=== PATIENT | female | born 1945 | race Caucasian/White ===

== ENCOUNTER 2019-08-30 12:40 | Outpatient (CLI) | payer MEDICARE, MEDICAID, SELFPAY ==
--- NOTE | 2019-08-30 13:02 | MR_ITS ---
WS: [id number] MRI LUMBAR SPINE WITH CONTRAST TECHNIQUE: Sagittal T1, T2 and STIR imaging. Axial T1 and T2 imaging. Post gadolinium imaging was obt ained. CLINICAL INFORMATION: Low back pain COMPARISON: MRI 5 FINDINGS: Remote appearing postoperative changes laminectomy L2-3. Posterior laminectomy defects L4-5 unchanged in appearance. Lumbar scoliosis. No acute compression. Advanced multilevel degenerative disease with mild disc bulging. Disc space narrowing worse at L2-L3 L3-L4 L4-L5 and L5-S1. Subchondral cystic sohail nge L2-L3 and L4-5. L1-L2: Mild annular bulging. Mild central canal stenosis. Narrowing of the subarticular recess bilate rally. Moderate facet arthropathy. Mild right greater than left foraminal narrowing. L2-L3: Mild disc bulging with mild central canal stenosis and narrowing of the subarticular recess bi laterally. Impingement on the traversing L3 nerve roots bilaterally. Moderate facet arthropathy. Mode rate left and no significant right foraminal narrowing. L3-L4: Mild disc bulging and osteophytic ridging. Mild central canal stenosis. Impingement traversing L4 nerve roots bilaterally. Moderate to advanced facet arthropathy. Mild left greater than right for aminal narrowing. L4-L5: Prior decompressive laminectomies. Spinal canal is patent. Mild right and no significant left foraminal narrowing. Mild facet arthropathy. L5-S1: Mild disc bulge with endplate ridging. Mild bilateral foraminal narrowing with osteophytic rid ging. Impingement traversing left S1 nerve root. Mild facet arthropathy. No abnormal gadolinium enhancement. Normal postoperative enhancement. Small right renal cyst. Prior p ostoperative changes anterior cervical fusion MR/MR lumbar spine wo/w con [id number] IMPRESSION: 1. Mild lumbar curve. No acute compression. No high-grade central canal stenos is. 2. Mild central canal stenosis L1-L2, L2-L3, L3-L4. Impingement on the subarti cular recess at these levels. 3. Remote laminectomy L2-3 and decompressed laminectomies L4-5. 4. Disc osteophyte complex L5-S1 impinges the traversing left S1 nerve root an d subarticular recess. 5. Multilevel mild to moderate foraminal narrowing worse at left L2-3, right L 3-4, right L4-5 and left L5-S1. 6. Moderate facet arthropathy worse at right L3-4. 7. Degenerative disease at L2-3 has slightly progressed since 2018. Slight inc rease in the central canal stenosis L3-4. No other remarkable interval changes.
--- NOTE | 2019-08-30 13:45 | XR_ITS ---
WS: [id number] LUMBAR SPINE FLEXION AND EXTENSION TECHNIQUE: 3 views of the lumbar spine: Lateral neutral, flexion, and extension views. CLINICAL INFORMATION: Low back pain COMPARISON: July 04, 2017 FINDINGS: Slight anterolisthesis L3 on L4 unchanged from previous measuring 3mm. This increases slightly on fle xion to 4 mm. This decreases on extension. Disc space narrowing worse at L2-L3 L3-L4 L4-L5 and L5-S1. Endplate degenerative changes at L2-3. Aortic calcification.. XR/XR lumbar spine f/e only [id number] IMPRESSION: 1. Mild flexion instability L3-4. 2. Disc space narrowing worse at L2-L3 L3-L4 and L4-L5 with endplate degenerat arturo changes at L2-3. 3. No acute appearing compression fractures.
[2019-08-30 13:50] LABS: Blood Urea Nitrogen 16 mg/dL (8-23)
== END 2019-08-30 12:41 | disposition home or self-care (01) ==
PROVIDERS: Family Provider Nurse Practitioner Family; PCP Nurse Practitioner Family; Visit Provider Licensed Practical Nurse
DX: M43.16 Spondylolisthesis, lumbar region (principal); M96.1 Postlaminectomy syndrome, not elsewhere classified
CPT/HCPCS: 72120; 72158; 82565; 84520; A9579

== ENCOUNTER → 2019-10-03 09:33 | Outpatient (BNVA) | payer MEDICARE, MEDICAID, SELFPAY | PROVIDERS: Family Provider Nurse Practitioner Family; PCP Nurse Practitioner Family; Referring Provider Licensed Practical Nurse; Visit Provider Anesthesiology Pain Medicine | DX: M51.17 Intervertebral disc disorders with radiculopathy, lumbosacral region (principal); M54.9 Dorsalgia, unspecified; Z79.891 Long term (current) use of opiate analgesic | CPT/HCPCS: 99205 ==

== ENCOUNTER → 2019-10-16 13:23 | Outpatient (BNVA) | payer MEDICARE, MEDICAID, SELFPAY | PROVIDERS: Family Provider Nurse Practitioner Family; PCP Nurse Practitioner Family; Visit Provider Anesthesiology Pain Medicine | DX: G89.29 Other chronic pain (principal); M54.16 Radiculopathy, lumbar region; M96.1 Postlaminectomy syndrome, not elsewhere classified; M54.9 Dorsalgia, unspecified | CPT/HCPCS: 64483; 64484; J1040; J3490 ==

== ENCOUNTER 2019-12-15 12:24 | Emergency (ER) | payer MEDICARE, MEDICAID, SELFPAY ==
[2019-12-15 12:26] VITALS: BP 130/81; PULSE 82; RESP 18; TEMP 36.9; O2SAT 98; BMI 27.4
--- NOTE | 2019-12-15 12:28 | CTR_ITS ---
PROCEDURE INFORMATION: Exam: CT Head Without Contrast Exam date and time: 12/15/2019 12:30 PM Age: 73 years old Clinical indication: Patient HX: C/O dizziness x 3 days; Additional info: Near syncope, dizziness TECHNIQUE: Imaging protocol: Computed tomography of the head without contrast. Radiation optimization: All CT scans at this facility use at least one of these dose optimization techniques: automated exposure control; mA and/or kV adjustment per patient size (includes targeted exams where dose is matched to clinical indication); or iterative reconstruction. COMPARISON: No relevant prior studies available. RADIATION DOSE METRICS: Total DLP (mGy-cm): 759.01 FINDINGS: Brain: Normal. No hemorrhage. Unremarkable white matter. No mass effect. Cerebral ventricles: No ventriculomegaly. Bones/joints: Unremarkable. No acute fracture. Paranasal sinuses: Visualized sinuses are unremarkable. No fluid levels. Mastoid air cells: Visualized mastoid air cells are well aerated. Soft tissues: Unremarkable. CT/CT head wo con* [id number] IMPRESSION: No acute intracranial abnormality. Radiation Dose CTDIVOL = (mGy): DLP = 759.01 (mGy-cm)
--- NOTE | 2019-12-15 12:28 | XRR_ITS ---
PROCEDURE INFORMATION: Exam: XR Chest, 1 View Exam date and time: 12/15/2019 12:30 PM Age: 73 years old Clinical indication: Patient HX: C/O dizziness x 3 days; Additional info: Near syncope TECHNIQUE: Imaging protocol: XR of the chest Views: 1 view. COMPARISON: MD Chest 1 [place] [id number] 08/26/2018 8:42 AM FINDINGS: Lungs: Unremarkable. No consolidation. Pleural space: Unremarkable. No pleural effusion. No pneumothorax. Heart/Mediastinum: Unremarkable. No cardiomegaly. Bones/joints: Unremarkable. XR/XR chest 1V portable [id number] IMPRESSION: No acute findings.
--- NOTE | 2019-12-15 12:29 | ECG_ITS ---
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 Measurements Intervals [place] Rate: 78 P: 58 NC: 163 QRS: -14 QRSD: 81 T: 9 QT: 417 QTc: 476 Interpretive Statements SINUS RHYTHM LOW QRS VOLTAGE IN PRECORDIAL LEADS [QRS DEFLECTION < 1.0 mV IN CHEST LEADS] POSSIBLE ANTERIOR MYOCARDIAL INFARCTION [30 ms Q WAVE IN V3/V4, OR R < 0.2 mV IN V4], PROBABLY OLD Compared to ECG 08/26/2018 08:40:47 Junctional rhythm no longer present Myocardial infarct finding still present Electronically Signed On 12-15-2019 18:11:57 CDT by Salima Vizcarra M.D. [email or web address] community [email or web address] [email or web address] health system.[employer]/store/NU/[id number] f
--- NOTE | 2019-12-15 12:34 | ED_ITS ---
HPI - Syncope General: Chief Complaint: Syncope Stated Complaint: NEAR SYNCOPE; VERTIGO Time Seen by Provider: 12/15/19 12:28 History of Present Illness: HPI narrative: Patient arrived via ambulance complained about dizziness her head feeling funny the last couple days also started sinus patient 2 days ago she denies chest pain shortness of breath except for chronic shortness of breath from smoking denies any joint problems fever chills nausea or vomiting MD complaint: felt faint Onset (ago): day(s) Duration of episode: 2 Associated symptoms: Deny abdominal pain, chest pain, fever(s), headache(s) or nausea Review of Systems Const: Denies: fever(s), chills or body aches Eyes: Denies: change in vision or blurry vision ENMT: Reports: other (Sinus pressure felt dizzy); Denies: throat pain or nasal congestion Card: Denies: chest pain or dyspnea on exertion Resp: Denies: dyspnea, productive cough or non-productive cough GI: Denies: abdominal pain, nausea or vomiting Musc: Denies: extremity pain Skin/Breast: Denies: rash Neuro: Denies: headache(s) Psych: Denies: anxiety or depression Fercho/Lymph: Denies: easy bruising PFSH ED PFSH: Medical History Postlaminectomy syndrome, cervical region Spondylolisthesis, lumbar region Surgical History History of fusion of cervical spine 08/03/2005 C5-C6, C6-C7 ACDFF History of knee replacement Postlaminectomy syndrome, lumbar region 08/10/2015 Dr. Julia Luis. Bilateral L2-L3 laminotomy/foraminotomy, with limited medial facetectomy 05/11/2009 left L5-S1 hemilaminotomy/discectomy/foraminotomy, reexploration. Family History Mother Heart disease Father Heart disease Social History Smoking and tobacco status: former smoker Alcohol intake: former Household members: spouse Marital status: Current occupational status: retired and disabled History of recent travel: No Physical Exam Const: COMMON NORMALS: no acute distress, average body habitus and patient oriented x3 HENMT: COMMON NORMALS: normocephalic HEAD & SCALP: normal to inspection and normocephalic FACE & SINUS: normal facial exam Eye: COMMON NORMALS: conjunctivae normal GENERAL EYE: appearance normal, both eyes and all related structures CONJUNCTIVA: Yes conjunctivae normal Neck/C-Spine: COMMON NORMALS: no JVD Chest: COMMONS NORMALS: normal inspection of the chest Resp: COMMON NORMALS: normal respiratory effort and clear to auscultation bilaterally AUSCULTATION: clear to auscultation bilaterally Cardio: COMMON NORMALS: no JVD, regular rate and regular rhythm RATE: regular rate RHYTHM: regular rhythm PERIPHERAL PULSES: other (Edema nonpitting bilateral lower extremities) GI: COMMON NORMALS: Normal to inspection, nondistended, normoactive bowel sounds present Extremity: COMMON NORMALS: normal to inspection and full ROM Neuro: COMMON NORMALS: patient oriented x3, CN's II-XII intact bilaterally, moves all extremities and no focal motor deficits Course Vital Signs: Vital signs: Vital Signs Temperature 98.5 F 12/15/19 12:26 Pulse Rate 82 12/15/19 12:26 Respiratory Rate 18 12/15/19 12:26 Blood Pressure 130/81 12/15/19 12:26 Pulse Oximetry 98 12/15/19 12:26 MDM - Syncope EKG Data^: EKG 1: EKG interpretation date: 12/15/19 EKG interpretation time: 12:40 Interpretation: Normal sinus Q wave V3 V4 probable old Discharge Plan Discharge Prescriptions: No Action ascorbic acid (vitamin C) 500 mg tablet 250 mg PO DAILY RF: 0 esomeprazole magnesium 20 mg capsule,delayed release(DR/EC) 20 mg PO DAILY RF: 0 diphenhydramine HCl [NightTime Sleep Aid (diphen)] 25 mg capsule 25 mg PO TID PRNRF: 0 tramadol 50 mg tablet 50 mg PO BID PRN (Reason: pain) Qty: 45 RF: 0 gabapentin 100 mg capsule 100 mg PO BID Qty: 60 RF: 0 tizanidine 2 mg tablet 2 mg PO BID PRN (Reason: muscle spasticity) Qty: 60 RF: 0 lorazepam [Ativan] 0.5 mg tablet 0.5 mg PO QID PRNRF: 0 fluticasone propion-salmeterol [Advair Diskus] 500-50 mcg/dose blister with device 1 inh INHALATION BID RF: 0 albuterol sulfate [ProAir HFA] 90 mcg/actuation HFA aerosol inhaler 2 puff INHALATION Q2H PRNRF: 0 furosemide [Lasix] 20 mg tablet 20 mg PO DAILY RF: 0 Incruse Ellipta 62.5 mcg/actuation blister with device 1 inh INHALATION DAILY RF: 0 Coding Level of Care Code ED Director Of Medical Staff Services for Chg Fwd Exam Comprehensive
[2019-12-15 13:04] VITALS: BP 129/78; PULSE 79; RESP 18; O2SAT 96
[2019-12-15 13:11] LABS: Basophils # 0.1 10^3/uL (0.0-0.1); Basophils % 0.7 %; Eosinophils # 0.1 10^3/uL (0.0-0.8); Eosinophils % 1.3 %; Hematocrit 35.9 % (37.0-47.0); Hemoglobin 10.6 g/dL (11.5-15.3); Lymphocytes # 3.1 10^3/uL (0.8-4.8); Mean Corpuscular HGB Conc 29.5 g/dL (30.0-36.0); Mean Corpuscular Volume 84.7 fL (81-99); Mean Platelet Volume 11.8 fL (7.4-10.4); Monocytes # 0.8 10^3/uL (0.2-0.9); Monocytes % 9.7 %; Neutrophils # 4.11 10^3/uL (1.8-7.7); Neutrophils % 50.1 %; Nucleated Red Blood Cells % 0 %; Platelet Count 309 10^3/cmm (130-400); Red Blood Count 4.24 10^6/uL (4.1-5.3); Red Cell Distribution Width 17.8 % (12.1-15.1); White Blood Count 8.2 10^3/uL (4.0-10.0)
[2019-12-15 13:17] LABS: INR 1.02 (0.8-1.2)
[2019-12-15 13:27] LABS: Troponin(5th) Baseline 11 ng/L (0-10)
[2019-12-15 13:34] LABS: Alanine Aminotransferase 15 U/L (0-33); Albumin Level 4.2 g/dL (3.5-5.2); Alkaline Phosphatase 100 IU/L (35-105); Anion Gap 13.9 (5-19); Aspartate Amino Transferase 17 U/L (0-32); Blood Urea Nitrogen 11 mg/dL (8-23); Calcium 9.2 mg/dL (8.5-10.5); Carbon Dioxide 24 mmol/L (22-29); Chloride 107 mmol/L (98-107); Globulin 2.3 g/dL (1.3-4.6); Glucose 102 mg/dL (65-115); NT Pro B Type Natriuretic Pept 137 pg/mL (0-450); Osmolality Calculated 292 mOsm/kg (285-295); Potassium 3.9 mmol/L (3.5-5.1); Sodium 141 mmol/L (136-145); Total Bilirubin 0.4 mg/dL (0.15-1.2); Total Protein 6.5 g/dL (6.6-8.7)
[2019-12-15 13:39] LABS: Bilirubin Urine 1+ (Negative); Blood Urine Neg (Negative); Glucose Urine UA Norm (Normal); Ketones Urine 1+ (Negative); Nitrate Urine Positive (Negative); Protein Urine Neg (Negative); Urine Appearance Hazy (CLEAR); Urine Color Yellow (Yellow); pH Urine 5 (5-7)
[2019-12-15 13:40] LABS: Add Urine Microscopic? YES; Leukocyte Esterase Urine 2+ (Negative); Urobilinogen Urine 1 mg/dL (Negative)
[2019-12-15 13:41] LABS: Bacteria Urine 4+ /hpf; WBC Urine 25-40 /hpf (0-5)
[2019-12-15 13:42] LABS: Add Urine Culture? No; Mucus Urine 1+ /hpf
[2019-12-15 13:43] VITALS: BP 139/88; PULSE 75; RESP 20; O2SAT 99
[2019-12-15] MEDS: cefTRIAXone 1,000 MG in sodium chloride 0.9% (plus) 50 ML 100 MG IV (14:01)
[2019-12-15 14:33] VITALS: BP 133/85; PULSE 82; RESP 20; O2SAT 96
[2019-12-15 14:57] VITALS: BP 132/83; PULSE 86; RESP 20; O2SAT 96
== END 2019-12-15 14:59 | disposition home or self-care (01) ==
PROVIDERS: Emergency Provider Nurse Practitioner Family; Family Provider Nurse Practitioner Family; PCP Nurse Practitioner Family
DX: R55 Syncope and collapse (principal); Z87.891 Personal history of nicotine dependence
CPT/HCPCS: 12345; 36415; 70450; 71045; 80053; 81001; 83880; 84484; 85025; 85610; 93005; 96365; 99283; J0696

== ENCOUNTER 2020-07-23 11:49 | Emergency (ER) | payer MEDICARE, MEDICAID, SELFPAY ==
[2020-07-23 12:12] VITALS: BP 129/78; PULSE 69; RESP 16; TEMP 36.6; O2SAT 98; BMI 29.8
[2020-07-23 12:16] VITALS: BP 129/78; PULSE 69; RESP 18; O2SAT 97
--- NOTE | 2020-07-23 12:26 | XRR_ITS ---
PROCEDURE INFORMATION: Exam: XR Left Tibia and Fibula Exam date and time: 07/23/2020 12:46 PM Age: 74 years old Clinical indication: Injury or trauma; Blunt trauma; Left; Injury details: History--fall today & 3 days ago & 2 weeks ago. RT hip and RT lower leg pain; Prior surgery; Surgery type: Lt knee TECHNIQUE: Imaging protocol: XR Left tibia and fibula. Views: 2 views. COMPARISON: CR Tibia and Fibula LEFT [id number] 08/18/2017 1:59 PM FINDINGS: Bones/joints: There is no evidence for acute fracture or malalignment. Soft tissues: Normal. XR/XR tibia fibula LT 2V [id number] IMPRESSION: No acute findings.
--- NOTE | 2020-07-23 12:26 | XR_ITS ---
WS: [id number] Standing AP pelvis, 2 standing views of the hips, 07/23/2020 Clinical Data: fall Comparison: Pelvis and right hip, 12/20/2018. Findings: No hip fractures are seen. There is a small calcification over the right greater trochanter unchanged . The SI joints and pubic symphysis are normal. There is degenerative change of the lower lumbar vert ebral bodies. The pelvic soft tissues are normal. XR/XR hip BI m 5V wo/w pel* [id number] Impression: 1. Negative AP pelvis. 2. Negative bilateral hips.
--- NOTE | 2020-07-23 12:26 | XRR_ITS ---
PROCEDURE INFORMATION: Exam: XR Left Wrist Exam date and time: 07/23/2020 12:46 PM Age: 74 years old Clinical indication: Injury or trauma; Blunt trauma (contusions or hematomas); Wrist; Left; Injury details: History--fall today & 3 days ago & 2 weeks ago. RT hip and RT lower leg pain TECHNIQUE: Imaging protocol: XR Left wrist. Views: 1 or 2 views. COMPARISON: No relevant prior studies available. FINDINGS: Bones/joints: There is no evidence for acute fracture or malalignment. Soft tissues: Normal. XR/XR wrist LT 2V [id number] IMPRESSION: No acute findings.
--- NOTE | 2020-07-23 12:26 | XRR_ITS ---
PROCEDURE INFORMATION: Exam: XR Right Tibia and Fibula Exam date and time: 07/23/2020 12:46 PM Age: 74 years old Clinical indication: Injury or trauma; Blunt trauma; Right; Injury details: History--fall today & 3 days ago & 2 weeks ago. RT hip and RT lower leg pain TECHNIQUE: Imaging protocol: XR Right tibia and fibula. Views: 2 views. COMPARISON: CR Tibia and Fibula RIGHT [id number] 08/18/2017 1:54 PM FINDINGS: Bones/joints: There is no evidence for acute fracture or malalignment. Soft tissues: Normal. XR/XR tibia fibula RT 2V [id number] IMPRESSION: No acute findings.
--- NOTE | 2020-07-23 12:26 | XRR_ITS ---
PROCEDURE INFORMATION: Exam: XR Right Knee Exam date and time: 07/23/2020 12:46 PM Age: 74 years old Clinical indication: Injury or trauma; Blunt trauma; Knee; Right; Patient HX: Fallen multiple times in the past 2 weeks. RT hip and lower leg pain; Additional info: Fall TECHNIQUE: Imaging protocol: XR Right knee. Views: 3 views. COMPARISON: CR Knee 3 views, RIGHT* [id number] 08/18/2017 1:56 PM FINDINGS: Bones/joints: There is no evidence for acute fracture or malalignment. Soft tissues: Normal. XR/XR knee RT 3V* [id number] IMPRESSION: No acute findings.
--- NOTE | 2020-07-23 12:26 | XRR_ITS ---
PROCEDURE INFORMATION: Exam: XR Right Ankle Exam date and time: 07/23/2020 12:46 PM Age: 74 years old Clinical indication: Injury or trauma; Blunt trauma; Ankle; Right; Injury details: History--fall today & 3 days ago & 2 weeks ago. RT hip and RT lower leg pain TECHNIQUE: Imaging protocol: XR Right ankle. Views: 1 or 2 views. COMPARISON: No relevant prior studies available. FINDINGS: Bones/joints: There is no evidence for acute fracture or malalignment. Soft tissues: Normal. XR/XR ankle RT 2V [id number] IMPRESSION: No acute findings.
--- NOTE | 2020-07-23 12:26 | XRR_ITS ---
PROCEDURE INFORMATION: Exam: XR Left Knee Exam date and time: 07/23/2020 12:46 PM Age: 74 years old Clinical indication: Injury or trauma; Blunt trauma; Left; Prior surgery; Surgery type: Lt knee; Patient HX: History--fall today & 3 days ago & 2 weeks ago. RT hip and RT lower leg pain TECHNIQUE: Imaging protocol: XR Left knee. Views: 3 views. COMPARISON: CR Knee 3 views, LEFT* [id number] 08/18/2017 2:01 PM FINDINGS: Bones/joints: There has been a left knee replacement. No evidence for hardware failure. Soft tissues: Normal. XR/XR knee LT 3V* [id number] IMPRESSION: There are no acute concerning abnormalities.
--- NOTE | 2020-07-23 12:26 | XRR_ITS ---
PROCEDURE INFORMATION: Exam: XR Left Ankle Exam date and time: 07/23/2020 12:46 PM Age: 74 years old Clinical indication: Injury or trauma; Blunt trauma; Ankle; Left; Injury details: History--fall today & 3 days ago & 2 weeks ago. RT hip and RT lower leg pain TECHNIQUE: Imaging protocol: XR Left ankle. Views: 1 or 2 views. COMPARISON: No relevant prior studies available. FINDINGS: Bones/joints: There is no evidence for acute fracture or malalignment. Soft tissues: Normal. XR/XR ankle LT 2V [id number] IMPRESSION: No acute findings.
--- NOTE | 2020-07-23 12:28 | ECG_ITS ---
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 Measurements Intervals [place] Rate: 60 P: 16 IA: 118 QRS: 9 QRSD: 80 T: 3 QT: 413 QTc: 414 Interpretive Statements SINUS RHYTHM WITH SHORT IA INTERVAL LOW QRS VOLTAGE IN PRECORDIAL LEADS [QRS DEFLECTION < 1.0 mV IN CHEST LEADS] NONSPECIFIC T-WAVE ABNORMALITY Compared to ECG 12/15/2019 12:30:44 Short IA interval now present T-wave abnormality now present Myocardial infarct finding no longer present Electronically Signed On 07-23-2020 23:48:45 CDT by Roseann Alexander M.D. [email or web address] [email or web address][facility], [place] [facility].[employer]/store/OM/[id number]
--- NOTE | 2020-07-23 12:49 | ED_ITS ---
HPI - Fall General: Chief Complaint: Fall Stated Complaint: FALL Time Seen by Provider: 07/23/20 12:20 History of Present Illness: HPI Narrative: The patient is a 74-year-old female who comes to the ER after a fall. She said she lost her balance and fell down her couple of steps coming out of a shed. She complains of bilateral ankle, carpio, knee, and hip pain worse on the right. Also left wrist pain. Denies any chest pain, shortness of breath, rib pain, abdominal pain, back pain, neck pain. She denies loss of consciousness and was not on the ground for long. EMS gave 4 mg of morphine prior to arrival. She has had multiple trip and falls recently as well at home. She is not on a blood thinner. MD complaint: fall Fall from: standing and down stairs (#) Place fall occurred: home Loss of consciousness: None Prolonged down time: no Symptoms prior to fall: none Context: tripped/slipped Severity: moderate Quality: sharp Associated symptoms-after fall: Reports no associated symptoms; Denies abdominal pain, chest pain, confusion, difficulty walking, headache(s) or neck pain Review of Systems General: Reports: 10 or more systems reviewed and unremarkable except in HPI and below Const: Denies: fatigue Eyes: Denies: change in vision, blurry vision or eye redness ENMT: Denies: throat pain, swelling of lips/tongue, ear or mastoid pain or nasal congestion Card: Denies: chest pain, palpitations, irregular heart rhythm, edema, dyspnea on exertion or orthopnea Resp: Denies: dyspnea, productive cough or non-productive cough GI: Denies: abdominal pain, diarrhea or GI cramping : Denies: flank pain, difficulty voiding, urinary frequency or urinary urgency Musc: Reports: extremity pain and joint pain; Denies: neck pain, back pain, joint redness, limited range of motion or muscle weakness Skin/Breast: Denies: rash, pruritus, erythema, skin pain or skin tenderness Neuro: Denies: headache(s), numbness in extremities, weakness in extremities, sensory changes, difficulty walking, dizziness, confusion or Slurred speech present Psych: Denies: anxiety or depression Endo: Denies: polyuria All/Imm: Denies: urticaria, throat swelling or tongue swelling PFS ED PFSH: Medical History (Updated 07/23/20 @ 15:21 by Henri Hathaway MD) Postlaminectomy syndrome, cervical region Spondylolisthesis, lumbar region Surgical History History of fusion of cervical spine 08/03/2005 C5-C6, C6-C7 ACDFF History of knee replacement Postlaminectomy syndrome, lumbar region 08/10/2015 Dr. Julia Luis. Bilateral L2-L3 laminotomy/foraminotomy, with limited medial facetectomy 05/11/2009 left L5-S1 hemilaminotomy/discectomy/foraminotomy, reexploration. Family History Mother Heart disease Father Heart disease Social History Smoking and tobacco status: former smoker Alcohol intake: former Household members: spouse Marital status: Current occupational status: retired and disabled History of recent travel: No Physical Exam Const: COMMON NORMALS: no acute distress, average body habitus, patient oriented x3, no limitations, healthy appearing, alert and well nourished GENERAL APPEARANCE: cooperative, comfortable, well kempt and well developed ORIENTATION/CONSCIOUSNESS: Yes awake, Yes oriented to person, Yes oriented to place and Yes oriented to time HENMT: COMMON NORMALS: normocephalic, external ears normal and Normal external nose present HEAD & SCALP: normal to inspection and normocephalic NOSE: Normal external nose present EXTERNAL EAR: Yes external ears normal MOUTH: Normal oral and palatal mucosa present THROAT: posterior oropharynx normal Eye: COMMON NORMALS: Equal, round and reactive pupils present and EOMs intact bilaterally GENERAL EYE: appearance normal, both eyes and all related structures PUPIL: Yes Equal, round and reactive pupils present Neck/C-Spine: COMMON NORMALS: full ROM, no lymphadenopathy, no meningeal signs and no JVD GENERAL: Yes normal visual inspection Lymph: LYMPHATIC: no lymphadenopathy noted Chest: COMMONS NORMALS: normal inspection of the chest and normal palpation of entire chest wall Resp: COMMON NORMALS: normal respiratory effort, No retractions, No use of accessory muscles, clear to auscultation bilaterally and percussion normal EFFORT & INSPECTION: Yes able to speak in complete sentences AUSCULTATION: clear to auscultation bilaterally PERCUSSION: percussion normal Cardio: COMMON NORMALS: no JVD, regular rate, regular rhythm, S1 normal heart sound present, S2 normal heart sound present and Peripheral pulses 2+ throughout RATE: regular rate RHYTHM: regular rhythm HEART SOUNDS: S1 normal heart sound present and S2 normal heart sound present PERIPHERAL PULSES: Peripheral pulses 2+ throughout GI: COMMON NORMALS: Normal to inspection, nondistended, normoactive bowel sounds present, Soft to palpation, non-tender and no masses INSPECTION: Yes normal to inspection PALPATION: Yes Soft to palpation : COMMON NORMALS: Yes no CVA tenderness BLADDER/KIDNEY EXAM: Yes no CVA tenderness Back/Pelvis: COMMON NORMALS: no CVA tenderness, thoracic and lumbar spine normal to inspection, no thoracic nor lumbar tenderness and thoraco-lumbar ROM normal Extremity: COMMON NORMALS: normal to inspection, full ROM, capillary refill normal, no joint enlargement and no pedal edema NARRATIVE EXTREMITY EXAM: She has tenderness to palpation and movement of bilateral ankles, shins, knees, hips. Posterior right pelvic area is the worst she says. Major ligaments intact in all joints. She has abrasions to bilateral shins from her fall. She also has a left wrist abrasion from breaking her fall. She complains of pain there mildly as well. Neurovascularly intact to fingertips and toes GENERAL: Yes normal exam except as noted Neuro: COMMON NORMALS: patient oriented x3, CN's II-XII intact bilaterally, moves all extremities, no focal motor deficits, no sensory deficits noted and gait normal SENSORIUM/ORIENTATION: Yes alert, Yes oriented to person, Yes oriented to place and Yes oriented to time MENINGEAL SIGNS: Yes no meningeal signs Psych: COMMON NORMALS: mental status grossly normal, Normal thought process present, cooperative, normal affect and speech normal APPEARANCE: Yes well kempt ATTITUDE: Yes calm SPEECH: Yes normal speech THOUGHT PROCESS: Normal thought process present Skin: COMMON NORMALS: no rashes or lesions noted NARRATIVE SKIN EXAM: Normal except abrasions to bilateral shins and left wrist. No active bleeding. No significant bruising noted anywhere. GENERAL SKIN EXAM: no rashes or lesions noted Course Vital Signs: Vital signs: Vital Signs Temperature 97.9 F 07/23/20 12:12 Pulse Rate 63 07/23/20 13:40 Respiratory Rate 18 07/23/20 12:16 Blood Pressure 140/88 07/23/20 13:40 Pulse Oximetry 94 07/23/20 13:40 MDM - Fall MDM Narrative: Medical decision making narrative: The patient came in after a fall. She says she normally walks with a cane but has been without it for a little while. She is trying to get it back but it is lost somewhere. I recommended she purchase 1 or possibly a walker to help her get around. She has an appointment with her primary care provider next Monday which is an appropriate follow-up. Return to the ER at any times with worsening symptoms. Keep floor free of clutter to prevent falls and walk with a cane or walker. X- rays were negative for fractures and major ligaments are intact. Likely a contusion from a fall. Discharge Plan Discharge Patient Disposition: Home Clinical Impression: Fall, Contusion Condition: Stable Prescriptions: No Action ascorbic acid (vitamin C) 500 mg tablet 500 mg PO DAILY RF: 0 albuterol sulfate [ProAir HFA] 90 mcg/actuation HFA aerosol inhaler 2 puff INHALATION Q4H PRN (Reason: Shortness Of Breath) RF: 0 Lasix 40 mg Tablet 40 mg PO QAM RF: 0 amlodipine 5 mg tablet 5 mg PO QAM RF: 0 Tylenol Arthritis 650 mg Tablet Extended Release 1,300 mg PO BID RF: 0 alprazolam 0.25 mg tablet 0.25 mg PO BID PRN (Reason: Anxiety) RF: 0 potassium chloride 20 mEq tablet,ER particles/crystals 20 meq PO BID RF: 0 pantoprazole 40 mg tablet,delayed release (DR/EC) 40 mg PO QAM RF: 0 fluoxetine 20 mg capsule 20 mg PO DAILY RF: 0 Emergen-C 1,000 mg Powder Effervescent In Packet 1 ea PO DAILY RF: 0 Back and Body Pain Reliever 500-32.5 mg Tablet 1 tab PO DAILY RF: 0 Discharge Orders: Discharge ED (Routine); Ordered 07/23/20 Ordered By: Henri Hathaway Referrals: eLlia Hackett FNP [Primary Care Provider] - Discharge Diet: Advance as tolerated Discharge Activity: Limit activity as instructed Patient Instructions: Contusion, Fall Prevention (ED), Opioid Safety Activity Restrictions/Additional Instructions: You have fallen and likely have deep bruises called contusions. Please get your cane or purchase a walker to help you get around as you are having increased falls as of late. Follow-up with your primary care provider next Monday as you already have scheduled and try to get your cane KIM. If you cannot get one, consider purchasing a new one or a walker to help you get around. Keep the floor clear of clutter to prevent falls. Return to the ER with worsening symptoms at any time. 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
[2020-07-23 13:40] VITALS: BP 140/88; PULSE 63; O2SAT 94
== END 2020-07-23 15:26 | disposition home or self-care (01) ==
PROVIDERS: Emergency Provider Family Medicine; PCP Nurse Practitioner Family
DX: S80.812A Abrasion, left lower leg, initial encounter (principal); S80.811A Abrasion, right lower leg, initial encounter; S60.812A Abrasion of left wrist, initial encounter; Z87.891 Personal history of nicotine dependence; W19.XXXA Unspecified fall, initial encounter
CPT/HCPCS: 73100; 73523; 73562; 73590; 73600; 93005; 99283

== ENCOUNTER 2021-01-04 08:45 | Outpatient (CLI) | payer MEDICARE, MEDICAID, SELFPAY ==
[2021-01-04 10:53] LABS: Basophils # 0.1 10^3/uL (0.0-0.1); Eosinophils # 0.1 10^3/uL (0.0-0.8); Eosinophils % 1.2 %; Hematocrit 36.8 % (37.0-47.0); Hemoglobin 10.7 g/dL (11.5-15.3); Mean Corpuscular HGB Conc 29.1 g/dL (30.0-36.0); Mean Corpuscular Hemoglobin 24.1 pg (28.0-34.0); Mean Corpuscular Volume 82.9 fl (81-99); Mean Platelet Volume 11.3 fL (7.4-10.4); Monocytes # 0.6 10^3/uL (0.2-0.9); Neutrophils # 4.53 10^3/uL (1.8-7.7); Neutrophils % 54.7 %; Nucleated Red Blood Cells % 0 %; Platelet Count 372 10^3/cmm (130-400); Red Blood Count 4.44 10^6/uL (4.1-5.3); Red Cell Distribution Width 19.1 % (12.1-15.1); White Blood Count 8.3 10^3/uL (4.0-10.0)
[2021-01-04 11:19] LABS: Alanine Aminotransferase 13 U/L (0-33); Albumin Level 4.4 g/dL (3.5-5.2); Alkaline Phosphatase 89 IU/L (35-105); Anion Gap 17.1 (5-19); Aspartate Amino Transferase 21 U/L (0-32); Blood Urea Nitrogen 7 mg/dL (8-23); Calcium 9.7 mg/dL (8.5-10.5); Carbon Dioxide 24 mmol/L (22-29); Chloride 101 mmol/L (98-107); Ferritin 11 ng/mL (15-150); Globulin 3.3 g/dL (1.3-4.6); Glucose 105 mg/dL (65-115); Iron 18 ug/dL (37-145); Osmolality Calculated 284 mOsm/kg (285-295); Percent Saturation 4.5 % (20-50); Potassium 4.1 mmol/L (3.5-5.1); Sodium 138 mmol/L (136-145); Total Bilirubin 0.4 mg/dL (0.15-1.2); Total Iron Binding Capacity 399 mcg/dl; Total Protein 7.7 g/dL (6.6-8.7); Unsaturated Iron Binding 381 ug/dL (112-347)
--- NOTE | 2021-01-04 19:50 | ONC CON_ITS ---
Dr. Levin New Patient Note Patient: Guadalupe Mcneill Unit #: [id number]: [id number] Dicatated By: Clive Levin M.D.Date of Visit: Jan 04, 2021 Onc MED New Patient/Consult Referring Physician: ISIDRO ALCALA, F.N.P. Chief Complaint: Anemia. History of Present Illness: This is a 75-year-old woman with anemia, presumed to be due to iron deficiency. She has a known history of iron deficiency anemia. In the past it has been unresponsive to oral iron supplements, and she has received parenteral iron on 2 previous occasions. On her follow-up visit with Cyndie Hackett in November 2020 she was found to be mildly anemic with hemoglobin 10.0 g and hematocrit 32.2%. Red cell indices were mildly hypochromic/microcytic. The white blood cell count was normal at 7300 and the platelet count was normal at 324,000. Comprehensive metabolic profile at that time was unremarkable. The available records did not include any serum iron studies. She complains that she has been feeling tired for months. She has still been pretty active, and she is able to do light work. ECOG score is 1. Her appetite has been good and her weight is stable. She occasionally has had low-grade fever. She sweats pretty heavily with activity, but she does not have night sweating. She says her breathing is mostly pretty good. She does have frequent cough. Is productive of greenish sputum, occasionally with a spot of blood in it. She occasionally has chest pain. She has nausea and she does have occasional vomiting with spicy or greasy foods. She has acid reflux. She apparently was found to have evidence of Chamberlain's esophagus by EGD, but I do not have the actual path report available. Her stools lately have been runny, but she has not been aware of any blood in the stool or black stools. She has some urinary frequency and nocturia. She has joint pain, mainly in the knees. She also reports having persistent pain in her left heel. She has chronic back pain, for which she has been going to pain clinic. She does not complain of headache. She does have some numbness in her hands. She says she bleeds a lot with minor cuts. Past Medical History: Her medical history includes anxiety, asthma, Chamberlain's esophagus, degenerative arthritis, degenerative disease of the spine, gastroesophageal reflux disease, and hypertension. She has a history of bleeding ulcer in 1998, and she has a history of iron deficiency anemia. Past Surgical History: Her surgical/procedural history includes appendectomy, cervical spine surgery x 2 in 1995, lower back surgery in 1990 and 1994, right elbow surgery, left total knee replacement in 2016, and cholecystectomy in 1987. Medications: amLODIPine Besylate (5 mg) Tablet Oral daily, Furosemide (40 mg) Tablet Oral daily, Klor-Con M20 (20 meq) Tablet, controlled release Oral b.i.d., Omeprazole 1 Tablet (of 20 mg) Capsule Delayed Release Oral daily, Vitamin C Tablet Oral daily Allergies: No Known Allergies. Social History: Ms. Mcneill is . She has a history of smoking for 40 years, up to 2 packs of cigarettes daily. She quit smoking in 2000. She drinks a glass of red wine at bedtime. Family History: Father had heart disease and diabetes. He at age 83. Mother of heart disease at age 89. Three brothers all with heart disease and diabetes. Review Of Symptoms: Constitutional - She has been feeling tired for months. Appetite is good and weight is stable. She has had occasional fever. She sweats a lot with activity. She does not having night sweating. ECOG score is 1, Eyes - No change in vision, ENMT - No hearing loss. She has tinnitus. She has some sinus congestion/drainage. She has occasional epistaxis. No mouth sores. She has occasional sore throat. No difficulty swallowing, Hematologic/Lymphatic - She bleeds a lot with minor cuts, Respiratory - No shortness of breath. She frequent cough productive of greenish sputum, occasionally with a spot of blood. No pleuritic pain, Cardiovascular - She occasionally has chest pain. No palpitations, Gastrointestinal - She has nausea and she has occasional vomiting with spicy or greasy foods. She has acid reflux. Lately her stools have been runny, but she has not been aware of any blood in the stool or black stools, Genitourinary (F) - No dysuria or hematuria. She has urinary frequency and nocturia. No urgency or incontinence, Musculoskeletal - She has joint pain, mainly in her knees. She also has pain in her left foot/heel. She has been going to pain clinic for her back pain, Integumentary - No skin rash or other skin changes, Neurologic - No headache. She rarely has dizziness. She has some numbness in her hands. No other focal neurologic symptoms, Psychiatric - She says she gets nervous, and she still has some depression. She does not sleep well at night. Vital Signs: Performed on Jan 04, 2021 09:40: 6, 4, 29.52, 1.83 sq.m, 64 in, 96 %, 82 /min, 18 /min, 150/82 mm(hg) (HIGH), 97.2 F (LOW), and 172 lbs (HIGH). Physical Examination: Constitutional - She looks pretty good generally, Eyes - Sclerae nonicteric. Conjunctivae clear, ENMT - No lesions noted in the oral cavity, Neck - No mass or thyromegaly, Hematologic/Lymphatic - No cervical, clavicular, or axillary adenopathy, Respiratory - Lungs sound clear with some decrease in air movement bilaterally, Cardiovascular - Heart rhythm is regular. There is a II/ systolic murmur. There is no gallop or rub noted, Abdomen - Soft. Liver and spleen are not enlarged. There is no abdominal mass or ascites noted and there is no inguinal adenopathy, Back/Spine - There is tenderness in the lumbar spine area, Extremities - No edema. I am not able to palpate pedal pulses, but both feet are warm to touch, Integumentary - No rashes. No suspicious skin lesions noted, Neurologic - No focal neurologic deficits noted. Problem List: 1. Iron deficiency anemia. In the past it has been refractory to oral iron supplementation. 2. Hypertension. 3. GERD, reportedly with associated Chamberlain's esophagus. 4. She has a history of bleeding ulcer. 5. Degenerative arthritis/degenerative disease of the spine. 6. Asthma/COPD. 7. Depression. Problems Addressed with this Encounter and Plan: 1. Patient with iron deficiency anemia. It is uncertain to what extent it may be due to GI blood loss versus inadequate oral iron absorption, but in the past it has been refractory to oral iron supplementation. As such, she will have additional laboratory studies today to include CBC, CMP, serum iron studies, and ferritin. If these are consistent with iron deficiency, she will be given parenteral iron replacement with 2 infusions of Injectafer. She will be scheduled for 1-month interval follow-up. 2. She reportedly was found to have evidence of Chamberlain's esophagus by EGD. I will verify the pathology, as it may require follow-up. 3. She has been having persistent left heel pain, apparently following an injury. I will arrange for referral to a pharmacogeneticist. Signed By: Clive Levin M.D. <<Signature on File>>
== END 2021-01-04 08:46 | disposition home or self-care (01) ==
LOC: ONCMED 08:50
PROVIDERS: PCP Nurse Practitioner Family; Visit Provider Internal Medicine Medical Oncology
DX: D50.9 Iron deficiency anemia, unspecified (principal); F41.9 Anxiety disorder, unspecified; J45.909 Unspecified asthma, uncomplicated; M47.819 Spondylosis without myelopathy or radiculopathy, site unspecified; K21.9 Gastro-esophageal reflux disease without esophagitis; K22.70 Barrett's esophagus without dysplasia; I10 Essential (primary) hypertension; M25.572 Pain in left ankle and joints of left foot; Z79.899 Other long term (current) drug therapy; Z87.891 Personal history of nicotine dependence; Z87.11 Personal history of peptic ulcer disease
CPT/HCPCS: 36415; 80053; 82728; 83540; 83550; 85025; 99205

== ENCOUNTER 2021-01-26 08:07 | Outpatient (CLI) | payer MEDICARE, MEDICAID, SELFPAY ==
[2021-01-26] MEDS: acetaminophen 325 mg Tablet 650 MG PO (09:05)
[2021-01-26] MEDS: sodium chloride 0.9% 250 ML 999 ML IV ×2 (09:15→11:45)
[2021-01-26] MEDS: diphenhydrAMINE 50 mg/mL SDV 1mL 25 MG IV (09:18)
[2021-01-26] MEDS: iron dextran 25 MG in SYRINGE 1 EACH 30 MG IVP (10:10)
== END 2021-01-26 08:08 | disposition home or self-care (01) ==
LOC: ONCMED 08:11
PROVIDERS: PCP Nurse Practitioner Family; Visit Provider Internal Medicine Hematology & Oncology
DX: D50.9 Iron deficiency anemia, unspecified (principal)
CPT/HCPCS: 96365; 96366; 96367; 96375; J1100; J1200; J1750; J7030; J7050

== ENCOUNTER → 2021-02-17 13:40 | Outpatient (BNVA) | payer MEDICARE, MEDICAID, SELFPAY | PROVIDERS: PCP Nurse Practitioner Family; Referring Provider Internal Medicine Medical Oncology; Visit Provider Podiatrist Foot & Ankle Surgery | DX: M79.672 Pain in left foot (principal) | CPT/HCPCS: 73630 ==

== ENCOUNTER 2021-03-04 08:02 | Outpatient (CLI) | payer MEDICARE, MEDICAID, SELFPAY ==
[2021-03-04 08:31] LABS: Basophils # 0.1 10^3/uL (0.0-0.1); Basophils % 0.6 %; Eosinophils # 0.1 10^3/uL (0.0-0.8); Eosinophils % 1.1 %; Hematocrit 39.4 % (37.0-47.0); Hemoglobin 12.3 g/dL (11.5-15.3); Lymphocytes # 2.8 10^3/uL (0.8-4.8); Mean Corpuscular HGB Conc 31.2 g/dL (30.0-36.0); Mean Corpuscular Hemoglobin 27.8 pg (28.0-34.0); Mean Corpuscular Volume 88.9 fl (81-99); Mean Platelet Volume 12.6 fL (7.4-10.4); Monocytes # 0.7 10^3/uL (0.2-0.9); Monocytes % 8.7 %; Neutrophils # 4.79 10^3/uL (1.8-7.7); Neutrophils % 56.4 %; Nucleated Red Blood Cells % 0 %; Platelet Count 245 10^3/cmm (130-400); Red Blood Count 4.43 10^6/uL (4.1-5.3); Red Cell Distribution Width 25.4 % (12.1-15.1); White Blood Count 8.5 10^3/uL (4.0-10.0)
[2021-03-04 08:44] LABS: Ferritin 234 ng/mL (15-150); Iron 38 ug/dL (37-145); Percent Saturation 13.8 % (20-50); Total Iron Binding Capacity 275 mcg/dl; Unsaturated Iron Binding 237 ug/dL (112-347)
--- NOTE | 2021-03-06 11:04 | ONC FU_ITS ---
Dr. Levin Patient Follow-Up Note Patient: Guadalupe Mcneill Unit #: [id number]: 1945 Dicatated By: Clive Leivn M.D.Date of Visit:Mar 04, 2021 Onc Med Follow-up/Prog Note Chief Complaint: Anemia. History of Present Illness: This is a 75-year-old woman with iron deficiency anemia. On a follow-up visit with Lelia Hackett in November 2020 she was found to be mildly anemic with hemoglobin 10.0 g and hematocrit 32.2%. Red cell indices were mildly hypochromic/microcytic. The white blood cell count was normal at 7300 and the platelet count was normal at 324,000. She had a known history of iron deficiency anemia which previously had been unresponsive to oral iron supplements. She had been given parenteral iron replacement on 2 prior occasions. I had seen her initially on 01/04/2021. Her CBC showed hemoglobin 10.7 g with hematocrit 36.8%. The red cell indices were borderline low with MCV 82 and MCH 24. Her serum iron studies showed low transferrin saturation 4.5% and the ferritin was low at 11 ng/mL, consistent with iron deficiency. She was given parenteral iron replacement with a single infusion of low molecular weight iron dextran on 01/26/2021. She tolerated it with no adverse effects. She is seen for a follow-up visit. She is feeling better generally, though she says she still tires easily. She is able to do light work. ECOG score is 1. Following her parenteral iron, she did try going back on an oral iron supplement, but she was not able to tolerate it due to GI side effects. She has had good appetite. She has not had fever. She occasionally has a little sweating. She reports having epistaxis at times, though not prolonged. She intermittently has sore throat. She has chronic cough. She does not complain of shortness of breath. She has had chest pain, mainly when she is upset. She sometimes has nausea and she does have acid reflux, though medication does help with that. She has a little diarrhea at times. She has no complaints. She has pain in her left wrist and in her left foot. She does not complain of headache or dizziness. She has numbness in her hands, but it is intermittent. Medications: amLODIPine Besylate (5 mg) Tablet Oral daily, Furosemide (40 mg) Tablet Oral daily, Klor-Con M20 (20 meq) Tablet, controlled release Oral b.i.d., Omeprazole 1 Tablet (of 20 mg) Capsule Delayed Release Oral daily, Vitamin C Tablet Oral daily Allergies: No Known Allergies. Vital Signs: Performed on Mar 04, 2021 09:41 Height - 64.00 in Weight - 169.6 lbs (LOW) BSA - 1.82 sq.m BMI - 29.11 Temperature - 97.6 F (LOW) Pulse - 85 /min Respiration - 18 /min BP - 113/80 mm(hg) O2 Sat - 98 % Pain - 5 Fatigue - 2 Physical Examination: Constitutional - She looks pretty good generally, Eyes - Sclerae nonicteric. Conjunctivae clear, ENMT - No lesions noted in the oral cavity, Hematologic/Lymphatic - No cervical, clavicular, or axillary adenopathy, Respiratory - Lungs sound clear with some decrease in air movement bilaterally, Cardiovascular - Heart rhythm is regular. There is a II/ systolic murmur. There is no gallop or rub noted, Abdomen - Soft. Liver and spleen are not enlarged. There is no abdominal mass or ascites noted and there is no inguinal adenopathy, Extremities - No edema, Neurologic - No focal neurologic deficits noted. Lab/Imaging: Test performed on Mar 04, 2021 08:15 Ferritin 234 ng/mL Iron 38 mcg/dL Iron Binding Capacity (TIBC) 275 mcg/dl % Iron Saturation 13.8 % UIBC 237 mcg/dL WBC 8.5 10 3/uL RBC 4.43 10 6/uL HGB 12.3 g/dL HCT 39.4 % MCV 88.9 fl MCH 27.8 pg MCHC 31.2 g/dL RDW 25.4 % Platelet Count 245 10 3/cmm MPV 12.6 fL Neutrophils 4.79 10 3/uL Lymphocytes 2.8 10 3/uL Monocytes 0.7 10 3/uL Eosinophils 0.1 10 3/uL Basophils 0.1 10 3/uL Neutrophil % 56.4 % Lymphocyte % 33.0 % Monocyte % 8.7 % Eosinophil % 1.1 % Basophils % 0.6 % NRBC % 0 % Problem List: 1. Iron deficiency anemia. In the past it has been refractory to oral iron supplementation. 2. Hypertension. 3. GERD, reportedly with associated Chamberlain's esophagus. 4. She has a history of bleeding ulcer. 5. Degenerative arthritis/degenerative disease of the spine. 6. Asthma/COPD. 7. Depression. Problems Addressed with this Encounter and Plan: 1. Patient with iron deficiency anemia. It is uncertain to what extent it may be due to GI blood loss versus inadequate oral iron absorption. She has been intolerant of oral iron supplements. She has had a good response to parenteral iron replacement with low molecular weight iron dextran. She will now continue regular follow-up with Lelia Hackett, which should include a blood count at least every 3 months. I will see her again as needed for recurrence of the anemia. 2. She reportedly was found to have evidence of Chamberlain's esophagus by EGD. It is being followed by Dr. Salmon. Signed By: Clive Levin M.D. <<Signature on File>>
== END 2021-03-04 08:03 | disposition home or self-care (01) ==
LOC: ONCMED 08:05
PROVIDERS: PCP Nurse Practitioner Family; Visit Provider Internal Medicine Medical Oncology
DX: D50.9 Iron deficiency anemia, unspecified (principal); I10 Essential (primary) hypertension; K21.9 Gastro-esophageal reflux disease without esophagitis; K27.4 Chronic or unspecified peptic ulcer, site unspecified, with hemorrhage; M47.899 Other spondylosis, site unspecified; J44.9 Chronic obstructive pulmonary disease, unspecified; F32.A Depression, unspecified; K22.70 Barrett's esophagus without dysplasia
CPT/HCPCS: 36415; 82728; 83540; 83550; 85025; 99214

== ENCOUNTER → 2021-03-22 13:47 | Outpatient (BNVA) | payer MEDICARE, MEDICAID, SELFPAY | PROVIDERS: PCP Nurse Practitioner Family; Visit Provider Specialist | DX: M25.562 Pain in left knee (principal) | CPT/HCPCS: 73560; 73565 ==

== ENCOUNTER 2021-03-26 06:00 | Outpatient (RCR) | payer MEDICARE, MEDICAID, SELFPAY | END 2021-04-05 23:59 | disposition home or self-care (01) | LOC: SPT 06:00 | PROVIDERS: PCP Nurse Practitioner Family; Referring Provider Specialist; Visit Provider Specialist | DX: M54.50 Low back pain, unspecified (principal) | CPT/HCPCS: 97161 ==

== ENCOUNTER 2021-04-06 06:00 | Outpatient (RCR) | payer MEDICARE, MEDICAID, SELFPAY | END 2021-05-03 23:59 | disposition home or self-care (01) | LOC: SPT 06:00 | PROVIDERS: PCP Nurse Practitioner Family; Referring Provider Specialist; Visit Provider Specialist | DX: M54.50 Low back pain, unspecified (principal) | CPT/HCPCS: 97110 ==

== ENCOUNTER → 2021-04-15 11:12 | Outpatient (BNVA) | payer MEDICARE, MEDICAID, SELFPAY | PROVIDERS: PCP Nurse Practitioner Family; Visit Provider Orthopaedic Surgery | DX: M54.50 Low back pain, unspecified (principal) | CPT/HCPCS: 72110 ==

== ENCOUNTER 2021-05-18 12:24 | Emergency (ER) | payer MEDICARE, MEDICAID, SELFPAY ==
[2021-05-18] VITALS (7 sets, daily range): BP systolic 104–125; BP diastolic 67–81; PULSE 77–97; RESP 16–22; TEMP 37.1; O2SAT 91–94; BMI 28.1
--- NOTE | 2021-05-18 12:28 | ED_ITS ---
HPI - Fall General: Chief Complaint: Fall Stated Complaint: GENERALIZED WEAKNESS, BACK PAIN FALL Time Seen by Provider: 05/18/21 12:28 Source: patient Mode of arrival: EMS Limitations: no limitations History of Present Illness: 75-year-old female presents emergency room with EMS after a fall. Is complaining of pain in her neck and her low back. She said she has been extremely weak for the last week she initially had some diarrhea and has had productive cough since then. No difficulty with speech or swallowing she denies any chest pain she is a former smoker quit about 20 years ago. MD complaint: fall Onset (ago): minute(s) Fall from: standing Fall witnessed: no Place fall occurred: home Loss of consciousness: Unsure Prolonged down time: no Symptoms prior to fall: lightheadedness and dizziness Context: tripped/slipped Location of injury: head and neck Associated symptoms-after fall: Reports difficulty walking, neck pain, short of breath and weakness; Denies abdominal pain, chest pain, confusion, headache(s), hematuria, lightheadedness, numbness or vertigo Review of Systems Const: Reports: body aches, change in appetite, fatigue and malaise; Denies: fever(s) or chills ENMT: Denies: throat pain, ear or mastoid pain, nasal discharge or nasal congestion Card: Denies: chest pain or lightheadedness Resp: Reports: dyspnea and productive cough; Denies: non-productive cough GI: Reports: nausea and diarrhea; Denies: abdominal pain : Denies: hematuria Musc: Reports: neck pain Skin/Breast: Denies: rash or pruritus Neuro: Reports: difficulty walking; Denies: headache(s), vertigo or confusion PFS ED PFSH: Medical History Postlaminectomy syndrome, cervical region Spondylolisthesis, lumbar region Surgical History History of fusion of cervical spine 08/03/2005 C5-C6, C6-C7 ACDFF History of knee replacement Date of Procedure: 11/29/2016 Procedure: Left total knee arthroplasty utilizing the following components: The SciApsathlon Total Knee System with a Size 4 Triathlon Posterior Stabilized Left Cemented Femur and a Size 4 Triathlon Donald Tibial Baseplate Cemented with a Size 4 x 13 Mm Posterior Stabilized X3 Insert and Asymmetric 32 x 10 mm Patella Postlaminectomy syndrome, lumbar region 08/10/2015 Dr. Julia Luis. Bilateral L2-L3 laminotomy/foraminotomy, with limited medial facetectomy 05/11/2009 left L5-S1 hemilaminotomy/discectomy/foraminotomy, reexploration. Family History Mother Heart disease Father Heart disease Social History Smoking and tobacco status: former smoker Alcohol intake: former Household members: spouse Marital status: Current occupational status: retired and disabled History of recent travel: No Physical Exam Const: COMMON NORMALS: no acute distress GENERAL APPEARANCE: cooperative and comfortable ORIENTATION/CONSCIOUSNESS: Yes awake, Yes oriented to person, Yes oriented to place and Yes oriented to time HENMT: COMMON NORMALS: normocephalic, atraumatic and hearing grossly normal bilaterally HEAD & SCALP: normocephalic and atraumatic Eye: COMMON NORMALS: Equal, round and reactive pupils present, EOMs intact bilaterally, conjunctivae normal and no scleral icterus CONJUNCTIVA: Yes conjunctivae normal PUPIL: Yes Equal, round and reactive pupils present Neck/C-Spine: COMMON NORMALS: full ROM, no lymphadenopathy, supple and no JVD Resp: COMMON NORMALS: normal respiratory effort, No retractions, No use of accessory muscles and clear to auscultation bilaterally AUSCULTATION: clear to auscultation bilaterally Cardio: COMMON NORMALS: no JVD, regular rate, regular rhythm and No murmurs present (Cardio) RATE: regular rate RHYTHM: regular rhythm GI: COMMON NORMALS: Soft to palpation and No hepatosplenomegaly present AUSCULTATION: Yes normoactive bowel sounds PALPATION: Yes Soft to palpation, No Tenderness to palpation present (GI), No Guarding due to palpation present (GI) and Yes No hepatosplenomegaly present Extremity: COMMON NORMALS: normal to inspection, capillary refill normal, no clubbing, cyanosis or edema, no calf tenderness and no pedal edema Neuro: SENSORIUM/ORIENTATION: Yes oriented to person, Yes oriented to place and Yes oriented to time Skin: COMMON NORMALS: no rashes or lesions noted GENERAL SKIN EXAM: no rashes or lesions noted Course Vital Signs: Vital signs: Vital Signs Temperature 98.7 F 05/18/21 12:26 Pulse Rate 83 05/18/21 14:55 Respiratory Rate 16 05/18/21 14:55 Blood Pressure 113/76 05/18/21 14:55 Pulse Oximetry 93 05/18/21 14:55 MDM - Fall Medical Decision Making Labs and imaging reviewed. Patient does appear to have mild bladder infection she is feeling somewhat better give her a little bit of fluid shot of Rocephin and discharge her home have her complete a course of Levaquin that she does have a productive cough no clear infiltrate on her x-ray. Return if she has further problems Medical Records I reviewed the patient's medical records. Lab Data I reviewed the patient's lab results. : 05/18/21 10:56 05/18/21 10:56 Radiology Impressions Chest X-Ray 05/18/21 12:43 Impression: Atherosclerosis. Cervical Spine X-Ray 05/18/21 12:51 Impression: 1. Negative for compression fracture. 2. Intact anterior cervical disc fusion C3-C5. 3. No change in osteoarthritis and disc narrowing at C6-7. Head CT 05/18/21 12:51 IMPRESSION: No acute abnormality. Lumbar Spine X-Ray 05/18/21 12:58 Impression: 1. Negative for compression fracture. 2. No change in dextroscoliosis and multilevel degenerative disc narrowing. 3. Osteoarthritis L2-L5. Laboratory Results WBC 12.3 10^3/uL (4.0-10.0) H 05/18/21 10:56 RBC 3.59 10^6/uL (4.1-5.3) L 05/18/21 10:56 Hgb 10.8 g/dL (11.5-15.3) L 05/18/21 10:56 Hct 32.9 % (37.0-47.0) L 05/18/21 10:56 MCV 91.6 fl (81-99) 05/18/21 10:56 MCH 30.1 pg (28.0-34.0) 05/18/21 10:56 MCHC 32.8 g/dL (30.0-36.0) 05/18/21 10:56 RDW 14.4 % (12.1-15.1) 05/18/21 10:56 Plt Count 338 10^3/cmm (130-400) 05/18/21 10:56 MPV 11.7 fL (7.4-10.4) H 05/18/21 10:56 Neut % (Auto) 90.1 % 05/18/21 10:56 Lymph % (Auto) 3.8 % 05/18/21 10:56 [place] % (Auto) 5.1 % 05/18/21 10:56 Eos % (Auto) 0.1 % 05/18/21 10:56 Baso % (Auto) 0.2 % 05/18/21 10:56 Neut # (Auto) 11.03 10^3/uL (1.8-7.7) H 05/18/21 10:56 Lymph # (Auto) 0.5 10^3/uL (0.8-4.8) L 05/18/21 10:56 [place] # (Auto) 0.6 10^3/uL (0.2-0.9) 05/18/21 10:56 Eos # (Auto) 0.0 10^3/uL (0.0-0.8) 05/18/21 10:56 Baso # (Auto) 0.0 10^3/uL (0.0-0.1) 05/18/21 10:56 Nucleated RBC % (auto) 0 % 05/18/21 10:56 Nucleated RBCs # 0.0 /100WBC 05/18/21 10:56 Sodium 134 mmol/L (136-145) L 05/18/21 10:56 Potassium 3.6 mmol/L (3.5-5.1) 05/18/21 10:56 Chloride 98 mmol/L (98-107) 05/18/21 10:56 Carbon Dioxide 19 mmol/L (22-29) L 05/18/21 10:56 Anion Gap 20.6 (5-19) H 05/18/21 10:56 BUN 15 mg/dL (8-23) 05/18/21 10:56 Creatinine 0.7 mg/dL (0.5-0.9) 05/18/21 10:56 GFR Calculation Not Reportable 05/18/21 10:56 Glucose 116 mg/dL (65-115) H 05/18/21 10:56 Calculated Osmolality 280 mOsm/kg (285-295) L 05/18/21 10:56 Calcium 9.5 mg/dL (8.5-10.5) 05/18/21 10:56 Total Bilirubin 0.7 mg/dL (0.15-1.2) 05/18/21 10:56 AST 42 U/L (0-32) H 05/18/21 10:56 ALT 28 U/L (0-33) 05/18/21 10:56 Alkaline Phosphatase 95 IU/L (35-105) 05/18/21 10:56 Creatine Kinase 48 U/L (26-192) 05/18/21 10:56 Total Protein 7.3 g/dL (6.6-8.7) 05/18/21 10:56 Albumin 3.1 g/dL (3.5-5.2) L 05/18/21 10:56 Globulin 4.2 g/dL (1.3-4.6) 05/18/21 10:56 Urine Color Dark yellow (Yellow) 05/18/21 13:04 Urine Appearance Clear (CLEAR) 05/18/21 13:04 Urine pH 6 (5-7) 05/18/21 13:04 Ur Specific [place] 1.015 (1.005-1.030) 05/18/21 13:04 Urine Protein Neg (Negative) 05/18/21 13:04 Urine Glucose (UA) Norm (Normal) 05/18/21 13:04 Urine Ketones 2+ (Negative) H 05/18/21 13:04 Urine Blood Neg (Negative) 05/18/21 13:04 Urine Nitrate Positive (Negative) H 05/18/21 13:04 Urine Bilirubin Neg (Negative) 05/18/21 13:04 Urine Urobilinogen 4 mg/dL (Negative) H 05/18/21 13:04 Ur Leukocyte Esterase Negative (Negative) 05/18/21 13:04 Urine RBC Rare /hpf (0-2) 05/18/21 13:04 Urine WBC 0-4 /hpf (0-5) H 05/18/21 13:04 Ur Squamous Epith Cells Rare /hpf (0-5) 05/18/21 13:04 Amorphous Sediment Not Reportable 05/18/21 13:04 Urine Bacteria 3+ /hpf (NONE) H 05/18/21 13:04 Coronavirus 229E (PCR) Not detected (NOT DETECT) 05/18/21 13:20 SARS-CoV-2 (PCR) Not detected (NOT DETECT) 05/18/21 13:20 Discharge Plan Discharge Patient Disposition: Home Clinical Impression: Cystitis Condition: Stable Prescriptions: New levofloxacin 750 mg tablet 750 mg PO DAILY 7 Days 0RF No Action ascorbic acid (vitamin C) 500 mg tablet 500 mg PO DAILY 0RF albuterol sulfate [ProAir HFA] 90 mcg/actuation HFA aerosol inhaler 2 puff INHALATION Q4H PRN (Reason: Shortness Of Breath) 0RF furosemide [Lasix] 40 mg Tablet 40 mg PO QAM 0RF amlodipine 5 mg tablet 5 mg PO QAM 0RF potassium chloride 20 mEq tablet,ER particles/crystals 20 meq PO BID 0RF pantoprazole 40 mg tablet,delayed release (DR/EC) 40 mg PO QAM 0RF Discharge Orders: Discharge ED (Routine); Ordered 05/18/21 Ordered By: Kenneth Melgoza Referrals: Lelia Hackett FNP [Primary Care Provider] - Discharge Diet: Usual diet Discharge Activity: Resume usual activity Patient Instructions: Opioid Safety Activity Restrictions/Additional Instructions: Follow-up with your doctor within the next week. Coding Level of Care Code ED Senior Mechanical Technician for Navjot Ruiz
--- NOTE | 2021-05-18 12:43 | XR_ITS ---
WS: [email or web address] Portable AP upright chest, 05/18/2021 Clinical Data: dyspnea/cough Comparison: PA and lateral chest, 04/16/2021 Findings: No nodules, masses or effusions are seen. The heart is normal. The pulmonary vascularity is not remarkable. No pneumothorax or pneumonia is seen. The aortic arch and descending thoracic aorta show calcification. Monitor leads are on the chest wall. XR/XR chest 1V portable [id number] Impression: Atherosclerosis.
--- NOTE | 2021-05-18 12:43 | ECG_ITS ---
[facility] Test Date: 2021-05-18 Pat Name: Guadalupe Mcneill Department: Room: Gender: Female Pit Inspector: : 1945 Requested By: Kenneth Cantu Order Number: [id number] Jhonathan MD: Vini Johnston M.D. Measurements Intervals [place] Rate: 94 P: -83 MD: 99 QRS: 4 QRSD: 80 T: 18 QT: 363 QTc: 454 Interpretive Statements SINUS RHYTHM LOW QRS VOLTAGE IN PRECORDIAL LEADS [QRS DEFLECTION < 1.0 mV IN CHEST LEADS] Compared to ECG 07/23/2020 13:37:25 Short MD interval no longer present T-wave abnormality no longer present Electronically Signed On 05-18-2021 22:24:42 CDT by Vini Johnston M.D. [id number]
--- NOTE | 2021-05-18 12:51 | CT_ITS ---
WS: [email or web address] CT head wo con* [id number] REASON FOR EXAM: closed head injury IV CONTRAST ADMINISTERED: Noncontrast TOTAL EXAM DLP: 864.[address] scans at [facility] use at least one of these dose optimization techniques: automat ed exposure control; mA and/or kV adjustment per patient size (includes targeted exams where dose is matched to clinical indication); or iterative reconstruction. FINDINGS: Examination is unchanged compared to 12/15/2019. No midline shift or other significant mass effect. No findings of intra or extra-axial hemorrhage. CSF spaces of normal volume and configuration. No focal brain parenchymal abnormality. The bony calvarium and the base of the skull are intact. CT/CT head wo con* [id number] IMPRESSION: No acute abnormality.
--- NOTE | 2021-05-18 12:51 | XR_ITS ---
WS: [email or web address] Cervical spine, 3 views, 05/18/2021 Clinical Data: fall/trauma/neck pain Comparison: Lateral cervical spine, 09/26/2013. Findings: No compression fractures are seen. The anterior cervical disc fusion from C3 through C5 wit h artificial disks at C3-4 and C4-5 remains intact. There is anterior osteophyte Feit bridging at C6- C7 with disc narrowing at C6-C7. There is no prevertebral soft tissue swelling. The odontoid is unrem arkable. The soft tissues of the neck and the lung apices are normal. XR/XR cervical spine 3V* [id number] Impression: 1. Negative for compression fracture. 2. Intact anterior cervical disc fusion C3-C5. 3. No change in osteoarthritis and disc narrowing at C6-7.
--- NOTE | 2021-05-18 12:58 | XR_ITS ---
WS: [email or web address] Lumbar spine, 3 views, 05/18/2021 Clinical Data: fall/pain Comparison: Lumbar spine, 04/15/2021 Findings: No compression fractures or subluxation is seen. There is a dextroscoliosis with degenerative disc na rrowing from L2-L3 through L5-S1. There is osteoarthritis of all the lumbar vertebral bodies L2-L5. T he transverse processes and SI joints are normal. There is calcification of the wall of the abdominal aorta but no aneurysm. XR/XR lumbar spine 2-3V* [id number] Impression: 1. Negative for compression fracture. 2. No change in dextroscoliosis and multilevel degenerative disc narrowing. 3. Osteoarthritis L2-L5.
[2021-05-18 13:11] LABS: Basophils % 0.2 %; Eosinophils % 0.1 %; Hematocrit 32.9 % (37.0-47.0); Hemoglobin 10.8 g/dL (11.5-15.3); Lymphocytes # 0.5 10^3/uL (0.8-4.8); Lymphocytes % 3.8 %; Mean Corpuscular HGB Conc 32.8 g/dL (30.0-36.0); Mean Corpuscular Hemoglobin 30.1 pg (28.0-34.0); Mean Corpuscular Volume 91.6 fl (81-99); Mean Platelet Volume 11.7 fL (7.4-10.4); Monocytes # 0.6 10^3/uL (0.2-0.9); Monocytes % 5.1 %; Neutrophils # 11.03 10^3/uL (1.8-7.7); Neutrophils % 90.1 %; Nucleated Red Blood Cells % 0 %; Platelet Count 338 10^3/cmm (130-400); Red Blood Count 3.59 10^6/uL (4.1-5.3); Red Cell Distribution Width 14.4 % (12.1-15.1); White Blood Count 12.3 10^3/uL (4.0-10.0)
[2021-05-18 13:30] LABS: Alanine Aminotransferase 28 U/L (0-33); Albumin Level 3.1 g/dL (3.5-5.2); Alkaline Phosphatase 95 IU/L (35-105); Anion Gap 20.6 (5-19); Aspartate Amino Transferase 42 U/L (0-32); Blood Urea Nitrogen 15 mg/dL (8-23); Calcium 9.5 mg/dL (8.5-10.5); Carbon Dioxide 19 mmol/L (22-29); Chloride 98 mmol/L (98-107); Creatine Phosphokinase 48 U/L (26-192); Globulin 4.2 g/dL (1.3-4.6); Glucose 116 mg/dL (65-115); Osmolality Calculated 280 mOsm/kg (285-295); Potassium 3.6 mmol/L (3.5-5.1); Sodium 134 mmol/L (136-145); Total Bilirubin 0.7 mg/dL (0.15-1.2); Total Protein 7.3 g/dL (6.6-8.7)
[2021-05-18 13:48] LABS: Glucose Urine UA Norm (Normal); Protein Urine Neg (Negative); Specific Gravity, Urine 1.015 (1.005-1.030); Urine Appearance Clear (CLEAR); Urine Color Dark Yellow (Yellow); pH Urine 6 (5-7)
[2021-05-18 13:49] LABS: Add Urine Culture? Yes; Add Urine Microscopic? YES; Bacteria Urine 3+ /hpf; Bilirubin Urine Neg (Negative); Blood Urine Neg (Negative); Ketones Urine 2+ (Negative); Leukocyte Esterase Urine Negative (Negative); Nitrate Urine Positive (Negative); RBC Urine RARE /hpf (0-2); Squamous Epithelial Cell Urine RARE /hpf (0-5); Urobilinogen Urine 4 mg/dL (Negative); WBC Urine 0-4 /hpf (0-5)
[2021-05-18 15:26] LABS: Adenovirus Not Detected (NOT DETECT); Chlamydia Pneumoniae Not Detected (NOT DETECT); Coronavirus 229E,HKU1,NL63,OC4 Not Detected (NOT DETECT); Human Metapneumovirus Not Detected (NOT DETECT); Human Rhinovirus/Enterovirus Not Detected (NOT DETECT); Influenza A Not Detected (NOT DETECT); Influenza A H1 Not Detected (NOT DETECT); Influenza A H1-2009 Not Detected (NOT DETECT); Influenza A H3 Not Detected (NOT DETECT); Influenza B Not Detected (NOT DETECT); Mycoplasma Pneumoniae Not Detected (NOT DETECT); Parainfluenza Virus Type 1 Not Detected (NOT DETECT); Parainfluenza Virus Type 2 Not Detected (NOT DETECT); Parainfluenza Virus Type 3 Not Detected (NOT DETECT); Parainfluenza Virus Type 4 Not Detected (NOT DETECT); Respiratory Syncytial Virus A Not Detected (NOT DETECT); Respiratory Syncytial Virus B Not Detected (NOT DETECT); SARS-COV-2 Not Detected (NOT DETECT)
[2021-05-18] MEDS: cefTRIAXone 1,000 MG in lidocaine 1% 2.1 ML 2 MG IM (15:52)
[2021-05-18] MEDS: sodium chloride 0.9% 1,000 ML 999 ML IV (15:57)
== END 2021-05-18 18:56 | disposition home or self-care (01) ==
PROVIDERS: Emergency Provider Family Medicine; PCP Nurse Practitioner Family
DX: N30.90 Cystitis, unspecified without hematuria (principal); Z87.891 Personal history of nicotine dependence
CPT/HCPCS: 70450; 71045; 72040; 72100; 80053; 81001; 82550; 85025; 87077; 87086; 87186; 87635; 93005; 96360; 96372; 99284; J0696; J7030

== ENCOUNTER 2021-06-02 11:40 | Outpatient (CLI) | payer MEDICARE, MEDICAID, SELFPAY ==
--- NOTE | 2021-06-02 11:45 | MR_ITS ---
WS: [email or web address] MRI LUMBAR SPINE NONCONTRAST TECHNIQUE: Sagittal T1, T2 and STIR imaging. Axial T1 and T2 imaging. CLINICAL INFORMATION: M54.50 - Low back pain, unspecified COMPARISON: Numerous prior MRI lumbar spine most recent August 30, 2019 and FINDINGS: Chronic postoperative changes laminectomy L2-3. Posterior laminectomy defects L4-5 unchanged in [facility]. Mild S-shaped lumbar scoliosis. No acute compression fractures. Advanced multilevel degenerative disease with mild disc bulging. Disc space narrowing worse at L2-L3, L3-L4, L4-L5, and L5-S1 similar to previous. L1-L2: Mild disc bulging with mild central canal stenosis. Narrowing of the LEFT subarticular recess. Mild facet arthropathy. Mild LEFT greater than RIGHT foraminal narrowing. L2-L3: Prior laminectomy defects. Mild disc bulging with osteophytic ridging. Impingement traversing L3 nerve roots bilaterally. Mild central canal stenosis is unchanged. Moderate facet arthropathy. Mod erate LEFT and mild RIGHT foraminal narrowing. L3-L4: Mild disc bulging with impingement on the RIGHT subarticular recess and traversing RIGHT L4 ne rve root. Mild central canal stenosis. Prior laminectomy defects. Moderate facet arthropathy. Mild bi lateral foraminal narrowing. L4-L5: Prior laminectomy defects. Mild disc bulging with narrowing of the subarticular recess bilater ally. Mild RIGHT foraminal narrowing. LEFT foramen is patent. L5-S1: Mild disc bulging and osteophytic ridging. Impingement on the traversing LEFT S1 nerve root. M ild bilateral foraminal narrowing. Mild facet arthropathy. Partially visualized RIGHT renal cyst. Visualized pelvic bony structures: Normal. Paravertebral soft tissues: Normal. MR/MR lumbar spine wo con* [id number] IMPRESSION: 1. Mild lumbar curve. No acute compression. Multilevel degenerative disc disea se similar to previous. 2. Mild central canal stenosis L1-L2, L2-L3, and L3-L4 unchanged. 3. Impingement on the traversing RIGHT L4 nerve root at the L3-L4 level. 4. Moderate LEFT L2-L3 foraminal narrowing impinges the exiting LEFT L2 nerve root. 5. Mild bilateral L3-L4 foraminal narrowing. 6. Disc osteophyte complex L5-S1 impinges the traversing LEFT S1 nerve root. 7. Prior laminectomies L2-L3 and L4-L5. 8. Overall no significant changes compared to previous.
== END 2021-06-02 11:41 | disposition home or self-care (01) ==
LOC: RAD 11:42
PROVIDERS: PCP Nurse Practitioner Family; Visit Provider Orthopaedic Surgery
DX: M51.36 Other intervertebral disc degeneration, lumbar region (principal); M48.061 Spinal stenosis, lumbar region without neurogenic claudication; M25.78 Osteophyte, vertebrae; M96.1 Postlaminectomy syndrome, not elsewhere classified
CPT/HCPCS: 72148

== ENCOUNTER → 2021-07-13 11:01 | Outpatient (BNVA) | payer MEDICARE, MEDICAID, SELFPAY | PROVIDERS: PCP Nurse Practitioner Family; Visit Provider Physician Assistant | DX: M41.9 Scoliosis, unspecified (principal); M48.062 Spinal stenosis, lumbar region with neurogenic claudication | CPT/HCPCS: 99214; 99999 ==

== ENCOUNTER 2021-09-08 12:47 | Inpatient (IN) | payer MEDICARE, MEDICAID, SELFPAY ==
[2021-09-03 11:19] VITALS: BMI 28.1
[2021-09-08] VITALS (25 sets, daily range): BP systolic 72–138; BP diastolic 46–85; PULSE 57–98; RESP 14–56; TEMP 36.4–36.9; O2SAT 93–100
--- NOTE | 2021-09-08 | XR_ITS ---
WS: [email or web address] Lumbar spine, C-arm fluoroscopy, 09/08/2021 Clinical Data: fusion T-10 to pelvis Comparison: None. Findings: There is a posterior thoracolumbar sacral fusion from T10 to S1 with bilateral pedicle screws and con necting rods. There are old oblique orthopedic screws fusing both SI joints. XR/XR lumbar spine 1V [id number] Impression: Posterior thoracolumbar sacral fusion
--- NOTE | 2021-09-08 | SCC_ITS ---
Procedure done: 1. T10- S1 instrumentation 2. Lumbopelvic instrumentation 3. T10 - pelvis fusion 4. L2/3 Lamincetomy with partial facetectomy 5. L3/4 laminectomy with partial facetectomy 6. L4/5 Laminectomy with partial facetectomy 7. L5/S1 laminectomy with partial facetectomy 8. use of computer navigation/ stereotactic for spine 9. bone marrow aspirated from iliac crest on the right 10. use of allograft 11. Use of autograft 9 seconds of fluoroscopic guidance, for a cumulative dose of 34.2 mGy, was provided to Dr. Das by the radiology department. C-arm images of the lumbar spine were saved for the patient's permanent record. [facility]
--- NOTE | 2021-09-08 06:23 | ECG_ITS ---
[facility] Test Date: 2021-09-08 Pat Name: Guadalupe Mcneill Department: Room: Gender: Female Customer Care Voice Consultant: : 1945 Requested By: Fahad Gamble Order Number: [id number] Jhonathan MD: Vini Johnston M.D. Measurements Intervals [place] Rate: 66 P: -38 MT: 112 QRS: -31 QRSD: 82 T: -36 QT: 406 QTc: 426 Interpretive Statements SINUS RHYTHM WITH SHORT MT INTERVAL LEFT AXIS DEVIATION [QRS AXIS < -30] LOW QRS VOLTAGE [QRS DEFLECTION < 0.5/1.0 mV IN LIMB/CHEST LEADS] Compared to ECG 05/18/2021 12:51:17 Short MT interval now present Left-axis deviation now present Electronically Signed On 09-08-2021 18:01:06 CDT by Vini Johnston M.D. [id number]
--- NOTE | 2021-09-08 06:37 | W.PM.OPSUD ---
Surgery/Procedure H&P Update DATE OF PROCEDURE: September 08, 2021 DATE H&P PERFORMED: 09/08/21 PREOP DIAGNOSIS: Lumbar stenosis w/Neurogenic Claudication and DDD w/scoliosis PLANNED PROCEDURE: Operation Date: 09/08/21 07:00 Proposed Procedures p Posterior Lumbar Interbody Fusion FUSION T10 TO PELVIS PLIF L5-S1 W/ DECOMPRESSION L1 DOWN TO S1 [id number]/(Not Applicable) - Fahad Das DO s Lumbar Spine Decompression(Not Applicable) - Fahad Das DO
--- NOTE | 2021-09-08 06:39 | P.HP_ITS ---
Providers/Chief Complaint Primary Care Provider: ISIDRO Chatman Chief Complaint: FUSION C98-[id number] PLIF L5-S1 W/ DECOMPRESSION L1-S History of Present Illness Guadalupe Mcneill is a 75 year old female he continues to have pain and num bness from the lower back radiating down the leg and into the toes. Patient would like to discuss treatment options.? She has had previous surgical decompressions by Dr. Luis number of years ago.? She has been through injections the pain clinic but of only been short-lived with pain relief.? She has been through facet ablation procedures with only short-term relief.? She is wanting something more definitive done.? She can only walk short distance for she has to sit down. Review of Systems Const: Denies: fever(s) or chills Card: Denies: chest pain or dyspnea on exertion Resp: Denies: dyspnea or productive cough GI: Denies: abdominal pain, nausea or vomiting : Denies: difficulty voiding Musc: Reports: limited range of motion (due to lower back pain with walking, standing, bending, twisting); Denies: joint pain or joint swelling Skin/Breast: Denies: changes in skin color or dry skin Neuro: Denies: numbness in extremities or weakness in extremities Psych: Denies: anxiety [place]/Lymph: Denies: easy bruising or easy bleeding Medications/Allergies Home Medications Medication Instructions Recorded Confirmed Last Taken Type albuterol sulfate 90 mcg/actuation 2 puff INHALATION Q4H PRN gm 07/19/19 09/03/21 Unknown History aerosol inhaler (ProAir HFA) ascorbic acid (vitamin C) 500 mg 500 mg PO DAILY 10/03/19 09/08/21 09/07/21 07:00 History tablet amlodipine 5 mg tablet 5 mg PO QAM 07/23/20 09/08/21 09/07/21 07:00 History furosemide 40 mg tablet (Lasix) 40 mg PO QAM 07/23/20 09/08/21 09/07/21 07:00 History pantoprazole 40 mg tablet,delayed 40 mg PO QAM 07/23/20 09/08/21 09/07/21 07:00 History release potassium chloride 20 mEq 20 meq PO BID 07/23/20 09/08/21 09/07/21 19:00 History tablet,extended release(part/cryst) Bone Growth Stimulator E0748 #1 ea 08/23/21 Unknown Rx vitamin B complex 1 dose PO DAILY 09/03/21 09/08/21 09/07/21 07:00 History Allergies Allergy/AdvReac Type Severity Reaction Status Date / Time No Known Allergies Allergy Verified 09/08/21 06:15 PFSH Acute PFSH: Medical History Postlaminectomy syndrome, cervical region Spondylolisthesis, lumbar region Surgical History History of fusion of cervical spine 08/03/2005 C5-C6, C6-C7 ACDFF History of knee replacement Date of Procedure: 11/29/2016 Procedure: Left total knee arthroplasty utilizing the following components: The [employer] triathlon Total Knee System with a Size 4 Triathlon Posterior Stabilized Left Cemented Femur and a Size 4 Triathlon [place] Tibial Baseplate Cemented with a Size 4 x 13 Mm Posterior Stabilized X3 Insert and Asymmetric 32 x 10 mm Patella Postlaminectomy syndrome, lumbar region 08/10/2015 Dr. Julia Luis. Bilateral L2-L3 laminotomy/foraminotomy, with limited medial facetectomy 05/11/2009 left L5-S1 hemilaminotomy/discectomy/foraminotomy, reexploration. Family History Mother Heart disease Father Heart disease Social History Smoking and tobacco status: former smoker Alcohol intake: former Household members: spouse Marital status: Current occupational status: retired and disabled History of recent travel: No Vitals/I&O/Wt Last Vital Signs Temp 97.9 F 09/08/21 06:13 Pulse 69 09/08/21 06:13 Resp 17 09/08/21 06:13 BP 130/85 09/08/21 06:13 Pulse Ox 96 09/08/21 06:13 Physical Exam Narrative: CONSTITUTIONAL: The patient is a normal appearing [] in no apparent distress. GENERAL: Patient in no acute distress. CARDIAC: Regular rate and rhythm. CHEST: Normal inspiratory effort, normal respiratory rate. ABDOMEN: Soft and nontender. SKIN: Clear, warm and intact. NEURO?PSYCH: The patient is alert and oriented to person, place and time. Sensorv /SILT Motor StrengthShoulder abduction C5 5/5Wrist extension C6 5/5Elbow extension C7 5/5Hand Instructional Technologist C8 5/5Finger abduction T15/5 Radial/ Ulnar/ Median n intact LowerSensory (SILT)Motor StrengthHin flexion L2/3Ant/inner thigh 5/5Hip adduction L2/3 5/5Knee extension L4 Lat thigh, 5/5Toe dorsiflexion L5 5/5Ankle dorsiflexion L5/ H25Flkyqpd flexion S1 5/5 DTRBleeps 2+Triceps 2+Brachioradialis 2+Patellar 2+Achilles 2+ MUSCULOSKELETAL: [] UPPEREXTREMITIES: The patient had full active ROM in fingers, wrist, elbow, and shoulder. The patient demonstrated ability to fully flex/extend/abduct/adduct fingers, make ok sign, cross 2nd/3rd digits, extend 1st digit fully.. Radial pulse 2+, CR<2 seconds. LOWER EXTREMITIES: Pt has full, active ROM of toes, ankle, knee, and hip. Dorsalis pedis/posterior tibialis pulses 2+, CR<2 seconds. SPINE: Skin warm, dry, intact. Data : 09/08/21 06:31 A&P Assessment and plan (1) Spinal stenosis, lumbar region, with neurogenic claudication: T10 to pelvis with decompression Status: Acute Attestations Medical Necessity Statement*: failed conservative tx Coding Level of Care Code Acute Supervisor Contingents for [facility] Fwd Diagnoses Spinal stenosis, lumbar region, with neurogenic claudication M48.062
[2021-09-08] MEDS: sodium chloride 0.9% 1,000 ML 30 ML IV (06:44)
[2021-09-08 06:56] LABS: Blood Urea Nitrogen 18 mg/dL (8-23); Calcium 9.3 mg/dL (8.5-10.5); Carbon Dioxide 24 mmol/L (22-29); Chloride 102 mmol/L (98-107); Glucose 96 mg/dL (65-115); Osmolality Calculated 286 mOsm/kg (285-295); Sodium 137 mmol/L (136-145)
[2021-09-08] MEDS: ceFAZolin 2,000 MG in sodium chloride 0.9% (plus) 50 ML 100 MG IV ×2 (07:00→10:56)
[2021-09-08 07:45] LABS: Anion Gap 15.3 (5-19); Potassium 4.3 mmol/L (3.5-5.1)
--- NOTE | 2021-09-08 07:50 | P.ANESASSM_ITS ---
Pre-Anesthetic Assessment Height/Weight: Height 1.63 m Weight 74.389 kg Temp Pulse Resp BP Pulse Ox 97.9 F 69 17 130/85 96 09/08/21 06:13 09/08/21 06:13 09/08/21 06:13 09/08/21 06:13 09/08/21 06:13 Preop Diagnosis: Lumbar stenosis w/Neurogenic Claudication and DDD w/scoliosis Operation Date: 09/08/21 07:00 Proposed Procedures p Posterior Lumbar Interbody Fusion FUSION T10 TO PELVIS PLIF L5-S1 W/ DECOMPRESSION L1 DOWN TO S1 [id number]/ [id number]/(Not Applicable) - DO carlos Longoria Lumbar Spine Decompression(Not Applicable) - Fahad Das DO Familial anesthetic complications: None Was Beta Wai taken within 24 hours: N/A Was Clonidine taken within 24 hours: N/A Last intake: Intake Last Liquid Date 09/07/21 Last Liquid Time 21:00 Last Solid Date 09/07/21 Last Solid Time 19:00 Social No alcohol and No tobacco Exam alert, oriented x 3, clear to auscultation bilaterally and regular rate & rhythm Airway Submandibular: within normal limits Cervical ROM: within normal limits Mallampati: Class II Dentition: false Pulmonary Chronic Obstructive Pulmonary Disease CV/HEM Hypertension GI Gastroesophageal Reflux Disease Musc/skel Lower Back Pain and Osteoarthritis/DJD Anesthetic Plan ASA status: 3 Anesthesia: General Other: A.line, tx OK Medications/Allergies Home Medications Medication Instructions Recorded Confirmed Last Taken Type albuterol sulfate 90 mcg/actuation 2 puff INHALATION Q4H PRN 07/19/19 09/03/21 Unknown History aerosol inhaler (ProAir HFA) ascorbic acid (vitamin C) 500 mg 500 mg PO DAILY 10/03/19 09/08/21 09/07/21 07:00 History tablet amlodipine 5 mg tablet 5 mg PO QAM 07/23/20 09/08/21 09/07/21 07:00 History furosemide 40 mg tablet (Lasix) 40 mg PO QAM 07/23/20 09/08/21 09/07/21 07:00 History pantoprazole 40 mg tablet,delayed 40 mg PO QAM 07/23/20 09/08/21 09/07/21 07:00 History release potassium chloride 20 mEq 20 meq PO BID 07/23/20 09/08/21 09/07/21 19:00 History tablet,extended release(part/cryst) Bone Growth Stimulator E0748 #1 ea 08/23/21 Unknown Rx vitamin B complex 1 dose PO DAILY 09/03/21 09/08/21 09/07/21 07:00 History Allergies Allergy/AdvReac Type Severity Reaction Status Date / Time No Known Allergies Allergy Verified 09/08/21 06:15 Current Medications Generic Name Dose Route Start Last Admin Trade Name Freq PRN Reason Stop Dose Admin Sodium Chloride 1,000 mls @ 30 mls/hr 09/08/21 06:15 09/08/21 06:44 Sodium Chloride 0.9% IV 09/09/21 06:14 30 mls/hr .Q24H FROYLAN Administration PFSH Anesthesia Medical History Postlaminectomy syndrome, cervical region Spondylolisthesis, lumbar region Surgical History History of fusion of cervical spine 08/03/2005 C5-C6, C6-C7 ACDFF History of knee replacement Date of Procedure: 11/29/2016 Procedure: Left total knee arthroplasty utilizing the following components: The [employer] triathlon Total Knee System with a Size 4 Triathlon Posterior Stabilized Left Cemented Femur and a Size 4 Triathlon Flushing Tibial Baseplate Cemented with a Size 4 x 13 Mm Posterior Stabilized X3 Insert and Asymmetric 32 x 10 mm Patella Postlaminectomy syndrome, lumbar region 08/10/2015 Dr. Julia Luis. Bilateral L2-L3 laminotomy/foraminotomy, with limited medial facetectomy 05/11/2009 left L5-S1 hemilaminotomy/discectomy/foraminotomy, reexploration. Family History Mother Heart disease Father Heart disease Social History Smoking and tobacco status: former smoker Alcohol intake: former Household members: spouse Marital status: Current occupational status: retired and disabled History of recent travel: No Data Anesthesia : 09/08/21 06:31 BMP 09/08/21 06:31 Sodium 137 Potassium 4.3 Chloride 102 Carbon Dioxide 24 BUN 18 Creatinine 0.8 Glucose 96 Calcium 9.3 Cardiac Studies: 2 No Data to Display
[2021-09-08] MEDS: heparin, porcine 1,000 unit/mL INJ 10 mL 10000 UNIT IRRIGATION (08:05)
[2021-09-08 08:06] LABS: Hematocrit 35.4 % (37.0-47.0); Hemoglobin 11.4 g/dL (11.5-15.3); Mean Corpuscular HGB Conc 32.2 g/dL (30.0-36.0); Mean Corpuscular Hemoglobin 29.1 pg (28.0-34.0); Mean Corpuscular Volume 90.3 fl (81-99); Mean Platelet Volume 12.3 fL (7.4-10.4); Platelet Count 194 10^3/cmm (130-400); Red Blood Count 3.92 10^6/uL (4.1-5.3); Red Cell Distribution Width 13.6 % (12.1-15.1); White Blood Count 5.6 10^3/uL (4.0-10.0)
[2021-09-08] MEDS: acetaminophen 1,000 MG/100 ML PIGGYBACK 400 MG IV (08:20)
[2021-09-08 08:37] LABS: Absolute Eosinophils 0.1 10^3/cmm (0.0-0.7); Absolute Neutrophil 3.3 10^3/cmm (1.4-6.5); Absolute Segmented Neutrophil 3.2 10/cmm (1.6-7.1); Band Neutrophils Absolute 0.1 10^3/cmm (0.0-1.2); Eosinophils 2 %; Lymphocytes 36 %; Monocytes Absolute 0.2 10^3/cmm (0.1-0.6); Platelet Estimate Decreased (Normal); Segmented Neutrophils 57 %; Total Cells Counted 100 (0-100)
[2021-09-08] MEDS: vancomycin 1,000 MG SDV 1000 MG XX (11:30)
--- NOTE | 2021-09-08 12:17 | P.OP_ITS ---
Operative Report Date of procedure: September 08, 2021 Pre-op diagnosis: Preop Diagnosis Lumbar stenosis w/Neurogenic Claudication and DDD w/scoliosis Post-op diagnosis: same Procedure done: 1. T10- S1 instrumentation 2. Lumbopelvic instrumentation 3. T10 - pelvis fusion 4. L2/3 Lamincetomy with partial facetectomy 5. L3/4 laminectomy with partial facetectomy 6. L4/5 Laminectomy with partial facetectomy 7. L5/S1 laminectomy with partial facetectomy 8. use of computer navigation/ stereotactic for spine 9. bone marrow aspirated from iliac crest on the right 10. use of allograft 11. Use of autograft Surgeon: Fahad Das Chemical Laboratory Chief: Andrew Arreguin Chemical Laboratory Chief: The statistical assistant, Andrew Arreguin, PAC was needed for his expertise under the microscope. He was important and necessary throughout the procedure to complete in a safe and timely manner. He assisted with patient positioning prepping and draping tissue retraction suctioning of the operative field protection of the dural sac and tissue closure Estimated blood loss (mL): 2,000 Procedure: 1. T10- S1 instrumentation 2. Lumbopelvic instrumentation 3. T10 - pelvis fusion 4. L2/3 Lamincetomy with partial facetectomy 5. L3/4 laminectomy with partial facetectomy 6. L4/5 Laminectomy with partial facetectomy 7. L5/S1 laminectomy with partial facetectomy 8. use of computer navigation/ stereotactic for spine 9. bone marrow aspirated from iliac crest on the right 10. use of allograft 11. Use of autograf Patient is brought to the operative suite. After undergoing anesthesia, the patient had neuro monitoring attached. Patient was then placed in the prone position on the Lennox table. All areas of impingement were well-padded. Patient was then prepped and draped in the normal sterile fashion. Skin incision was then made over the T10 down to the sacrum. Subperiosteal disse ction was made out to the transverse processes of T10 and L5 as well as the sacral ala. And dissection was made past the S1 foramen. The Azubu bone marrow aspirate kit was used to aspirate bone marrow aspirate. This was done by using the sharp probe to open up the bone. Aspiration was performed and then the blunt probe was then used to dissect down to through the bone tunnel. An aspirating well drawn back a millimeter approximately 20 cc of bone marrow aspirate was used. Admixed with the allograft and autograft bone that will be used. Was brought to placing the fiducial for the computer navigation. 2 pins were placed into the right iliac wing. These pins will later be removed at the end of the case. The fiducial was turndown C-arm was brought in and information from serum was then loaded the computer in order to facilitate placing screws under computer navigation. The technique for placing the pedicle screws was to use a drill followed by the gearshift probe linked to computer navigation Followed by the ball probe to feel the superior inferior medial lateral moreno of the pedicles. Then placement of the screws under computer navigation. Was done at each pedicle. Screws were placed at [id number], T11 bilaterally, T12 bilaterally, L1 bilaterally, L2 bilaterally, L3 bilaterally, L4 bilaterally, L5 bilaterally, and into S1 bilaterally. Extension was placed on placing the iliac screws. This was done using the sacral ala iliac technique. This was done also under computer navigation. The gearshift was passed through the sacrum through the ala and into the iliac wing across the iliosacral joint. This was done bilaterally. Gearshift was linked to the computer navigation. Pedicle feeler was then used to make sure that the gearshift was in the columns of the iliac wings. Next a tap was used again under computer navigation and then the 90 mm 8.5 screws were placed bilaterally. And these were placed into the iliac wings. Attention was brought to performing the laminectomy ofL2. This was done using the high-speed bur Kerrisons and curettes. Once the lamina was removed and then attention was brought to performing a partial facetectomy on the contralateral side. This was done again using the high-speed bur curettes and Kerrisons. The ligamentum flavum was taken down bilaterally where it could be however there was significant mount of scar tissue From L2 to L3. Attention was then brought to the facet on the ipsilateral side. The facet was taken down. The L3 nerve was decompressed as it passed around the L3 pedicle. Attention was brought to performing the laminectomy ofL3. This was done using the high-speed bur Kerrisons and curettes. Once the lamina was removed and then attention was brought to performing a partial facetectomy on the contralateral side. This was done again using the high-speed bur curettes and Kerrisons. The ligamentum flavum was taken down bilaterally where it could be however there was significant mount of scar tissue From L3 to L4. Attention was then brought to the facet on the ipsilateral side. The facet was taken down. The L4 nerve was decompressed as it passed around the L4 pedicle. Attention was brought to performing the laminectomy ofL4. This was done using the high-speed bur Kerrisons and curettes. Once the lamina was removed and then attention was brought to performing a partial facetectomy on the contralateral side. This was done again using the high-speed bur curettes and Kerrisons. The ligamentum flavum was taken down bilaterally where it could be however there was significant mount of scar tissue From L4 to L5. Attention was then brought to the facet on the ipsilateral side. The facet was taken down. The L5 nerve was decompressed as it passed around the L5 pedicle. Attention was brought to performing the laminectomy ofL5. This was done using the high-speed bur Kerrisons and curettes. Once the lamina was removed and then attention was brought to performing a partial facetectomy on the contralateral side. This was done again using the high-speed bur curettes and Kerrisons. The ligamentum flavum was taken down bilaterally where it could be however there was significant mount of scar tissue From L5 to S1. Attention was then brought to the facet on the ipsilateral side. The facet was taken down. The S1 nerve was decompressed as it passed around the S1 pedicle. Attention was then brought to attaching the rods to the screws placed in the T10 down to S1 as well as to the iliac screws. Caps were torqued into position. Locking the construct in place. Wound was copiously irrigated and then attention was brought to decorticating the facets and transverse processes laterally. Bone that was taken down from the lamina was used along with osteoamp fibers and sponges were packed into the lateral gutters along the facet joints. This was done bilaterally. Wound was then closed in a layered fashion starting with the thoracolumbar fasci a. 0-vicryl was used the sub cutaneous tissue was closed with 2-0 vicryl and skin with 4-0 monocryl. Glue was then used to seal the skin and a steril dressing was applied. Patient was then placed in the supine position. The endotracheal tube was removed and patient was transferred to the PACU in stable condition.
[2021-09-08 13:36] LABS: Basophils % 0.3 %; Hematocrit 33.9 % (37.0-47.0); Hemoglobin 11.2 g/dL (11.5-15.3); Lymphocytes # 0.9 10^3/uL (0.8-4.8); Lymphocytes % 6.5 %; Mean Corpuscular Volume 90.9 fl (81-99); Monocytes # 0.2 10^3/uL (0.2-0.9); Monocytes % 1.8 %; Neutrophils # 12.06 10^3/uL (1.8-7.7); Neutrophils % 90.5 %; Nucleated Red Blood Cells % 0 %; Platelet Count 169 10^3/cmm (130-400); Red Blood Count 3.73 10^6/uL (4.1-5.3); Red Cell Distribution Width 13.7 % (12.1-15.1); White Blood Count 13.3 10^3/uL (4.0-10.0)
[2021-09-08] MEDS: lactated ringers 1,000 ML 90 ML IV (15:08)
--- NOTE | 2021-09-08 16:30 | ANE.PACU2 ---
Inpatient post-anesthesia follow up: Airway intact: Yes Vital signs: Temperature 97.5 F Pulse Rate 76 Respiratory Rate 18 Blood Pressure 92/54 Pulse Oximetry 100 Oxygen Delivery Me thod Nasal Cannula Oxygen Flow Rate 3 Fraction of Inspir ed Oxygen Hydration adequate: Yes Pain level: 4 Mental status: Baseline
[2021-09-08 17:27] LABS: Glucose Point of Care 182 mg/dL (70-110)
[2021-09-08] MEDS: docusate sodium 100 mg Capsule PO (17:59)
[2021-09-08] MEDS: potassium chloride ER 20 mEq Tablet PO (17:59)
[2021-09-08] MEDS: HYDROcodone-acetaminophen 5-325 mg Tablet PO (17:59)
[2021-09-08] MEDS: ondansetron 2 mg/ML SDV 2 mL 4 MG IVP (19:34)
[2021-09-08] MEDS: ketorolac 30 mg/mL INJ IVP (22:41)
[2021-09-09] VITALS (7 sets, daily range): BP systolic 99–112; BP diastolic 62–73; PULSE 68–99; RESP 15–17; TEMP 36.3–36.6; O2SAT 92–98
[2021-09-09] MEDS: lactated ringers 1,000 ML 90 ML IV ×3 (02:04→23:22)
[2021-09-09] MEDS: HYDROcodone-acetaminophen 5-325 mg Tablet PO ×4 (02:13→16:55)
[2021-09-09 04:27] LABS: Hematocrit 29.4 % (37.0-47.0); Hemoglobin 9.7 g/dL (11.5-15.3)
[2021-09-09] MEDS: pantoprazole DR 40 mg Tablet PO (06:08)
[2021-09-09] MEDS: FUROsemide 40 mg Tablet PO (06:08)
[2021-09-09] MEDS: amlodipine 5 mg Tablet PO (06:08)
[2021-09-09] MEDS: potassium chloride ER 20 mEq Tablet PO ×2 (08:01→16:53)
[2021-09-09] MEDS: ascorbic acid 500 mg Tablet PO (08:01)
[2021-09-09] MEDS: docusate sodium 100 mg Capsule PO ×2 (08:01→16:53)
--- NOTE | 2021-09-09 08:10 | P.PN_ITS ---
Subjective Subjective: POD 1 Patient mobilizing in the halls. States her leg pain has improved. She denies any headaches, shortness of breath or chest pain. She lives by herself in a cabin and has dogs and other animals to care for. Vitals/I&O/Wt Last Vital Signs Temp 97.8 F 09/09/21 04:42 Pulse 71 09/09/21 07:08 Resp 15 09/09/21 07:08 BP 112/73 09/09/21 04:42 Pulse Ox 94 09/09/21 07:08 09/08/21 09/09/21 09/09/21 22:59 06:59 14:59 Intake Total 50 / 4450 1034 / 5484 Output Total 675 / 2920 1075 / 3995 Balance -625 / 1530 -41 / 1489 Physical Exam Narrative: Patient presents alert and oriented x3 with a good general appearance normal mood and affect. Normal coordination normal stability. Mild tenderness around the incisional site with the incision appear to be clean and dry. Hemovac drain intact. No signs of erythema or drainage. No signs of infection. Patient denies any fevers or chills. 4/5 motor strength both lower extremities with negative straight leg raise bilaterally. Calves are supple no medial thigh tenderness. Pulses are 2+ at the dorsalis pedis and posterior tibial region. Good capillary refill throughout normal sensation light touch lisa th lower extremities. Urinary Catheter Management: Valera: Cath Placed During This Visit: yes Reason for Continuing Indwelling Catheter: Other Urinary Catheter Date of Insertion: 09/08/21 Urinary Catheter Time of Insertion: 07:35 Data : 09/09/21 03:44 09/08/21 06:31 A&P Assessment and plan (1) S/P spinal fusion: Physical therapy to continue to mobilize during her hospitalization. We will consult high school social studies tutor for placement. Discontinue Valera catheter but will maintain Hemovac drain until tomorrow. Encourage incentive spirometry for pulmonary toilet. Advance diet as tolerated. Patient will need a walker for discharge. Status: Acute (2) Acute blood loss anemia: Status: Acute Attestations Medical Necessity Statement*: Plan to discharge tomorrow or when placement is established. Coding Level of Care Code Acute Ordnance Engineer for [facility] F[facility] Diagnoses S/P spinal fusion Z98.1 Acute blood loss anemia D62
--- NOTE | 2021-09-09 10:51 | PC.CHAP ---
Pastoral Care Encounter/Spiritual Assessment Type of Contact [] Declined yacht hand visit [] Patient/Family/Request visit [] Outpatient visit [] Follow-up visit [] Physician referral [] Code/Alert [x] Routine visit [] Staff referral [] Actively dying [] Patient sleeping [] Family support [] [] Out of room [] Palliative care [] [x] Receiving care in room [] Pre-surgical visit [] Trauma [] Long length of stay [] ICU visit [] Other: Relational/Emotional Strength [x] Patient feels connected with others/family/visitors/staff [] Distress [] Loneliness/isolation [] Abandonment Spirituality of Patient [x] Person of Preethi [] Attends Advent of their Preethi [x] Believes in Prayer [] Reads Bible or Worship materials [] There are Spiritual issues to be addressed Claims Auditor Interventions [x] Prayer [x] Active listening [x] Non-anxious presence [x] Spiritual/emotional support [] Crisis/trauma care [x] Spiritual counseling [] Bereavement support [] Provided bereavement packet [] Provided Bible/devotional materials [] Provided toy/stuffed animal, coloring book to patient or family member [] Provided Communion [] Anointing/Lasara [] Salvation [x] Completed spiritual assessment [] Other: Impact on Illness or Injury [] Angry [] Fearful [] Anxious [] Often cries [] Exhaustion [] Unable to work [] Unable to attend anabaptist [] Unable to walk/stand [] Unable to read [] Unable to drive [] Unable to eat/drink [] Unable to sleep [] Unable to be with family [] Patient intubated [] Other: Summary feeling better check up ans is going home Time spent with patient 10 mins
[2021-09-09] MEDS: lanolin oint 7 gm 1 APPLIC TOPICAL (14:00)
[2021-09-09] MEDS: ketorolac 30 mg/mL INJ IVP (19:33)
[2021-09-10] VITALS (8 sets, daily range): BP systolic 90–120; BP diastolic 59–79; PULSE 64–93; RESP 14–19; TEMP 36.4–38; O2SAT 90–98
[2021-09-10 03:16] LABS: Hematocrit 24.5 % (37.0-47.0); Hemoglobin 7.8 g/dL (11.5-15.3)
[2021-09-10] MEDS: FUROsemide 40 mg Tablet PO (06:29)
[2021-09-10] MEDS: pantoprazole DR 40 mg Tablet PO (06:29)
[2021-09-10] MEDS: HYDROcodone-acetaminophen 5-325 mg Tablet PO ×3 (06:30→23:36)
--- NOTE | 2021-09-10 06:47 | PM.PN ---
Subjective Subjective: POD 2 Patient mobilizing with a walker. Reports mild back pain legs much better. Based on the patient's living conditions very difficult for her to be discharged home. She denies any chest pain, shortness of breath or dizziness. Denies any lightheadedness. Vitals/I&O/Wt Last Vital Signs Temp 97.9 F 09/10/21 04:00 Pulse 64 09/10/21 04:00 Resp 17 09/10/21 04:00 BP 102/63 09/10/21 04:00 Pulse Ox 90 09/10/21 04:00 09/09/21 09/09/21 09/10/21 14:59 22:59 06:59 Intake Total 1560.5 / 1560.5 240 / 1800.5 1000 / 2800.5 Output Total 925 / 925 125 / 1050 200 / 1250 Balance 635.5 / 635.5 115 / 750.5 800 / 1550.5 Physical Exam Narrative: Patient presents alert and oriented x3 with a good general appearance normal mood and affect.? Normal coordination normal stability.? Mild tenderness around the incisional site with the incision appear to be clean and dry.? Hemovac drain intact.? No signs of erythema or drainage.? No signs of infection.? Patient denies any fevers or chills.? 5/5 motor strength both lower extremities with negative straight leg raise bilaterally.? Calves are supple no medial thigh tenderness.? Pulses are 2+ at the dorsalis pedis and posterior tibial region.? Good capillary refill throughout normal sensation light touch both lower extremities. Urinary Catheter Management: Valera: Cath Placed During This Visit: yes, but has since been removed by the nurse Reason for Continuing Indwelling Catheter: Decision to DC Catheter Urinary Catheter Date of Insertion: 09/08/21 Urinary Catheter Time of Insertion: 07:35 Date Urinary Catheter Removed: 09/09/21 Time Urinary Catheter Discontinued: 10:00 Data : 09/10/21 03:00 09/08/21 06:31 A&P Assessment and plan (1) Acute blood loss anemia: Continue with physical therapy. We will have Hemovac drain discontinued. Continue incentive spirometry for pulmonary toilet. Continue to work with manager social for placement and is ready for discharge when that placement is found. Discussed with the nurse to work with laxative of choice to help with bowel movement. 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
[2021-09-10] MEDS: ketorolac 30 mg/mL INJ IVP (08:25)
[2021-09-10] MEDS: ascorbic acid 500 mg Tablet PO (08:25)
[2021-09-10] MEDS: potassium chloride ER 20 mEq Tablet PO ×2 (08:26→17:18)
[2021-09-10] MEDS: docusate sodium 100 mg Capsule PO ×2 (08:26→17:18)
[2021-09-10] MEDS: lactated ringers 1,000 ML 30 ML IV (15:35)
[2021-09-10] MEDS: ondansetron 2 mg/ML SDV 2 mL 4 MG IVP (23:34)
[2021-09-11 03:41] VITALS: BP 124/75; PULSE 91; RESP 16; TEMP 37.2; O2SAT 93
[2021-09-11] MEDS: pantoprazole DR 40 mg Tablet PO (05:07)
[2021-09-11] MEDS: HYDROcodone-acetaminophen 5-325 mg Tablet PO ×3 (05:07→18:04)
[2021-09-11] MEDS: FUROsemide 40 mg Tablet PO (05:07)
[2021-09-11] MEDS: amlodipine 5 mg Tablet PO (05:07)
[2021-09-11 07:38] VITALS: BP 119/76; PULSE 88; RESP 18; TEMP 37.5; O2SAT 92
[2021-09-11 07:55] VITALS: PULSE 89; RESP 16; O2SAT 97
[2021-09-11] MEDS: ascorbic acid 500 mg Tablet PO (09:52)
[2021-09-11] MEDS: potassium chloride ER 20 mEq Tablet PO ×2 (09:52→18:03)
[2021-09-11] MEDS: docusate sodium 100 mg Capsule PO ×2 (09:52→18:02)
--- NOTE | 2021-09-11 10:48 | PC.SOCIAL ---
IMM update IMM updated with patient. Verbalized an understanding. Copy Pg 2 provided. Initialled, dated, timed, and placed in chart.
[2021-09-11 11:50] VITALS: BP 115/74; PULSE 73; RESP 16; TEMP 36.8; O2SAT 97
--- NOTE | 2021-09-11 13:04 | P.PN_ITS ---
Subjective Subjective: Patient is doing well. Pain is well controlled. Vitals/I&O/Wt Last Vital Signs Temp 98.2 F 09/11/21 11:50 Pulse 73 09/11/21 11:50 Resp 16 09/11/21 11:50 BP 115/74 09/11/21 11:50 Pulse Ox 97 09/11/21 11:50 09/10/21 09/11/21 09/11/21 22:59 06:59 14:59 Intake Total 240 / 270 120 / 390 240 / 240 Balance 240 / 270 120 / 390 240 / 240 Physical Exam Narrative: Patient has been ambulating well with physical therapy. Urinary Catheter Management: Valera: Cath Placed During This Visit: yes, but has since been removed by the nurse Reason for Continuing Indwelling Catheter: Decision to DC Catheter Urinary Catheter Date of Insertion: 09/08/21 Urinary Catheter Time of Insertion: 07:35 Date Urinary Catheter Removed: 09/09/21 Time Urinary Catheter Discontinued: 10:00 Data : 09/10/21 03:00 09/08/21 06:31 A&P Assessment and plan (1) S/P spinal fusion: Stopped IV. We will recheck an H&H. Discharge planning. Patient can be discharged home however her trailer is not safe at this point for her to go home. Her daughter does have trailer next-door which is a possibility however daughter is out of town. At this point were also attempting to get her into a jail. Status: Acute Attestations Medical Necessity Statement*: Patient needs a safe environment to be discharged to attempting to go to jail versus home with the daughter. Coding Level of Care Code Acute Licensed Mortgage Loan Officer for [employer] Fwd Diagnoses S/P spinal fusion Z98.1
[2021-09-11 14:19] LABS: Hematocrit 25.7 % (37.0-47.0); Hemoglobin 7.9 g/dL (11.5-15.3)
[2021-09-11 16:00] VITALS: BP 102/68; PULSE 73; RESP 16; TEMP 36.6; O2SAT 96
[2021-09-11 20:00] VITALS: BP 113/72; PULSE 81; RESP 17; TEMP 36.9; O2SAT 91
[2021-09-12] VITALS (8 sets, daily range): BP systolic 100–119; BP diastolic 61–78; PULSE 66–83; RESP 15–17; TEMP 36.6–37.1; O2SAT 91–97
[2021-09-12] MEDS: pantoprazole DR 40 mg Tablet PO (06:18)
[2021-09-12] MEDS: amlodipine 5 mg Tablet PO (06:18)
[2021-09-12] MEDS: FUROsemide 40 mg Tablet PO (06:19)
[2021-09-12] MEDS: HYDROcodone-acetaminophen 5-325 mg Tablet PO (06:20)
[2021-09-12] MEDS: ondansetron 2 mg/ML SDV 2 mL 4 MG IVP ×2 (06:21→18:47)
[2021-09-12] MEDS: ascorbic acid 500 mg Tablet PO (09:08)
[2021-09-12] MEDS: magnesium hydroxide 30 mL UDC PO ×2 (09:08→18:54)
[2021-09-12] MEDS: docusate sodium 100 mg Capsule PO ×2 (09:08→18:47)
[2021-09-12] MEDS: potassium chloride ER 20 mEq Tablet PO ×2 (09:09→18:47)
--- NOTE | 2021-09-12 13:47 | PM.PN ---
Subjective Subjective: Patient is feeling little nauseous this afternoon. She did get up with therapy did well with therapy earlier today. Vitals/I&O/Wt Last Vital Signs Temp 98.4 F 09/12/21 12:00 Pulse 77 09/12/21 12:00 Resp 16 09/12/21 12:00 BP 100/61 09/12/21 12:00 Pulse Ox 95 09/12/21 12:00 09/11/21 09/12/21 09/12/21 22:59 06:59 14:59 Intake Total 360 / 600 120 / 720 100 / 100 Output Total 200 / 200 Balance 360 / 600 -80 / 520 100 / 100 Physical Exam Narrative: Patient was asleep when I walked in the room. She is resting comfortably in bed does feel nauseous. Lunch is by the bedside however because of her nauseousness she has not been eating. Urinary Catheter Management: Valera: Cath Placed During This Visit: yes, but has since been removed by the nurse Reason for Continuing Indwelling Catheter: Decision to DC Catheter Urinary Catheter Date of Insertion: 09/08/21 Urinary Catheter Time of Insertion: 07:35 Date Urinary Catheter Removed: 09/09/21 Time Urinary Catheter Discontinued: 10:00 Data : 09/11/21 13:20 09/08/21 06:31 A&P Assessment and plan (1) S/P spinal fusion: Patient is little nauseous today otherwise doing well plan at this point will be to discharge her tomorrow either to a residential or home. Physical therapy feels like she is stable enough to go home. Spine make sure she has everything she needs at home. Hemoglobin is stabilizing. Status: Acute Attestations Medical Necessity Statement*: Needs a safe place to go for discharge. Coding Level of Care Code Acute Associate Professor Of Radiology for g Fwd Diagnoses S/P spinal fusion Z98.1
[2021-09-12] MEDS: ketorolac 30 mg/mL INJ IVP (18:46)
[2021-09-13] VITALS: BP 107/69; PULSE 72; RESP 16; TEMP 36.6; O2SAT 92
[2021-09-13 04:00] VITALS: BP 125/74; PULSE 77; RESP 17; TEMP 36.3; O2SAT 94
[2021-09-13] MEDS: FUROsemide 40 mg Tablet PO (05:10)
[2021-09-13] MEDS: amlodipine 5 mg Tablet PO (05:10)
[2021-09-13] MEDS: pantoprazole DR 40 mg Tablet PO (05:10)
[2021-09-13] MEDS: magnesium hydroxide 30 mL UDC PO (05:12)
--- NOTE | 2021-09-13 07:06 | PM.PN ---
Subjective Subjective: POD 5 Patient resting comfortably leg pain has significantly improved. Vitals/I&O/Wt Last Vital Signs Temp 97.4 F L 09/13/21 04:00 Pulse 77 09/13/21 04:00 Resp 17 09/13/21 04:00 BP 125/74 09/13/21 04:00 Pulse Ox 94 09/13/21 04:00 09/12/21 09/13/21 09/13/21 22:59 06:59 14:59 Intake Total 480 / 580 Output Total 400 / 400 400 / 800 Balance 80 / 180 -400 / -220 Physical Exam Narrative: Patient presents alert and oriented x3 with a good general appearance normal mood and affect. Normal coordination normal stability. Mild tenderness around the incisional site with the incision appear to be healing nicely. No signs of erythema or drainage. No signs of infection. Patient denies any fevers or chills. 5/5 motor strength both lower extremities with negative straight leg raise bilaterally. Calves are supple no medial thigh tenderness. Pulses are 2+ at the dorsalis pedis and posterior tibial region. Good capillary refill throughout normal sensation light touch both lower extremities. Urinary Catheter Management: Valera: Cath Placed During This Visit: yes, but has since been removed by the nurse Reason for Continuing Indwelling Catheter: Decision to DC Catheter Urinary Catheter Date of Insertion: 09/08/21 Urinary Catheter Time of Insertion: 07:35 Date Urinary Catheter Removed: 09/09/21 Time Urinary Catheter Discontinued: 10:00 Data : 09/11/21 13:20 09/08/21 06:31 A&P Assessment and plan (1) S/P spinal fusion: Physical therapy to get patient is walking very well does not seem to qualify for nursing facility we will set her up for home health care and transition home today. I have her follow-up in the office in 1 week for wound check. Status: Acute Attestations Medical Necessity Statement*: home today Coding Level of Care Code Acute Fraud Analyst for [employer] Diagnoses S/P spinal fusion Z98.1
--- NOTE | 2021-09-13 07:24 | PC.NURSE ---
Bedside report received from SUSANNA Perry.
[2021-09-13 08:00] VITALS: BP 109/67; PULSE 86; RESP 14; TEMP 36.7; O2SAT 100
[2021-09-13] MEDS: potassium chloride ER 20 mEq Tablet PO (08:28)
[2021-09-13] MEDS: docusate sodium 100 mg Capsule PO (08:28)
[2021-09-13] MEDS: HYDROcodone-acetaminophen 5-325 mg Tablet PO (08:28)
[2021-09-13] MEDS: ascorbic acid 500 mg Tablet PO (08:28)
[2021-09-13 09:00] VITALS: PULSE 78; RESP 16; O2SAT 95
--- NOTE | 2021-09-13 10:53 | PC.NURSE ---
Addendum entered by Janna Wang RN 09/13/21 10:54: IMM IMM given to pt with patient verbalizing understanding. All questions answered. Second page initialed, dated, and timed in chart. Original Note: IMM IMM given to pt with patient verbalizing understanding. Spouse at bedside. All questions answered. Second page initialed, dated, and timed in chart.
[2021-09-13 11:48] VITALS: BP 108/72; PULSE 74; RESP 15; TEMP 36.7; O2SAT 94
--- NOTE | 2021-09-14 16:07 | PM.DCS ---
Discharge Providers Date of Admission: 09/08/21 12:47 Date of Discharge: September 13, 2021 Attending Provider at Admission: Fahad Das DO Attending Provider at Discharge: Fahad Das DO Primary Care Provider: ISIDRO Chatman Diagnoses at Discharge Discharge Diagnosis (1) S/P spinal fusion: Status: Acute Reason for Visit Reason for Visit: FUSION [id number] PLIF L5-S1 W/ DECOMPRESSION L1-S Hospital Course Hospital Course uneventful Physical Exam Urinary Catheter Management: Valera: Cath Placed During This Visit: yes, but has since been removed by the nurse Reason for Continuing Indwelling Catheter: Decision to DC Catheter Urinary Catheter Date of Insertion: 09/08/21 Urinary Catheter Time of Insertion: 07:35 Date Urinary Catheter Removed: 09/09/21 Time Urinary Catheter Discontinued: 10:00 Discharge Data Studies Completed and Pending Completed Studies During Hospitalization Category Date Time Status XR lumbar spine 1V [id number] Routine Exams 09/08/21 Completed Radiology Impressions Lumbar Spine X-Ray 09/08/21 00:00 Impression: Posterior thoracolumbar sacral fusion Laboratory Results WBC 13.3 10^3/uL (4.0-10.0) H 09/08/21 13:25 RBC 3.73 10^6/uL (4.1-5.3) L 09/08/21 13:25 Hgb 7.9 g/dL (11.5-15.3) L 09/11/21 13:20 Hct 25.7 % (37.0-47.0) L 09/11/21 13:20 MCV 90.9 fl (81-99) 09/08/21 13:25 MCH 30.0 pg (28.0-34.0) 09/08/21 13:25 MCHC 33.0 g/dL (30.0-36.0) 09/08/21 13:25 RDW 13.7 % (12.1-15.1) 09/08/21 13:25 Plt Count 169 10^3/cmm (130-400) 09/08/21 13:25 MPV 12.0 fL (7.4-10.4) H 09/08/21 13:25 Neut % (Auto) 90.5 % 09/08/21 13:25 Lymph % (Auto) 6.5 % 09/08/21 13:25 [place] % (Auto) 1.8 % 09/08/21 13:25 Eos % (Auto) 0.0 % 09/08/21 13:25 Baso % (Auto) 0.3 % 09/08/21 13:25 Neut # (Auto) 12.06 10^3/uL (1.8-7.7) H 09/08/21 13:25 Lymph # (Auto) 0.9 10^3/uL (0.8-4.8) 09/08/21 13:25 [place] # (Auto) 0.2 10^3/uL (0.2-0.9) 09/08/21 13:25 Eos # (Auto) 0.0 10^3/uL (0.0-0.8) 09/08/21 13:25 Baso # (Auto) 0.0 10^3/uL (0.0-0.1) 09/08/21 13:25 Nucleated RBC % (auto) 0 % 09/08/21 13:25 Total Counted 100 (0-100) 09/08/21 07:40 Atypical Lymphs % Not Reportable 09/08/21 07:40 Absolute Neutrophils 3.3 10^3/cmm (1.4-6.5) 09/08/21 07:40 Segmented Neutrophils 57 % 09/08/21 07:40 Abs Segm Neuts (Man) 3.2 10/cmm (1.6-7.1) 09/08/21 07:40 Band Neutrophils 2.0 % 09/08/21 07:40 Abs Band Neuts (Man) 0.1 10^3/cmm (0.0-1.2) 09/08/21 07:40 Lymphocytes (Manual) 36 % 09/08/21 07:40 Monocytes (Manual) 3.0 % 09/08/21 07:40 Absolute Monocytes 0.2 10^3/cmm (0.1-0.6) 09/08/21 07:40 Eosinophils (Manual) 2 % 09/08/21 07:40 Absolute Eosinophils 0.1 10^3/cmm (0.0-0.7) 09/08/21 07:40 Basophils (Manual) Not Reportable 09/08/21 07:40 Nucleated RBCs # 0.0 /100WBC 09/08/21 13:25 Platelet Estimate Decreased (Normal) L 09/08/21 07:40 Sodium 137 mmol/L (136-145) 09/08/21 06:31 Potassium 4.3 mmol/L (3.5-5.1) 09/08/21 06:31 Chloride 102 mmol/L (98-107) 09/08/21 06:31 Carbon Dioxide 24 mmol/L (22-29) 09/08/21 06:31 Anion Gap 15.3 (5-19) 09/08/21 06:31 BUN 18 mg/dL (8-23) 09/08/21 06:31 Creatinine 0.8 mg/dL (0.5-0.9) 09/08/21 06:31 GFR Calculation Not Reportable 09/08/21 06:31 Glucose 96 mg/dL (65-115) 09/08/21 06:31 POC Glucose 182 mg/dL (70-110) H 09/08/21 17:09 Calculated Osmolality 286 mOsm/kg (285-295) 09/08/21 06:31 Calcium 9.3 mg/dL (8.5-10.5) 09/08/21 06:31 Blood Type O Positive 09/08/21 07:40 Rho(D) Type Positive 09/08/21 07:40 Antibody Screen Negative 09/08/21 07:40 Crossmatch See Detail 09/08/21 07:40 Vitals Last Vital Signs Temp 98.1 F 09/13/21 11:48 Pulse 74 09/13/21 11:48 Resp 15 09/13/21 11:48 BP 108/72 09/13/21 11:48 Pulse Ox 94 09/13/21 11:48 Discharge Plan Discharge Patient Disposition: Home Condition: Stable Prescriptions: New hydrocodone-acetaminophen 5-325 mg Tablet 1 - 2 tab PO Q4H PRN (Reason: Moderate To Severe Pain) Qty: 40 0RF Continued ascorbic acid (vitamin C) 500 mg tablet 500 mg PO DAILY 0RF albuterol sulfate [ProAir HFA] 90 mcg/actuation HFA aerosol inhaler 2 puff INHALATION Q4H PRN (Reason: Shortness Of Breath) 0RF (DME) Bone Growth Stimulator E0748 See Rx Instructions .Route .MEDSUPPLY Qty: 1 0RF Rx Instructions: As directed furosemide [Lasix] 40 mg Tablet 40 mg PO QAM 0RF amlodipine 5 mg tablet 5 mg PO QAM 0RF potassium chloride 20 mEq tablet,ER particles/crystals 20 meq PO BID 0RF pantoprazole 40 mg tablet,delayed release (DR/EC) 40 mg PO QAM 0RF vitamin B complex 1 dose PO DAILY 0RF Discharge Orders: Discharge Order (Routine); Ordered 09/13/21 Ordered By: Andrew Arreguin Other Ambulatory Orders: DME: Walker (Order) Location: None Selected Ordered By: Fahad Das Referrals: [facility] [place] Home Care ([facility]) [Outside] Fahad Das, DO [Physician] - 1 week () Discharge Diet: Advance as tolerated Discharge Activity: Increase activity as tolerated Patient Instructions: Hydrocodone/Acetaminophen (By mouth) (Vicodin, [place], Lortab), Lumbar Spinal Fusion (DC), Opioid Safety Activity Restrictions/Additional Instructions: Thank you for choosing [facility] for your care! The following is a list of instructions, from your provider, to follow upon your discharge to ensure you have the optimal recovery from your recent injury or surgery. Follow-up care is a bonilla part of your treatment and safety. Be sure to make and go to all appointments and call your doctor if you are having problems. If you do not already have a follow-up appointment made, call Dr. Das's] office in the next 1-3 days to make follow up appointment for 1 weeks at [phone]. It is also a good idea to know your test results and keep a list of the medicines you take. Medications will be prescribed for you at your provider's discretion. These medications are to be used as instructed; if they are taken more often that prescribed they will not be refilled early and in most cases will not be refilled at all. > When a refill is needed, you should contact sherrill magaña 2-3 business days before your prescription runs out. Medications will NOT be refilled by provider contracting consultant providers after hours! > Many pain medications contain Tylenol (Acetaminophen). Do not consume more than 4,000 mg of Tylenol per day in total with any combination of medications. > Pain medications can cause constipation. Please use an over the counter stool softener as directed, while taking pain medications. Consult your local pharmacist with questions or recommendations on stool softeners. If constipation persists, contact our office or your primary care provider. > While under our care, you are not to receive pain medications or other controlled substances from any other provider unless our office is notified and approves. Any attempts to do so will result in refusal to prescribe any further pain medications and possible dismissal from our practice. ? Walking is essential for the healing process after surgery. We would like you to slowly advance your walking. This should be done on relatively flat clear ground (inside or out) or can be done on a treadmill. Remember this goal does not have to happen all at once, slowly increase your distance and duration. This can be broken into more more than one walk per day as tolerated. Patients who walk as directed after surgery rarely require Physical Therapy. In the unlikely event this issue arises your provider will direct hospital staff to make the appropriate arrangements. ? No lifting over 5 pounds {a gallon of milk) or bending/twisting until further notice. Each of these activities places an unnecessary amount of stress onto the body and can impede the delicate healing process. > Instead of bending at the waist, keep your back straight and bend at the knees. > Instead of twisting your torso, keep your back straight and turn your entire body with your feet. ? You may sleep in any position which makes you comfortable. Many patients find comfort sleeping in a reclining chair. It is not abnormal to have difficulty sleeping for the first several weeks following your surgery. We recommend trying Benadry! or Tylenol PM as directed to help with your sleeping difficulties. Both medications are over the counter and available without prescription. ? NO SMOKING!!! Smoking dramatically increases the probability of developing postoperative wound infections. ? Common complaints after lumbar and/or thoracic spine surgery include, but are not limited to: numbness and/or tingling in the legs, pain around the incision and surrounding tissues, muscle spasms, or stiffness of the middle to low back. Contact our office if these symptoms persist or if an acute change occurs. ? No driving for the first 3-5days, and not while taking narcotics until seen at your follow-up appointment and cleared. There are no restrictions for riding on short trips, however if you take a longer trip, arrangements should be made to make regular stops to get out of the vehicle and stretch . ? Swelling is an unfortunate event that will take place with any surgery and is the primary source of your postoperative discomfort. While walking and regular approved activities helps control inflammation, there are additional steps you can take to minimize swelling. > Place ice over the surgical site and surrounding tissue for twenty minutes, followed by applying a low/medium heat (heating pad) for an additional twenty minutes every 1-2 hours as needed for painrelief. > You may use of over the counter anti-inflammatory medications (Ibuprofen, Motrin, Aleve, Advil, etc) as directed on the package label. These types of medicines will significantly reduce the amount of discomfort you experience after surgery from swelling. It should be noted that if you have and allergy to any of these medications, or a history of ulcers or kidney disease you should consult you primary care provider prior to starting these medications. Discharge Attestations Time Spent in Discharge Care*: less than 30 min Quality Metrics Clinical Quality Measures [ No reported AMI, CVA or VTE this stay] Coding Level of Care Code Acute Chg FW DC note Diagnoses S/P spinal fusion Z98.1
== END 2021-09-13 14:30 | disposition home health service (06) | DRG 458 ==
LOC: MEDSURG 12:47
PROVIDERS: Anesthesiology; Admitting Provider Orthopaedic Surgery; PCP Nurse Practitioner Family; Visit Provider Orthopaedic Surgery
PROC: 0RG707J Fusion of 2 to 7 Thoracic Vertebral Joints with Autologous Tissue Substitute, Posterior Approach, Anterior Column, Open Approach (ICD-10-PCS; CPT 22612; principal; 2021-09-08 07:00)
PROC: 0RG707J Fusion of 2 to 7 Thoracic Vertebral Joints with Autologous Tissue Substitute, Posterior Approach, Anterior Column, Open Approach (ICD-10-PCS; CPT 63005; 2021-09-08 07:00)
DX: M48.062 Spinal stenosis, lumbar region with neurogenic claudication (principal); M51.36 Other intervertebral disc degeneration, lumbar region; M96.1 Postlaminectomy syndrome, not elsewhere classified; Z98.1 Arthrodesis status; Z87.891 Personal history of nicotine dependence
CPT/HCPCS: 36415; 36416; 36592; 51702; 72020; 76000; 80048; 82962; 85007; 85014; 85018; 85025; 85027; 86850; 86900; 86920; 93005; 97110; 97116; 97162; 97530; C1713; J0330; J0690; J1100; J1644; J1885; J2370; J2405; J2704; J2710; J3010; J3370; J3490; J7030; P9016; P9041

== ENCOUNTER → 2021-09-16 10:30 | Outpatient (BNVA) | payer MEDICARE, MEDICAID, SELFPAY | PROVIDERS: PCP Nurse Practitioner Family; Visit Provider Physician Assistant | DX: Z47.89 Encounter for other orthopedic aftercare (principal); Z98.890 Other specified postprocedural states; Z98.1 Arthrodesis status | CPT/HCPCS: 72100; 99024 ==

== ENCOUNTER → 2021-09-23 10:16 | Outpatient (BNVA) | payer MEDICARE, MEDICAID, SELFPAY | PROVIDERS: PCP Nurse Practitioner Family; Visit Provider Physician Assistant | DX: Z47.89 Encounter for other orthopedic aftercare (principal); Z98.890 Other specified postprocedural states; Z98.1 Arthrodesis status | CPT/HCPCS: 72100; 99024 ==

== ENCOUNTER → 2021-10-14 10:52 | Outpatient (BNVA) | payer MEDICARE, MEDICAID, SELFPAY | PROVIDERS: PCP Nurse Practitioner Family; Visit Provider Physician Assistant | DX: Z47.89 Encounter for other orthopedic aftercare (principal); Z98.1 Arthrodesis status | CPT/HCPCS: 72100; 99024 ==

== ENCOUNTER → 2021-11-25 11:34 | Outpatient (BNVA) | payer MEDICARE, MEDICAID, SELFPAY | PROVIDERS: PCP Nurse Practitioner Family; Visit Provider Physician Assistant | DX: Z47.89 Encounter for other orthopedic aftercare (principal); Z98.1 Arthrodesis status | CPT/HCPCS: 72100; 99024 ==

== ENCOUNTER 2022-02-03 10:30 | Emergency (ER) | payer MEDICARE, MEDICAID, SELFPAY ==
[2022-02-03 11:03] VITALS: BP 135/81; PULSE 90; RESP 15; TEMP 36.7; O2SAT 92; BMI 28.1
--- NOTE | 2022-02-03 12:16 | XRR_ITS ---
PROCEDURE INFORMATION: Exam: XR Cervical Spine Exam date and time: 02/03/2022 12:29 PM Age: 76 years old Clinical indication: Neck pain. Prior cervical fusion. TECHNIQUE: Imaging protocol: Radiologic exam of the cervical spine. Views: 2 or 3 views. COMPARISON: CR XR cervical spine 3V* [id number] 05/18/2021 3:02 PM FINDINGS: Bones/joints: There has been prior ventral cervical fusion extending from C3-C5. The vertebra appear densely fused. The atlantoaxial interval and craniocervical junction are unremarkable. No acute fracture is seen. No hardware complication is seen. Soft tissues: No prevertebral soft tissue swelling. Lungs: There is a nodule in the left lung measuring 5.7 mm. This could represent a granuloma. Remote examinations are not available for comparison at time of dictation. Recommend comparison to remote priors to confirm stability of this nodule. Consider CT if clinically warranted. XR/XR cervical spine 3V* [id number] IMPRESSION: 1. There has been prior ventral cervical fusion extending from C3-C5. The vertebra appear densely fused. No acute hardware complication is seen. No acute fracture. 2. There is a nodule in the left lung measuring 5.7 mm. This could represent a granuloma. Remote examinations are not available for comparison at time of dictation. Recommend comparison to remote priors to confirm stability of this nodule. Consider CT if clinically warranted.
--- NOTE | 2022-02-03 13:06 | ED_ITS ---
HPI - Neck Pain/Injury General: Chief Complaint: Neck Pain/Injury Stated Complaint: NECK PAIN FOR 1 WEEK Time Seen by Provider: 02/03/22 12:07 History of Present Illness: Patient is in today for neck pain. She reports that she fell 2 to 3 weeks ago and thinks she hit the back of her neck on the chicken coop. She reports since that time she has had significant neck pain worse on the left side posterior neck. Patient states that she has not taken anything for this because her dogs had knocked over her Tylenol and Motrin and she just ended up sleeping that up into the trash. She reports that she cannot move her neck without hurting tremendously. She does offer that she has had a previous complete fusion of the cervical spine. Associated symptoms: Denies difficulty walking or headache(s) Review of Systems Const: Denies: fever(s), chills or body aches Card: Denies: chest pain, palpitations or irregular heart rhythm Resp: Reports: productive cough (Patient does have chronic productive cough per her); Denies: dyspnea Neuro: Denies: headache(s), numbness in extremities, weakness in extremities, sensory changes, lack of coordination or difficulty walking PFS ED PFSH: Medical History Postlaminectomy syndrome, cervical region Spondylolisthesis, lumbar region Surgical History History of fusion of cervical spine 08/03/2005 C5-C6, C6-C7 ACDFF History of knee replacement Date of Procedure: 11/29/2016 Procedure: Left total knee arthroplasty utilizing the following components: The [employer] triathlon Total Knee System with a Size 4 Triathlon Posterior Stabilized Left Cemented Femur and a Size 4 Triathlon [place] Tibial Baseplate Cemented with a Size 4 x 13 Mm Posterior Stabilized X3 Insert and Asymmetric 32 x 10 mm Patella Postlaminectomy syndrome, lumbar region 08/10/2015 Dr. Julia Luis. Bilateral L2-L3 laminotomy/foraminotomy, with limited medial facetectomy 05/11/2009 left L5-S1 hemilaminotomy/discectomy/foraminotomy, reexploration. Family History Mother Heart disease Father Heart disease Social History Smoking and tobacco status: former smoker Alcohol intake: former Household members: spouse Marital status: Current occupational status: retired and disabled History of recent travel: No Physical Exam Const: COMMON NORMALS: patient oriented x3 and alert OTHER: Patient grimaces anytime she makes movement with her head or neck. She is pleasant and cooperative. Neck/C-Spine: OTHER: There is tenderness to palpation posterior neck more on the left cervical paraspinal musculature and at the base of the skull. There is tenderness to palpation Cervical spine C2-C4. No step-offs appreciated. Palpation of the paraspinal musculature elicits more pain and reproduces pain complaint. Limited range of motion, but patient has had previous cervical spine fusion Resp: COMMON NORMALS: normal respiratory effort and No use of accessory muscles Neuro: COMMON NORMALS: patient oriented x3 SENSORIUM/ORIENTATION: Yes alert Course Vital Signs: Vital signs: Vital Signs Temperature 98.0 F 02/03/22 11:03 Pulse Rate 90 02/03/22 11:03 Respiratory Rate 15 02/03/22 11:03 Blood Pressure 135/81 02/03/22 11:03 Pulse Oximetry 92 02/03/22 11:03 Oxygen Delivery Me thod 02/03/22 11:03 MDM - Neck Pain/Injury Medical Decision Making Consider fracture, cervical strain, muscle spasm, contusion. X-ray cervical spine shows there has been prior ventral cervical fusion extending from C3-C5 the vertebra appear densely fused no acute hardware complication seen no acute fracture. There is a nodule in the left lung measuring 5.7 mm could represent a granuloma remote examinations are not available for comparison at the time of dictation. Recommend comparison to remote priors consider CT if clinically warranted. I did discuss this with patient and she is not aware of lung nodule. I did advise her that I recommend follow-up with primary care provider for continued evaluation and monitoring of this. Treat patient with 1 dose of Motrin and muscle relaxant today. Discussed conservative care for muscle spasm. Follow-up with primary care provider as needed. Return to ER for new or worsening symptoms. Lab Data Radiology Impressions Cervical Spine X-Ray 02/03/22 12:16 IMPRESSION: 1. There has been prior ventral cervical fusion extending from C3-C5. The vertebra appear densely fused. No acute hardware complication is seen. No acute fracture. 2. There is a nodule in the left lung measuring 5.7 mm. This could represent a granuloma. Remote examinations are not available for comparison at time of dictation. Recommend comparison to remote priors to confirm stability of this nodule. Consider CT if clinically warranted. Discharge Plan Discharge Patient Disposition: Home Clinical Impression: Strain of neck muscle, Incidental lung nodule Condition: Stable Prescriptions: New baclofen 10 mg tablet 10 mg PO Q8H PRN (Reason: muscle spasm) Qty: 9 0RF No Action ascorbic acid (vitamin C) 500 mg tablet 500 mg PO DAILY albuterol sulfate [ProAir HFA] 90 mcg/actuation HFA aerosol inhaler 2 puff INHALATION Q4H PRN (Reason: Shortness Of Breath) (DME) Bone Growth Stimulator E0748 See Rx Instructions .Route .MEDSUPPLY Qty: 1 0RF Rx Instructions: As directed hydrocodone-acetaminophen 5-325 mg tablet 1 - 2 tab PO Q4H PRN (Reason: Moderate To Severe Pain) 5 Days Qty: 40 0RF furosemide [Lasix] 40 mg Tablet 40 mg PO QAM amlodipine 5 mg tablet 5 mg PO QAM potassium chloride 20 mEq tablet,ER particles/crystals 20 meq PO BID pantoprazole 40 mg tablet,delayed release (DR/EC) 40 mg PO QAM vitamin B complex 1 dose PO DAILY Discharge Orders: Discharge ED (Routine); Ordered 02/03/22 Ordered By: Janna Anglin Referrals: Lelia Hackett FNP [Primary Care Provider] - Discharge Diet: Usual diet Discharge Activity: Increase activity as tolerated Patient Instructions: Baclofen (By mouth), Muscle Spasm (ED) Activity Restrictions/Additional Instructions: Use the baclofen as needed as directed for muscle spasming. Be careful because baclofen can make you extremely sleepy and unsteady. Do not drive after taking this medication. Do not take anything else that makes you sleepy with this medication. You may take Tylenol [id number] to help with pain. Warm moist compresses to the area can also help relieve spasm. Follow-up with your primary care provider regarding incidental finding of lung nodule today. Primary care can manage ongoing evaluation/monitoring/treatment as they deem necessary. Return to the ER as needed for any new or worsening symptoms. Coding Level of Care Code ED Battalion Chief for Chg Fwd Exam Expanded Problem Focused
[2022-02-03] MEDS: baclofen 10 mg Tablet PO (13:12)
[2022-02-03] MEDS: ibuprofen 600 mg Tablet PO (13:12)
== END 2022-02-03 14:30 | disposition home or self-care (01) ==
PROVIDERS: Emergency Provider Nurse Practitioner Family; PCP Nurse Practitioner Family
DX: S16.1XXA Strain of muscle, fascia and tendon at neck level, initial encounter (principal); R91.1 Solitary pulmonary nodule; Z87.891 Personal history of nicotine dependence; W19.XXXA Unspecified fall, initial encounter
CPT/HCPCS: 72040; 99283

== ENCOUNTER → 2022-03-24 10:18 | Outpatient (BNVA) | payer MEDICARE, MEDICAID, SELFPAY | PROVIDERS: PCP Nurse Practitioner Family; Visit Provider Physician Assistant | DX: Z98.1 Arthrodesis status (principal) | CPT/HCPCS: 72100; 99213 ==

== ENCOUNTER → 2022-10-27 14:09 | Outpatient (BNVA) | payer MEDICARE, MEDICAID, SELFPAY | PROVIDERS: PCP Nurse Practitioner Family; Visit Provider Physician Assistant | DX: Z98.1 Arthrodesis status (principal); Z98.890 Other specified postprocedural states | CPT/HCPCS: 72100; 99213 ==

== ENCOUNTER → 2022-11-03 13:56 | Outpatient (BNVA) | payer MEDICARE, MEDICAID, SELFPAY | PROVIDERS: PCP Nurse Practitioner Family; Visit Provider Physician Assistant | DX: M50.322 Other cervical disc degeneration at C5-C6 level; M47.812 Spondylosis without myelopathy or radiculopathy, cervical region; Z98.1 Arthrodesis status; M47.22 Other spondylosis with radiculopathy, cervical region | CPT/HCPCS: 72050; 99214 ==

== ENCOUNTER 2023-02-09 15:58 | Emergency (ER) | payer MEDICARE, MEDICAID, SELFPAY ==
--- NOTE | 2023-02-09 16:07 | XRR_ITS ---
PROCEDURE INFORMATION: Exam: XR Right Knee Exam date and time: 02/09/2023 5:20 PM Age: 77 years old Clinical indication: Injury or trauma; Fall; Other: Unknown TECHNIQUE: Imaging protocol: Radiologic exam of the right knee. Views: 3 views. COMPARISON: No relevant prior studies available. FINDINGS: Bones/joints: The alignment of the joints is anatomic. The joint spaces are maintained. There is no evidence of acute fracture. There is no evidence of a joint effusion. Soft tissues: No radiopaque foreign body. XR/XR knee RT 3V* [id number] IMPRESSION: Unremarkable radiographic appearance of the right the knee.
--- NOTE | 2023-02-09 16:07 | XRR_ITS ---
PROCEDURE INFORMATION: Exam: XR Right Hip Exam date and time: 02/09/2023 5:20 PM Age: 77 years old Clinical indication: Injury or trauma; Fall; Other: Unknown TECHNIQUE: Imaging protocol: Radiologic exam of the right hip. Views: 1 view hip with pelvis when performed. COMPARISON: CR XR hip BI m 5V wo/w pel* [id number] 07/23/2020 12:56 PM FINDINGS: Bones/joints: No acute fracture or dislocation. The SI joints appear normal. There are mild degenerative changes of the symphysis pubis. There is a however posterior fusion of all levels visualized in the lumbar spine with screws extending through the sacroiliac joints bilaterally. Additionally, the lateral bony fusion. Soft tissues: No radiopaque foreign bodies. XR/XR hip RT 2-3V wo/w pel* [id number] IMPRESSION: 1. No acute fracture or dislocation. 2. Postoperative changes of the spine as described above.
--- NOTE | 2023-02-09 16:07 | XRR_ITS ---
PROCEDURE INFORMATION: Exam: XR Right Hand Exam date and time: 02/09/2023 5:20 PM Age: 77 years old Clinical indication: Injury or trauma; Fall; Other: Unknown TECHNIQUE: Imaging protocol: Radiologic exam of the right hand. Views: 3 or more views. COMPARISON: No relevant prior studies available. FINDINGS: Bones/joints: The alignment of the joints is anatomic. There is narrowing and sclerosis of the distal and proximal interphalangeal joints. Marginal osteophytes are present. There is sparing of the 1st carpometacarpal joint. There is no evidence of acute fracture. Soft tissues: No radiopaque foreign body is identified. XR/XR hand RT min 3V* [id number] IMPRESSION: 1. No acute fracture or dislocation. 2. Changes of the interphalangeal joints are consistent with osteoarthritis or psoriatic arthritis.
[2023-02-09 16:10] VITALS: BP 127/75; PULSE 79; TEMP 36.8; O2SAT 95; BMI 24.0
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
[2023-02-09 16:40] LABS: Basophils # 0.1 10^3/uL (0.0-0.1); Basophils % 1.3 %; Eosinophils # 0.2 10^3/uL (0.0-0.8); Eosinophils % 1.9 %; Hematocrit 30.5 % (36-47); Lymphocytes # 2.1 10^3/uL (0.8-4.8); Lymphocytes % 27.6 %; Mean Corpuscular HGB Conc 28.2 g/dL (30-55); Mean Corpuscular Hemoglobin 22.3 pg (27-33); Mean Corpuscular Volume 79.2 fl (85-98); Mean Platelet Volume 10.8 fL (7.4-10.4); Monocytes # 0.7 10^3/uL (0.2-0.9); Monocytes % 8.9 %; Neutrophils # 4.64 10^3/uL (1.8-7.7); Nucleated Red Blood Cells % 0 %; Platelet Count 369 10^3/cmm (157-399); Red Blood Count 3.85 10^6/uL (3.85-5.65); Red Cell Distribution Width 18.7 % (12.1-15.1); White Blood Count 7.74 10^3/uL (3.29-11.43)
[2023-02-09 16:54] LABS: Alanine Aminotransferase 14 U/L (0-33); Alkaline Phosphatase 116 U/L (35-105); Anion Gap 14.4 (5-19); Aspartate Amino Transferase 19 U/L (0-32); Carbon Dioxide 25 mmol/L (22-29); Chloride 104 mmol/L (98-107); Globulin 3.2 g/dL (1.3-4.6); Glucose 110 mg/dL (65-115); Potassium 4.4 mmol/L (3.5-5.1); Sodium 139 mmol/L (136-145); Total Bilirubin 0.2 mg/dL (0.15-1.2); Total Protein 7.2 g/dL (6.6-8.7)
[2023-02-09 17:21] LABS: Blood Urea Nitrogen 19 mg/dL (8-23); Calcium 9.5 mg/dL (8.5-10.5); Osmolality Calculated 291 mOsm/kg (285-295)
[2023-02-09] MEDS: sodium chloride 0.9% 1,000 ML 999 ML IV (17:32)
--- NOTE | 2023-02-09 18:11 | DCPLANNER ---
Message was sent to ortho on 02/09/23 at 6890. Clinic to contact patient for appt
== END 2023-02-09 18:48 | disposition home or self-care (01) ==
PROVIDERS: Emergency Provider Emergency Medicine; PCP Nurse Practitioner Family
DX: S62.652A Nondisplaced fracture of middle phalanx of right middle finger, initial encounter for closed fracture (principal); Z87.891 Personal history of nicotine dependence; W19.XXXA Unspecified fall, initial encounter
CPT/HCPCS: 73130; 73502; 73562; 80053; 85025; 99284; J7030

== ENCOUNTER 2023-03-17 11:56 | Outpatient (CLI) | payer MEDICARE, MEDICAID, SELFPAY ==
--- NOTE | 2023-03-17 12:08 | USCV_ITS ---
Guadalupe Mcneill Age: 77 Gender: F : 1945 Exam Date: 03/17/2023 12:36 Ordering Phys: Lelia Hackett SPECIAL NEEDS CAREGIVER Technologist: Shena See Exam Location: [facility] [place] Indication: MURMUR BP: 142 / 82 HR: 67 Rhythm: Sinus Technical Quality: Adequate MEASUREMENTS (Male / Female) Normal Values 2D ECHO LVOT Diameter 2.0 cm LV Ejection Fraction MOD 2C 56.9 % LV Ejection Fraction 2C AL 59.1 % LA Diameter 3.7 cm LA Width 4.1 cm LA Height 3.8 cm RA Width 3.7 cm RA Height 4.4 cm Aorta at Sinotubular Diameter 2.7 cm IVC Diameter 1.8 cm M-MODE Aortic Annulus Diameter 2.3 cm LA Ao Ratio MM 1.6 MV E Point Septal Separation 0.5 cm DOPPLER AV Peak Velocity 198.3 cm/s LVOT Peak Velocity 111.0 cm/s AV Area Cont Eq vti 1.8 cm squared AV Area Cont Eq pk 1.7 cm squared MV Peak Velocity 129.0 cm/s MV Area PHT 4.0 cm squared Mitral E to A Ratio 1.0 MV E' Velocity 54.0 cm/s Mitral E to MV E' Ratio 11.6 Mitral E to LV E' Lateral Ratio 9.9 Mitral E to LV E' Septal Ratio 14.1 TR Peak Velocity 285.9 cm/s TR Peak Gradient 32.7 mmHg TR Mean Velocity 241.5 cm/s TR Mean Gradient 24.3 mmHg TR Velocity Time Integral 103.6 cm TV Peak E Velocity 62.0 cm/s Right Atrial Pressure 3.0 mmHg Pulmonary Artery Systolic Pressu 35.7 mmHg PV Peak Velocity 132.0 cm/s RV Acceleration Time 0.1 s RV Ejection Time 0.3 s RV AcT/ET 0.2 FINDINGS Left Ventricle Left ventricle is normal in size. LV systolic function is normal with EF of 55 to 60%. No regional wall motion abnormalities are seen. Right Ventricle Normal in size and function Right Atrium Normal in size Left Atrium Normal in size Mitral Valve Structurally normal mitral valve. Mild mitral regurgitation. Aortic Valve Aortic valve is thickened. Mild aortic stenosis with aortic valve area of 1.72 cm squared and mean gradient of 9.5 mmHg. Tricuspid Valve Mild tricuspid regurgitation. RVSP is 35-40mmHg. This is consistent with mild pulmonary hypertension Pulmonic Valve Not well visualized. Mild pulmonic regurgitation. Pericardium Normal Aorta Normal in size IVC Appears to be normal CONCLUSIONS LV systolic function is normal with EF 55 to 60%. Mild mitral regurgitation. Mild aortic stenosis Mild tricuspid regurgitation. Mild pulmonary hypertension Mild pulmonic regurgitation No comparison studies are available. Vini Johnston MD (Electronically Signed) Final Date: 30 March 2023 17:14 S
== END 2023-03-17 11:57 | disposition home or self-care (01) ==
LOC: RAD 11:57
PROVIDERS: PCP Nurse Practitioner Family; Visit Provider Nurse Practitioner Family
DX: I08.8 Other rheumatic multiple valve diseases (principal)
CPT/HCPCS: 93306

== ENCOUNTER → 2023-03-30 14:12 | Outpatient (BNVA) | payer MEDICARE, MEDICAID, SELFPAY | PROVIDERS: PCP Nurse Practitioner Family; Referring Provider Nurse Practitioner Family; Visit Provider Internal Medicine Pulmonary Disease | DX: J44.9 Chronic obstructive pulmonary disease, unspecified (principal); I35.0 Nonrheumatic aortic (valve) stenosis; Z87.891 Personal history of nicotine dependence; D50.9 Iron deficiency anemia, unspecified; I27.20 Pulmonary hypertension, unspecified; Z12.2 Encounter for screening for malignant neoplasm of respiratory organs; K44.9 Diaphragmatic hernia without obstruction or gangrene; R01.1 Cardiac murmur, unspecified; R06.09 Other forms of dyspnea | CPT/HCPCS: 99204 ==

== ENCOUNTER → 2023-05-16 14:48 | Outpatient (BNVA) | payer MEDICAID, SELFPAY | PROVIDERS: PCP Nurse Practitioner Family; Visit Provider Internal Medicine Cardiovascular Disease | DX: R07.9 Chest pain, unspecified (principal); I35.0 Nonrheumatic aortic (valve) stenosis; I48.0 Paroxysmal atrial fibrillation; I10 Essential (primary) hypertension; J44.9 Chronic obstructive pulmonary disease, unspecified; D50.0 Iron deficiency anemia secondary to blood loss (chronic); Z87.891 Personal history of nicotine dependence; R94.31 Abnormal electrocardiogram [ECG] [EKG] | CPT/HCPCS: 93005; 99204; 99214 ==

== ENCOUNTER 2023-07-14 08:51 | Outpatient (CLI) | payer OTHER, MEDICAID, SELFPAY ==
[2023-07-14 09:19] VITALS: BMI 24.7
--- NOTE | 2023-07-14 09:20 | NMCV_ITS ---
NM yoli perf SPECT r/s* [id number] Guadalupe Mcneill Age: 77 Gender: F : 1945 Exam Date: 07/14/2023 10:02 Ordering Phys: Roseann Alexander MD ([email or web address]) Technologist: MARC Lora Exam Location: [facility] Indications: CORONARY ANGIOPLASTY STATUS STRESS TEST Please see separate stress test report in [facility] for full findings IMAGE PROTOCOL Rest/Stress 1 Lexiscan Day Radiopharmaceutical Dose (mCi) Administration Site Administered by Rest: Tc-99m 10.6 IV MARC Vigil Sestamibi Stress:Tc-99m 32.2 IV MARC Vigil Sestamibi Rest: 14-Jul-2023 60 Discovery 630 Stress: 14-Jul-2023 30 Discovery 630 0.4mg Lexiscan. Supine position only as patient was unable to lay prone. SPECT RESULTS Technical Quality: Excellent Raw Data Analysis: Normal Image Corrections: No attenuation or motion correction applied Summed Stress Score: 0 Summed Rest Score: 3 Summed Difference Score: 0 PERFUSION FINDINGS Patchy areas of slightly decreased tracer uptake were noted in the anteroseptal and basal inferior wall regions. No significant reversibility was noted in these regions. FUNCTIONAL RESULTS (calculated via Gated SPECT) Stress Image LV EF (%): 79 Stress EDV (mL):103 TID: 1.39 Stress ESV (mL):22 FUNCTIONAL FINDINGS: Segmental wall motion analysis revealing no gross wall motion abnormalities IMPRESSIONS 1. Patchy areas of persistent decreased tracer uptake involving the anteroseptal and inferior wall regions suggesting myocardial scarring versus attenuation artifact 2. Normal LV ejection fraction 79%. 3. LV wall motion analysis revealing no gross wall motion abnormalities. 4. Normal LV volume 5. Elevated transient ischemic dilatation ratio may suggest endocardial ischemia. However in the absence of any other abnormal objective findings, the reliability of the findings is questionable. Clinical correlation is recommended . Dr Roseann Alexander MD FACC (Electronically Signed) Final Date: 14 Jul 2023 14:22 S
--- NOTE | 2023-07-14 09:20 | ECG_ITS ---
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 Interpretive Statements NAME OF STUDY: LEXISCAN SESTAMIBI STRESS TEST INDICATION: Chest Pain; A fib PROCEDURE: At the baseline, the EKG revealed normal sinus rhythm with a poor R wave progression. Diffuse nonspecific T wave changes. Low voltage complexes in the precordial leads.. The baseline heart was 68 bpm with a blood pressue of 125/67 mm of Hg Lexiscan was infused over a period of 20 seconds. A total of 0.4 milligrams of Lexiscan was infused. The stress phase was continued for a total of 5 minutes. Heart rate at the end of the stress phase was 71 bpm with a blood pressure 105/64 mm of Hg. The EKG at the peak infusion revealed no significant changes. Sestamibi was injected 20 seconds after the Lexiscan infusion. Heart rate at the end of the recovery phase was 71 bpm with a blood pressure of 130/67 mm of Hg. CONCLUSION: 1. No significant EKG changes with the LexiScan infusion 2. No LexiScan induced chest pain or cardiac arrhythmia 3. Normal blood pressure and heart rate response 4. Sestamibi/sestamibi perfusion scan pending; see separate report. Electronically Signed On 07-15-2023 18:27:50 CDT by Roseann Alexander M.D. [email or web address]
[2023-07-14] MEDS: regadenoson 0.4 Mg/5 ml Syringe 0.400000000000000022 MG IVP (11:05)
[2023-07-14 11:42] VITALS: BP 143/68; PULSE 72
== END 2023-07-14 08:52 | disposition home or self-care (01) ==
PROVIDERS: PCP Nurse Practitioner Family; Visit Provider Internal Medicine Cardiovascular Disease
DX: R07.9 Chest pain, unspecified (principal); I48.91 Unspecified atrial fibrillation
CPT/HCPCS: 36415; 78452; 93017; 96374; A9500; J2785

== ENCOUNTER → 2023-07-25 13:01 | Outpatient (BNVA) | payer OTHER, MEDICAID, SELFPAY | PROVIDERS: PCP Nurse Practitioner Family; Visit Provider Internal Medicine Pulmonary Disease | DX: J44.9 Chronic obstructive pulmonary disease, unspecified (principal); I35.0 Nonrheumatic aortic (valve) stenosis; Z12.2 Encounter for screening for malignant neoplasm of respiratory organs; R06.81 Apnea, not elsewhere classified | CPT/HCPCS: 99214 ==

== ENCOUNTER → 2023-08-03 14:25 | Outpatient (BNVA) | payer OTHER, MEDICAID, SELFPAY | PROVIDERS: PCP Nurse Practitioner Family; Visit Provider Orthopaedic Surgery | DX: Z98.1 Arthrodesis status (principal); M43.16 Spondylolisthesis, lumbar region; M54.50 Low back pain, unspecified | CPT/HCPCS: 72100; 99214 ==

== ENCOUNTER 2023-08-10 11:54 | Outpatient (CLI) | payer OTHER, MEDICAID, SELFPAY | END 2023-08-10 11:55 | disposition home or self-care (01) | PROVIDERS: PCP Nurse Practitioner Family; Visit Provider Internal Medicine Pulmonary Disease | DX: R06.81 Apnea, not elsewhere classified (principal); J44.9 Chronic obstructive pulmonary disease, unspecified | CPT/HCPCS: 94010; 94618; 94726; 94729 ==

== ENCOUNTER → 2023-08-15 14:03 | Outpatient (BNVA) | payer OTHER, MEDICAID, SELFPAY | PROVIDERS: PCP Nurse Practitioner Family; Visit Provider Internal Medicine Cardiovascular Disease | DX: R07.89 Other chest pain (principal); I48.0 Paroxysmal atrial fibrillation; I35.0 Nonrheumatic aortic (valve) stenosis; I10 Essential (primary) hypertension; I65.22 Occlusion and stenosis of left carotid artery; Z87.891 Personal history of nicotine dependence | CPT/HCPCS: 99214 ==

== ENCOUNTER 2023-08-16 20:56 | Emergency (ER) | payer OTHER, MEDICAID, SELFPAY ==
[2023-08-16 21:02] VITALS: BP 133/86; PULSE 88; RESP 16; TEMP 37.4; O2SAT 97
--- NOTE | 2023-08-16 21:11 | ED_ITS ---
HPI - Extremity Problem General: Chief complaint: Extremity Injury, Upper Stated complaint: fall, left arm pain Time Seen by Provider: 08/16/23 21:11 History of Present Illness: 77-year-old female comes in for evaluati on of injury to the left upper arm. Patient was walking her dogs yesterday when her arm was suddenly pulled by the dog's causing a popping sensation in the upper anterior arm. Patient reports that she has had normal movement of the arm except some increased pain and discomfort. Patient did have 1 episode where she was holding something and accidentally dropped today feeling like she got weak in the hand. Patient has full sensation in the extremity and normal range of motion. Review of Systems General: Reports: 10 or more systems reviewed and unremarkable except in HPI and below Musc: Reports: extremity pain PFSH ED PFSH: Medical History Gastro-esophageal reflux disease with esophagitis Postlaminectomy syndrome, cervical region Spondylolisthesis, lumbar region Surgical History Postlaminectomy syndrome, lumbar region 08/10/2015 Dr. Julia Luis. Bilateral L2-L3 laminotomy/foraminotomy, with limited medial facetectomy 05/11/2009 left L5-S1 hemilaminotomy/discectomy/foraminotomy, reexploration. History of fusion of cervical spine 08/03/2005 C5-C6, C6-C7 ACDFF History of knee replacement Date of Procedure: 11/29/2016 Procedure: Left total knee arthroplasty utilizing the following components: The [employer] triathlon Total Knee System with a Size 4 Triathlon Posterior Stabilized Left Cemented Femur and a Size 4 Triathlon [place] Tibial Baseplate Cemented with a Size 4 x 13 Mm Posterior Stabilized X3 Insert and Asymmetric 32 x 10 mm Patella Family History Mother Heart disease Hyperthyroidism Father Heart disease CAD (coronary artery disease) Diabetes Brother Aneurysm Atrial fibrillation Diabetes Hypertension Hyperthyroidism Sudden cardiac Other Anemia Stroke Denies family history of Congestive heart failure (CHF) Arrhythmia TIA (transient ischemic attack) Hyperlipidemia Chronic kidney disease (CKD) Peripheral vascular disease Congenital heart disease Carotid artery disease Pulmonary embolism Cardiomyopathy Social History Smoking and tobacco/nicotine status: former use of tobacco/nicotine Quit status (tobacco/nicotine): has quit using Year quit tobacco: 2000 Former quit date comment: 2 ppd X 40 years Alcohol intake: former Substance/Drug Use: never Household members: spouse Marital status: Current occupational status: retired and disabled Physical Exam Const: COMMON NORMALS: alert HENMT: COMMON NORMALS: normocephalic HEAD & SCALP: normocephalic Neck/C-Spine: COMMON NORMALS: full ROM Resp: COMMON NORMALS: normal respiratory effort Cardio: COMMON NORMALS: regular rate RATE: regular rate Extremity: COMMON NORMALS: full ROM NARRATIVE EXTREMITY EXAM: Bruising noted to the left upper arm at the distal part of the biceps. Patient has normal range of motion of the elbow. Distal pulses and sensation are intact. Neuro: SENSORIUM/ORIENTATION: Yes alert Skin: COMMON NORMALS: turgor normal GENERAL SKIN EXAM: turgor normal Course Vital Signs: Vital signs: Vital Signs Temperature 99.4 F 08/16/23 21:02 Pulse Rate 88 08/16/23 21:02 Respiratory Rate 16 08/16/23 21:02 Blood Pressure 133/86 08/16/23 21:02 Pulse Oximetry 97 08/16/23 21:02 Oxygen Delivery Me thod Room Air 08/16/23 21:02 MDM - Extremity (Nontraumatic) Medical Decision Making 77-year-old female comes in today for complaints of injury to the left upper arm. On exam patient has some bruising noted to the anterior upper left arm. Minimal swelling is noted. Tenderness is noted to palpation. Distal pulses and sensation are intact. Patient has normal range of motion of the extremity. Differential diagnosis includes contusion, biceps tendon rupture, hematoma. Most likely patient has a biceps tendon rupture due to the description of her injury being a pulling sensation. Recommend light activity and follow-up with investor relations specialist for further evaluation and treatment. Patient reports understanding and agreed to plan. No radiology studies performed this visit Discharge Plan Discharge Patient Disposition: Home Clinical Impression: Biceps tendon rupture Qualifiers: Encounter type: initial encounter Laterality: left Qualified Code(s): S46.212A - Strain of muscle, fascia and tendon of other parts of biceps, left arm, initial encounter Condition: Stable Prescriptions: No Action albuterol sulfate 2.5 mg /3 mL (0.083 %) solution for nebulization 2.5 mg inhalation QID PRN (Reason: shortness of breath or wheezing) Qty: 180 3RF isosorbide mononitrate 30 mg tablet extended release 24 hr 30 mg PO DAILY Qty: 30 5RF prednisone 20 mg tablet 20 mg PO DAILY Qty: 15 0RF Rx Instructions: 60Mg for 3 days, 40MG for 2 days, 20MG for 2 days (DME) Bone Growth Stimulator E0748 See Rx Instructions .Route .MEDSUPPLY Qty: 1 0RF Rx Instructions: As directed hydrocodone-acetaminophen 5-325 mg tablet 1 - 2 tab PO Q4H PRN (Reason: Moderate To Severe Pain) 5 Days Qty: 40 0RF furosemide [Lasix] 40 mg Tablet 40 mg PO QAM amlodipine 5 mg tablet 5 mg PO QAM potassium chloride 20 mEq tablet,ER particles/crystals 20 meq PO BID pantoprazole 40 mg tablet,delayed release (DR/EC) 40 mg PO QAM Discharge Orders: Discharge ED (Routine); Ordered 08/16/23 Ordered By: Josh Gomez Referrals: Lelia Hackett FNP [Primary Care Provider] - Discharge Diet: Usual diet Discharge Activity: Increase activity as tolerated Patient Instructions: Tendon Rupture (ED) Activity Restrictions/Additional Instructions: Light activity until swelling and bruising resolves. Then increase activity as tolerated. Follow-up with investor relations specialist for further evaluation and treatment. Coding Level of Care Code ED Thumb Sewer for Navjot Ruiz
[2023-08-16 21:44] VITALS: PULSE 78; RESP 15; O2SAT 99
--- NOTE | 2023-08-17 07:12 | DCPLANNER ---
message sent to ortho for er f/u
== END 2023-08-16 21:44 | disposition home or self-care (01) ==
PROVIDERS: Emergency Provider Nurse Practitioner Family; PCP Nurse Practitioner Family
DX: S46.212A Strain of muscle, fascia and tendon of other parts of biceps, left arm, initial encounter (principal); Z87.891 Personal history of nicotine dependence; X50.9XXA Other and unspecified overexertion or strenuous movements or postures, initial encounter
CPT/HCPCS: 99281

== ENCOUNTER 2023-09-01 13:47 | Outpatient (CLI) | payer OTHER, MEDICAID, SELFPAY ==
--- NOTE | 2023-09-01 14:00 | CT_ITS ---
WS: [id number] CT lumbar spine wo/w con [id number] REASON FOR EXAM: Back Pain IV CONTRAST ADMINISTERED: None. TOTAL EXAM DLP: 360.[address] scans at [facility] use at least one of these dose optimization techniques: automat ed exposure control; mA and/or kV adjustment per patient size (includes targeted exams where dose is matched to clinical indication); or iterative reconstruction. FINDINGS: Decreased bone density. Posterior decompression S1-T10. Oblique pelvic screws at S2. Pedicle screws from S1-T10. Interconnecting rods pelvis to T10. Artifact from the hardware significantly limits the evaluation of the spinal canal and contents of th e thecal sac. Lateral bony fusion L2-S1. No vertebral body compression fracture. Mild narrowing of the intervertebral disc space L2-L3 and L3-L4. Moderate narrowing of the disc space at L4-L5 and L5-S1. No significant central or foraminal bone-based stenosis. Within the spinal canal or thecal sac. CT/CT lumbar spine wo/w con [id number] IMPRESSION: Decreased bone density. Posterior lumbar fusion pelvis to T10. No compression fracture. No other focal abnormality identified.
[2023-09-05] MEDS: iohexol 350 mg/mL 500 mL Btl (per mL) IV (15:53)
== END 2023-09-01 13:48 | disposition home or self-care (01) ==
PROVIDERS: PCP Nurse Practitioner Family; Visit Provider Orthopaedic Surgery
DX: M54.9 Dorsalgia, unspecified (principal); M85.9 Disorder of bone density and structure, unspecified; M43.26 Fusion of spine, lumbar region
CPT/HCPCS: 72133

== ENCOUNTER 2023-09-12 14:13 | Outpatient (CLI) | payer OTHER, MEDICAID, SELFPAY ==
--- NOTE | 2023-09-12 14:16 | USCV_ITS ---
Guadalupe Mcneill Age: 77 Gender: F : 1945 Exam Date: 09/12/2023 14:29 Ordering Phys: Roseann Alexander MD ([email or web address]) Technologist: DUSTY [place] [facility] [place]ication: BRUIT Risk Factors: Previous Vascular Surgery: Right Brachial BP: / Left Brachial BP: / Right Left Velocity (cm/s) Spectral Plaque Velocity (cm/s) Spectral Plaque Syst/Diast Broadening Syst/Diast Broadening 78.90/ 23.20 Prox CCA 63.10 / 23.00 65.90/ 25.80 Mid CCA 47.20 / 17.80 60.80/ 24.50 Distal CCA 49.80 / 17.60 44.50/ 16.20 Prox ICA 49.20 / 19.40 37.60/ 16.50 Mid ICA 56.60 / 21.30 38.30/ 12.60 Distal ICA 47.30 / 22.20 56.60 ECA 78.30 0.70 ICA/CCA 1.10 Antegrade Vertebral Antegrade 49.40/ 16.40 cm/s 38.00/ 17.20 cm/s Tri Subclavian Tri 37.50 78.00 FINDINGS Minimal plaque to the bifurcations bilaterally Minimal intimal thickening in the internal carotid and common carotid arteries bilaterally. Normal Doppler flow velocities bilaterally Antegrade flow in the vertebral arteries bilaterally CONCLUSIONS 1. Minimal plaques at the bifurcations bilaterally, suggesting less than 50% stenosis 2. No unstable plaques or lesions 3. No significant stenosis in the external carotid, vertebral or subclavian arteries, based on the above findings Dr Roseann Alexander MD [facility] (Electronically Signed) Final Date: 15 September 2023 21:12 S
== END 2023-09-12 14:14 | disposition home or self-care (01) ==
LOC: RAD 14:13
PROVIDERS: PCP Nurse Practitioner Family; Visit Provider Internal Medicine Cardiovascular Disease
DX: I65.23 Occlusion and stenosis of bilateral carotid arteries (principal)
CPT/HCPCS: 93880

== ENCOUNTER → 2023-09-26 14:15 | Outpatient (BNVA) | payer OTHER, MEDICAID, SELFPAY | PROVIDERS: PCP Nurse Practitioner Family; Visit Provider Physician Assistant | DX: M19.012 Primary osteoarthritis, left shoulder (principal) | CPT/HCPCS: 73030; 99203 ==

== ENCOUNTER 2023-10-05 16:30 | Oncology outpatient (recurring) (ONCR) | payer OTHER, MEDICAID, SELFPAY ==
--- NOTE | 2023-10-04 13:00 | MR_ITS ---
WS: [id number] MRI LEFT ELBOW WITHOUT CONTRAST. COMPARISON: None Multiplanar, multisequence imaging is performed without contrast. Biceps tendon is identified along the anterior lower humerus. Biceps tendon is followed to the radial tuberosity. There is no signal abnormality or fluid around the biceps tendon. There is also no hemat gabi within the muscle belly. There is a very subtle area of increased T2 signal within the brachialis muscle at its insertion site to the anterior tuberosity of the coronoid process. There is a small amount of fluid along the coron oid process which is associated with the increased feathery like T2 signal in the brachialis muscle. There is a small joint effusion. No signal abnormality within the marrow to suggest a fracture. The r adial head is intact. Increased T2 signal in a small portion of the radial collateral ligament.. The common extensor tendon is intact. The ulnar collateral ligament has a small amount of increased T2 si gnal and is not very well visualized. Common flexor tendon is negative. MR/MR elbow LT wo con* [id number] IMPRESSION: 1. Normal biceps tendon. No tear and no edema within the biceps muscle. 2. Very mild increased T2 signal in the distal brachialis muscle and tendon at its insertion to the coronoid process of the ulna. Consistent with a mild spra in. Tiny tear is not excluded at the insertion site. This would be a very small tear. 3. Small joint effusion. 4. There is a small amount of increased T2 signal within both the ulnar collat eral ligament and the radial collateral ligament which may be degenerative. The re is not a lot of adjacent edema.
== END 2023-10-05 23:59 | disposition home or self-care (01) ==
PROVIDERS: PCP Nurse Practitioner Family; Visit Provider Internal Medicine Medical Oncology
DX: D50.0 Iron deficiency anemia secondary to blood loss (chronic); Z79.899 Other long term (current) drug therapy
CPT/HCPCS: 36415; 73221; 80053; 82728; 83540; 83550; 85025; 99215

== ENCOUNTER 2023-11-02 14:00 | Oncology outpatient (recurring) (ONCR) | payer OTHER, MEDICAID, SELFPAY ==
[2023-10-19 14:37] VITALS: BP 136/78; PULSE 81; RESP 16; TEMP 36.3; O2SAT 96
[2023-10-19] MEDS: iron sucrose 200 MG in sodium chloride 0.9% (100 ml) 100 ML 220 MG IV (15:08)
[2023-10-19 15:46] VITALS: BP 121/71; PULSE 71; RESP 18; TEMP 36.6; O2SAT 98
[2023-10-26 14:12] VITALS: BP 121/73; PULSE 75; RESP 16; TEMP 36.8; O2SAT 99
[2023-10-26] MEDS: iron sucrose 200 MG in sodium chloride 0.9% (100 ml) 100 ML 220 MG IV (14:24)
[2023-10-26 15:03] VITALS: BP 121/73; PULSE 75; RESP 16; TEMP 36.5; O2SAT 95
[2023-11-02 14:04] VITALS: BP 105/69; PULSE 79; RESP 16; TEMP 37.1; O2SAT 96
[2023-11-02] MEDS: iron sucrose 200 MG in sodium chloride 0.9% (100 ml) 100 ML 220 MG IV (14:18)
[2023-11-02] MEDS: sodium chloride 0.9% 250 ML 75 ML IV (14:19)
[2023-11-02 14:59] VITALS: BP 96/68; PULSE 76; TEMP 36.7; O2SAT 94
== END 2023-11-04 23:59 | disposition home or self-care (01) ==
PROVIDERS: PCP Nurse Practitioner Family; Visit Provider Internal Medicine Medical Oncology
DX: D50.9 Iron deficiency anemia, unspecified (principal); Z53.9 Procedure and treatment not carried out, unspecified reason; Z79.899 Other long term (current) drug therapy
CPT/HCPCS: 82274; 96365; J1756; J7050

== ENCOUNTER → 2023-11-03 10:35 | Outpatient (BNVA) | payer OTHER, MEDICAID, SELFPAY | PROVIDERS: PCP Nurse Practitioner Family; Referring Provider Internal Medicine Medical Oncology; Visit Provider Student in an Organized Health Care Education/Training Program | DX: D64.9 Anemia, unspecified (principal) | CPT/HCPCS: 99204 ==

== ENCOUNTER 2023-11-13 13:59 | Emergency (ER) | payer OTHER, MEDICAID, SELFPAY ==
[2023-11-13 14:01] VITALS: BP 120/79; PULSE 75; RESP 16; TEMP 36.8; O2SAT 95
--- NOTE | 2023-11-13 14:11 | ED_ITS ---
HPI - Extremity Problem General: Chief complaint: Extremity Problem,Nontraumatic Stated complaint: skin tear Time Seen by Provider: 11/13/23 14:03 Source: patient Mode of arrival: ambulatory Limitations: no limitations History of Present Illness: Patient is a 77-year-old female who presents to the ED today for evaluation of laceration/skin tear to her right foot. Patient states she was walking her dog out the door when the dog yanked on the leash causing her to skid her foot on the concrete. She states she sustained a few skin tears. States she is not having any bony tenderness and doesn't believe anything is broken and does not want x-ray imaging. Last tetanus two years ago. Complaint: extremity pain Onset (ago): hour(s) Pain Consistency: constant Location: left and toe Radiation: none Relieving factors: nothing Exacerbating factors: nothing Associated symptoms: Reports no associated symptoms Related Data Home Medications Medication Instructions Recorded Confirmed amlodipine 5 mg tablet 5 mg PO QAM 07/23/20 11/03/23 pantoprazole 40 mg tablet,delayed 40 mg PO QAM 07/23/20 11/03/23 release potassium chloride 20 mEq 20 meq PO BID 07/23/20 11/03/23 tablet,extended release(part/cryst) vit A 12,500 unit-zinc 12.5 cap PO 09/26/23 11/03/23 [id number]-epegfy-dwdlw-bilberry-herb #261 capsule (L[employer] Vision Support) fluoxetine 20 mg capsule 20 mg PO DAILY 10/05/23 11/03/23 ibuprofen 200 mg tablet 200 mg PO Q6H PRN 10/05/23 11/03/23 Previous Rx's Medication Instructions Recorded Bone Growth Stimulator E0748 #1 ea 08/23/21 albuterol sulfate 2.5 mg/3 mL 2.5 mg (3 mL) inhalation QID PRN 03/30/23 (0.083 %) solution for nebulization shortness of breath or wheezing #180 mL isosorbide mononitrate 30 mg 30 mg PO DAILY #30 tabs 08/15/23 tablet,extended release 24 hr cephalexin 500 mg capsule 500 mg PO Q6H 7 days #28 caps 11/13/23 Allergies Allergy/AdvReac Type Severity Reaction Status Date / Time No Known Allergies Allergy Verified 11/03/23 10:51 Review of Systems Musc: Reports: extremity pain Skin/Breast: Reports: other (skin tear) PFSH ED PFSH: Medical History Hypertension Atrial fibrillation Patient cannot take any aspirin or oral anticoagulant because of bleeding COPD (chronic obstructive pulmonary disease) Aortic stenosis Gastro-esophageal reflux disease with esophagitis Postlaminectomy syndrome, cervical region Spondylolisthesis, lumbar region Surgical History History of cholecystectomy History of appendectomy Postlaminectomy syndrome, lumbar region 08/10/2015 Dr. Julia Luis. Bilateral L2-L3 laminotomy/foraminotomy, with limited medial facetectomy 05/11/2009 left L5-S1 hemilaminotomy/discectomy/foraminotomy, reexploration. History of fusion of cervical spine 08/03/2005 C5-C6, C6-C7 ACDFF History of knee replacement Date of Procedure: 11/29/2016 Procedure: Left total knee arthroplasty utilizing the following components: The [employer] triathlon Total Knee System with a Size 4 Triathlon Posterior Stabilized Left Cemented Femur and a Size 4 Triathlon [place] Tibial Baseplate Cemented with a Size 4 x 13 Mm Posterior Stabilized X3 Insert and Asymmetric 32 x 10 mm [place] Family History Mother Heart disease Hyperthyroidism Father Heart disease CAD (coronary artery disease) Diabetes Brother Aneurysm Atrial fibrillation Diabetes Hypertension Hyperthyroidism Sudden cardiac Other Anemia Stroke Denies family history of Congestive heart failure (CHF) Arrhythmia TIA (transient ischemic attack) Hyperlipidemia Chronic kidney disease (CKD) Peripheral vascular disease Congenital heart disease Carotid artery disease Pulmonary embolism Cardiomyopathy Social History Smoking and tobacco/nicotine status: former use of tobacco/nicotine Quit status (tobacco/nicotine): has quit using Year quit tobacco: 2000 Former quit date comment: 2 ppd X 40 years Alcohol intake: former Substance/Drug Use: never Household members: spouse Marital status: Current occupational status: retired and disabled Physical Exam Const: COMMON NORMALS: no acute distress, average body habitus, patient oriented x3, no limitations, healthy appearing, alert and well nourished Extremity: LEFT LOWER EXTREMITY: Yes foot & digits OTHER: small skin avulsion lateral aspect L great toe and one to plantar aspect; nothing repairable at this time Neuro: COMMON NORMALS: patient oriented x3, moves all extremities and no focal motor deficits SENSORIUM/ORIENTATION: Yes alert Skin: NARRATIVE SKIN EXAM: see above Course Vital Signs: Vital signs: Vital Signs Temperature 98.2 F 11/13/23 14:01 Pulse Rate 75 11/13/23 14:01 Respiratory Rate 16 11/13/23 14:01 Blood Pressure 120/79 11/13/23 14:01 Pulse Oximetry 95 11/13/23 14:01 Oxygen Delivery Me thod Room Air 11/13/23 14:01 MDM - Extremity (Nontraumatic) Medical Decision Making Skin tears will be copiously irrigated and dressed. Will place her on prophylactic antibiotics as wounds did appear dirty. Wound care/infection precautions at home discussed. Tetanus is up-to-date. No radiology studies performed this visit Discharge Plan Discharge Patient Disposition: Home Clinical Impression: Avulsion of skin of toe Condition: Stable Prescriptions: New cephalexin 500 mg capsule 500 mg PO Q6H 7 Days Qty: 28 0RF No Action ibuprofen 200 mg tablet 200 mg PO Q6H PRN fluoxetine 20 mg capsule 20 mg PO DAILY albuterol sulfate 2.5 mg /3 mL (0.083 %) solution for nebulization 2.5 mg inhalation QID PRN (Reason: shortness of breath or wheezing) Qty: 180 3RF isosorbide mononitrate 30 mg tablet extended release 24 hr 30 mg PO DAILY Qty: 30 5RF Lipotriad Vision Support 12,500 unit- 12.5 mg capsule PO (DME) Bone Growth Stimulator E0748 See Rx Instructions .Route .MEDSUPPLY Qty: 1 0RF Rx Instructions: As directed amlodipine 5 mg tablet 5 mg PO QAM potassium chloride 20 mEq tablet,ER particles/crystals 20 meq PO BID pantoprazole 40 mg tablet,delayed release (DR/EC) 40 mg PO QAM Discharge Orders: Discharge ED (Routine); Ordered 11/13/23 Ordered By: Bella Houser Referrals: Lelia Hackett FNP [Primary Care Provider] - Patient Instructions: Skin Avulsion Activity Restrictions/Additional Instructions: Keep clean with warm soap and water multiple times a day. Monitor for signs of infection such as redness, swelling, worsening pain, streaking up your foot or leg, purulent drainage, fevers, or any other concerns you may have. Please seek medical reevaluation if these occur. Coding Level of Care Code ED Developmental Therapist for Navjot Ruiz
[2023-11-13 15:09] VITALS: BP 118/76; PULSE 71; RESP 18; O2SAT 96
== END 2023-11-13 14:25 | disposition home or self-care (01) ==
PROVIDERS: Emergency Provider Physician Assistant; PCP Nurse Practitioner Family
DX: S91.112A Laceration without foreign body of left great toe without damage to nail, initial encounter (principal); Z87.891 Personal history of nicotine dependence; I10 Essential (primary) hypertension; J44.9 Chronic obstructive pulmonary disease, unspecified; W18.40XA Slipping, tripping and stumbling without falling, unspecified, initial encounter
CPT/HCPCS: 99283

== ENCOUNTER → 2023-11-14 11:02 | Outpatient (BNVA) | payer OTHER, MEDICAID, SELFPAY | PROVIDERS: PCP Nurse Practitioner Family; Visit Provider Physician Assistant | DX: M75.42 Impingement syndrome of left shoulder (principal) | CPT/HCPCS: 20610; 99213; J3301 ==

== ENCOUNTER 2023-11-16 14:00 | Oncology outpatient (recurring) (ONCR) | payer OTHER, MEDICAID, SELFPAY ==
[2023-11-09] MEDS: iron sucrose 200 MG in sodium chloride 0.9% (100 ml) 100 ML 220 MG IV (14:02)
[2023-11-09 14:45] VITALS: BP 109/68; PULSE 74; RESP 18; TEMP 36.6; O2SAT 98
[2023-11-16 13:21] VITALS: BP 122/72; PULSE 75; RESP 16; TEMP 36.5; O2SAT 97
[2023-11-16] MEDS: iron sucrose 200 MG in sodium chloride 0.9% (100 ml) 100 ML 220 MG IV (13:41)
[2023-11-16 14:21] VITALS: BP 111/71; PULSE 68; RESP 16; TEMP 36.4; O2SAT 98
== END 2023-12-04 23:59 | disposition home or self-care (01) ==
PROVIDERS: PCP Nurse Practitioner Family; Visit Provider Internal Medicine Medical Oncology
DX: D50.9 Iron deficiency anemia, unspecified (principal); Z53.9 Procedure and treatment not carried out, unspecified reason; Z79.899 Other long term (current) drug therapy
CPT/HCPCS: 96365; J1756

== ENCOUNTER → 2023-12-18 11:03 | Outpatient (BNVA) | payer OTHER, MEDICAID, SELFPAY | PROVIDERS: PCP Nurse Practitioner Family; Visit Provider Family Medicine | DX: Z01.818 Encounter for other preprocedural examination (principal) | CPT/HCPCS: 93005 ==

== ENCOUNTER 2023-12-27 10:06 | Oncology outpatient (recurring) (ONCR) | payer OTHER, MEDICAID, SELFPAY ==
[2023-12-27 10:25] LABS: Basophils # 0.1 10^3/uL (0.0-0.1); Basophils % 0.6 %; Eosinophils # 0.1 10^3/uL (0.0-0.8); Eosinophils % 1.4 %; Hematocrit 40.4 % (36-47); Lymphocytes % 38.5 %; Mean Corpuscular HGB Conc 31.2 g/dL (30-55); Mean Corpuscular Hemoglobin 26.5 pg (27-33); Mean Corpuscular Volume 84.9 fl (85-98); Mean Platelet Volume 10.6 fL (7.4-10.4); Monocytes % 12.6 %; Neutrophils # 3.63 10^3/uL (1.8-7.7); Neutrophils % 46.3 %; Nucleated Red Blood Cells % 0 %; Platelet Count 208 10^3/cmm (157-399); Red Blood Count 4.76 10^6/uL (3.85-5.65); Red Cell Distribution Width 27.9 % (12.1-15.1); White Blood Count 7.85 10^3/uL (3.29-11.43)
[2023-12-27 10:42] LABS: Slide Review Slide Review Perform
[2023-12-27 10:50] LABS: Albumin Level 3.9 g/dL (3.5-5.2); Alkaline Phosphatase 98 U/L (35-105); Anion Gap 16.5 (5-19); Aspartate Amino Transferase 24 U/L (0-32); Blood Urea Nitrogen 11 mg/dL (8-23); Carbon Dioxide 25 mmol/L (22-29); Chloride 104 mmol/L (98-107); Ferritin 155 ng/mL (15-150); Globulin 3.1 g/dL (1.3-4.6); Glucose 114 mg/dL (65-115); Iron 47 ug/dL (37-145); Osmolality Calculated 292 mOsm/kg (285-295); Percent Saturation 18.3 % (20-50); Potassium 4.5 mmol/L (3.5-5.1); Sodium 141 mmol/L (136-145); Total Bilirubin 0.5 mg/dL (0.15-1.2); Total Iron Binding Capacity 256 mcg/dl; Unsaturated Iron Binding 209 ug/dL (112-347)
[2023-12-27 11:00] LABS: Alanine Aminotransferase 26 U/L (0-33)
== END 2024-01-04 23:59 | disposition home or self-care (01) ==
PROVIDERS: PCP Nurse Practitioner Family; Visit Provider Internal Medicine Medical Oncology
DX: D50.0 Iron deficiency anemia secondary to blood loss (chronic) (principal); Z79.899 Other long term (current) drug therapy; Z53.9 Procedure and treatment not carried out, unspecified reason
CPT/HCPCS: 36415; 80053; 82728; 83540; 83550; 85025; 99214

== ENCOUNTER 2024-01-01 06:04 | Day surgery (SDC) | payer OTHER, MEDICAID, SELFPAY ==
[2024-01-01 06:24] VITALS: BP 108/87; PULSE 104; RESP 18; TEMP 36.5; O2SAT 94; BMI 28.1
[2024-01-01] MEDS: sodium chloride 0.9% 1,000 ML 30 ML IV (06:28)
--- NOTE | 2024-01-01 06:58 | ANES.PREANE2 ---
Pre-Anesthetic Assessment Height/Weight: Height 1.63 m Weight 74.389 kg Temp Pulse Resp BP Pulse Ox O2 Del Method 97.7 F 104 H 18 108/87 94 Room Air 01/01/24 06:24 01/01/24 06:24 01/01/24 06:24 01/01/24 06:24 01/01/24 06:24 01/01/24 06:24 Preop Diagnosis: Anemia Operation Date: 01/01/24 07:30 Proposed Procedures p EGD 60173, [id number], G0105(Not Applicable) - Iron Marinelli MD s Colonoscopy(Not Applicable) - Iron Marinelli MD Familial anesthetic complications: None Last intake: Intake Last Liquid Date 12/31/23 Last Liquid Time 23:00 Last Solid Date 12/30/23 Last Solid Time 22:00 Social Alcohol (rare) Exam alert, oriented x 3 and clear to auscultation bilaterally Airway Submandibular: within normal limits Cervical ROM: within normal limits Mallampati: Class II Dentition: false Comments: Comments: Previous cervical fusion. Pulmonary Chronic Obstructive Pulmonary Disease CV/HEM Atrial Fibrillation, Anemia, Stable Angina, Congestive Heart Failure, Deep Vein Thrombosis, Hypertension and Murmur ECHO 03/29 LV systolic function is normal with EF 55 to 60%. Mild mitral regurgitation. Mild aortic stenosis Mild tricuspid regurgitation. Mild pulmonary hypertension Mild pulmonic regurgitation No comparison studies are available. Stress test from 07/27 on chart None reported Hepatic None reported GI Gastroesophageal Reflux Disease Metabolic None reported Musc/skel Lower Back Pain (multiple back surgeries) Neuropsych None reported Anesthetic Plan ASA status: 3 Anesthesia: MAC Medications/Allergies Home Medications Medication Instructions Recorded Confirmed Last Taken Type amlodipine 5 mg tablet 5 mg PO QAM 07/23/20 12/28/23 01/01/24 05:00 History pantoprazole 40 mg tablet,delayed 40 mg PO QAM 07/23/20 12/28/23 12/30/23 History release potassium chloride 20 mEq 20 meq PO BID 07/23/20 12/28/23 12/30/23 History tablet,extended release(part/cryst) Bone Growth Stimulator E0748 #1 ea 08/23/21 12/27/23 12/30/23 Rx fluoxetine 20 mg capsule 20 mg PO DAILY 10/05/23 12/28/23 12/30/23 History ibuprofen 200 mg tablet 400 mg PO Q6H PRN Pain 10/05/23 12/28/23 Unknown History umeclidinium 62.5 mcg-vilanterol 2 inh inhalation DAILY 12/18/23 12/28/23 12/30/23 History 25 mcg/actuation powdr for inhalation (Anoro Ellipta) isosorbide mononitrate 30 mg 30 mg PO DAILY 12/28/23 12/28/23 01/01/24 05:00 History tablet,extended release 24 hr vit C 250 mg-vit E 90 mg-zinc 40 1 tab PO DAILY 12/28/23 12/28/23 12/30/23 History mg-copper 1 [id number] capsule Allergies Allergy/AdvReac Type Severity Reaction Status Date / Time No Known Allergies Allergy Verified 12/27/23 10:06 Current Medications Generic Name Dose Route Start Last Admin Trade Name Freq PRN Reason Stop Dose Admin Sodium Chloride 1,000 mls @ 30 mls/hr 01/01/24 06:30 01/01/24 06:28 Sodium Chloride 0.9% IV 30 mls/hr .Q24H FROYLAN Administration PFSH Anesthesia Medical History Hypertension Atrial fibrillation Patient cannot take any aspirin or oral anticoagulant because of bleeding COPD (chronic obstructive pulmonary disease) Aortic stenosis Gastro-esophageal reflux disease with esophagitis Postlaminectomy syndrome, cervical region Spondylolisthesis, lumbar region Surgical History History of cholecystectomy History of appendectomy Postlaminectomy syndrome, lumbar region 08/10/2015 Dr. Julia Luis. Bilateral L2-L3 laminotomy/foraminotomy, with limited medial facetectomy 05/11/2009 left L5-S1 hemilaminotomy/discectomy/foraminotomy, reexploration. History of fusion of cervical spine 08/03/2005 C5-C6, C6-C7 ACDFF History of knee replacement Date of Procedure: 11/29/2016 Procedure: Left total knee arthroplasty utilizing the following components: The [employer] triathlon Total Knee System with a Size 4 Triathlon Posterior Stabilized Left Cemented Femur and a Size 4 Triathlon [place] Tibial Baseplate Cemented with a Size 4 x 13 Mm Posterior Stabilized X3 Insert and Asymmetric 32 x 10 mm [place] Family History Mother Heart disease Hyperthyroidism Father Heart disease CAD (coronary artery disease) Diabetes Brother Aneurysm Atrial fibrillation Diabetes Hypertension Hyperthyroidism Sudden cardiac Other Anemia Stroke Denies family history of Congestive heart failure (CHF) Arrhythmia TIA (transient ischemic attack) Hyperlipidemia Chronic kidney disease (CKD) Peripheral vascular disease Congenital heart disease Carotid artery disease Pulmonary embolism Cardiomyopathy Social History Smoking and tobacco/nicotine status: former use of tobacco/nicotine Quit status (tobacco/nicotine): has quit using Year quit tobacco: 2000 Former quit date comment: 2 ppd X 40 years Alcohol intake: former Substance/Drug Use: never Household members: spouse Marital status: Current occupational status: retired and disabled Data Anesthesia Cardiac Studies: Echocardiogram 03/17/23 Sestamibi Stress Test (Cardiology) 07/14/23
--- NOTE | 2024-01-01 07:02 | W.PM.OPSFHP ---
Same Day Surgery H&P Indication for Procedure/HPI DATE OF PROCEDURE: January 01, 2024 CHIEF COMPLAINT/INDICATIONFOR SURGICAL PROCEDURE: Iron deficiency anemia PREOP DIAGNOSIS: Iron deficiency anemia PLANNED PROCEDURE: Operation Date: 01/01/24 07:30 Proposed Procedures p EGD 86068, [id number], G0105(Not Applicable) - Iron Marinelli MD s Colonoscopy(Not Applicable) - Iron Marinelli MD Medications/Allergies* Home Medications Medication Instructions Recorded Confirmed Type amlodipine 5 mg tablet 5 mg PO QAM 07/23/20 12/28/23 History pantoprazole 40 mg tablet,delayed 40 mg PO QAM 07/23/20 12/28/23 History release potassium chloride 20 mEq 20 meq PO BID 07/23/20 12/28/23 History tablet,extended release(part/cryst) fluoxetine 20 mg capsule 20 mg PO DAILY 10/05/23 12/28/23 History ibuprofen 200 mg tablet 400 mg PO Q6H PRN Pain 10/05/23 12/28/23 History umeclidinium 62.5 mcg-vilanterol 2 inh inhalation DAILY 12/18/23 12/28/23 History 25 mcg/actuation powdr for inhalation (Anoro Ellipta) isosorbide mononitrate 30 mg 30 mg PO DAILY 12/28/23 12/28/23 History tablet,extended release 24 hr vit C 250 mg-vit E 90 mg-zinc 40 1 tab PO DAILY 12/28/23 12/28/23 History mg-copper 1 [id number]-brjixa capsule Allergies/Adverse Reactions Allergy/AdvReac Type Severity Reaction Status Date / Time No Known Allergies Allergy Verified 12/27/23 10:06 Current Medications: Generic Name Dose Route Start Last Admin Trade Name Freq PRN Reason Stop Dose Admin Sodium Chloride 1,000 mls @ 30 mls/hr 01/01/24 06:30 01/01/24 06:28 Sodium Chloride 0.9% IV 30 mls/hr .Q24H FROYLAN Administration Pertinent History/Comorbid Conditions* Medical History (Updated 11/21/23 @ 00:01 by CYRUS Jacob) Hypertension Atrial fibrillation Patient cannot take any aspirin or oral anticoagulant because of bleeding COPD (chronic obstructive pulmonary disease) Aortic stenosis Gastro-esophageal reflux disease with esophagitis Postlaminectomy syndrome, cervical region Spondylolisthesis, lumbar region Surgical History (Updated 10/05/23 @ 17:06 by Clive Levin MD) History of cholecystectomy History of appendectomy Postlaminectomy syndrome, lumbar region 08/10/2015 Dr. Julia Luis. Bilateral L2-L3 laminotomy/foraminotomy, with limited medial facetectomy 05/11/2009 left L5-S1 hemilaminotomy/discectomy/foraminotomy, reexploration. History of fusion of cervical spine 08/03/2005 C5-C6, C6-C7 ACDFF History of knee replacement Date of Procedure: 11/29/2016 Procedure: Left total knee arthroplasty utilizing the following components: The [employer] triathlon Total Knee System with a Size 4 Triathlon Posterior Stabilized Left Cemented Femur and a Size 4 Triathlon [place] Tibial Baseplate Cemented with a Size 4 x 13 Mm Posterior Stabilized X3 Insert and Asymmetric 32 x 10 mm [place] Family History (Updated 05/16/23 @ 14:07 by Inna Little) Diabetes Father Brother CAD (coronary artery disease) Father Anemia Aneurysm Brother Atrial fibrillation Brother Heart disease Mother Father Hyperthyroidism Mother Brother Sudden cardiac Brother Hypertension Brother Stroke Denies family history of Congestive heart failure (CHF) Arrhythmia TIA (transient ischemic attack) Hyperlipidemia Chronic kidney disease (CKD) Peripheral vascular disease Congenital heart disease Carotid artery disease Pulmonary embolism Cardiomyopathy Social History Smoking and tobacco/nicotine status: former use of tobacco/nicotine Quit status (tobacco/nicotine): has quit using Year quit tobacco: 2000 Former quit date comment: 2 ppd X 40 years Alcohol intake: former Substance/Drug Use: never Household members: spouse Marital status: Current occupational status: retired and disabled Pertinent Exam Findings alert, oriented x 3, clear to auscultation bilaterally, regular rate & rhythm and procedure specific exam findings abdomen soft, nt, nd Recommendations Surgery/Procedure today Other Plans: Proceed with endoscopy today Coding Level of Care Code Acute Code for Chg Fwd
[2024-01-01 08:14] VITALS: BP 99/71; PULSE 84; RESP 28; TEMP 36.4; O2SAT 95
[2024-01-01 08:41] VITALS: BP 110/78; PULSE 94; RESP 18; O2SAT 96
--- NOTE | 2024-01-01 08:53 | ANE.PACU2 ---
Inpatient post-anesthesia follow up: Airway intact: Yes Vital signs: Temperature 97.6 F Pulse Rate 94 Respiratory Rate 18 Blood Pressure 110/78 Pulse Oximetry 96 Oxygen Delivery Me thod Room Air Oxygen Flow Rate 6 Fraction of Inspir ed Oxygen Hydration adequate: Yes Nausea and vomiting: No Pain level: 1 Mental status: Baseline
== END 2024-01-01 08:53 | disposition home or self-care (01) ==
PROVIDERS: PCP Nurse Practitioner Family; Visit Provider Student in an Organized Health Care Education/Training Program
PROC: 0DJ08ZZ Inspection of Upper Intestinal Tract, Via Natural or Artificial Opening Endoscopic (ICD-10-PCS; CPT 43235; principal; 2024-01-01 07:30)
PROC: 0DJD8ZZ Inspection of Lower Intestinal Tract, Via Natural or Artificial Opening Endoscopic (ICD-10-PCS; CPT 45378; 2024-01-01 07:30)
DX: D50.0 Iron deficiency anemia secondary to blood loss (chronic) (principal); I10 Essential (primary) hypertension; I48.91 Unspecified atrial fibrillation; J44.9 Chronic obstructive pulmonary disease, unspecified; Z87.891 Personal history of nicotine dependence; Z98.1 Arthrodesis status; K21.9 Gastro-esophageal reflux disease without esophagitis
CPT/HCPCS: 43235; 45378; 45380; J2704; J7030

== ENCOUNTER 2024-02-02 09:07 | Emergency (ER) | payer MEDICARE, MEDICAID, SELFPAY ==
[2024-02-02 09:09] VITALS: BP 148/94; PULSE 92; RESP 17; TEMP 36.6; O2SAT 96; BMI 29.8
[2024-02-02 09:50] VITALS: BP 148/94; PULSE 83; O2SAT 93
[2024-02-02] MEDS: tetanus-diphtheria tox (adult) 0.5 mL SDV IM (09:51)
--- NOTE | 2024-02-02 10:08 | ED_ITS ---
HPI - Wound/Laceration General: Chief Complaint: Wound/Laceration Stated Complaint: CUT ON FINGER Time Seen by Provider: 02/02/24 09:16 History of Present Illness: 78-year-old female who presents to the e mergency room via EMS she has a laceration on her left third finger. Its on the palmar surface she is able to flex and extend against resistance without any weakness. She is unsure of her last tetanus shot no other injuries Related Data Home Medications Medication Instructions Recorded Confirmed amlodipine 5 mg tablet 5 mg PO QAM 07/23/20 02/02/24 pantoprazole 40 mg tablet,delayed 40 mg PO QAM 07/23/20 02/02/24 release potassium chloride 20 mEq 20 meq PO BID 07/23/20 02/02/24 tablet,extended release(part/cryst) fluoxetine 20 mg capsule 20 mg PO DAILY 10/05/23 02/02/24 ibuprofen 200 mg tablet 400 mg PO Q6H PRN Pain 10/05/23 02/02/24 umeclidinium 62.5 mcg-vilanterol 2 inh inhalation DAILY 12/18/23 02/02/24 25 mcg/actuation powdr for inhalation (Anoro Ellipta) isosorbide mononitrate 30 mg 30 mg PO DAILY 12/28/23 02/02/24 tablet,extended release 24 hr vit C 250 mg-vit E 90 mg-zinc 40 1 tab PO DAILY 12/28/23 02/02/24 mg-copper 1 [id number]-[id number] capsule Previous Rx's Medication Instructions Recorded Bone Growth Stimulator E0748 #1 ea 08/23/21 mupirocin 2 % topical ointment 1 applic topical BID #22 grams 02/02/24 Allergies Allergy/AdvReac Type Severity Reaction Status Date / Time No Known Allergies Allergy Verified 12/27/23 10:06 [facility] ED PFS: Medical History Hypertension Atrial fibrillation Patient cannot take any aspirin or oral anticoagulant because of bleeding COPD (chronic obstructive pulmonary disease) Aortic stenosis Gastro-esophageal reflux disease with esophagitis Postlaminectomy syndrome, cervical region Spondylolisthesis, lumbar region Surgical History History of cholecystectomy History of appendectomy Postlaminectomy syndrome, lumbar region 08/10/2015 Dr. Julia Luis. Bilateral L2-L3 laminotomy/foraminotomy, with limited medial facetectomy 05/11/2009 left L5-S1 hemilaminotomy/discectomy/foraminotomy, reexploration. History of fusion of cervical spine 08/03/2005 C5-C6, C6-C7 ACDFF History of knee replacement Date of Procedure: 11/29/2016 Procedure: Left total knee arthroplasty utilizing the following components: The [employer] triathlon Total Knee System with a Size 4 Triathlon Posterior Stabilized Left Cemented Femur and a Size 4 Triathlon [place] Tibial Baseplate Cemented with a Size 4 x 13 Mm Posterior Stabilized X3 Insert and Asymmetric 32 x 10 mm [place] Family History Mother Heart disease Hyperthyroidism Father Heart disease CAD (coronary artery disease) Diabetes Brother Aneurysm Atrial fibrillation Diabetes Hypertension Hyperthyroidism Sudden cardiac Other Anemia Stroke Denies family history of Congestive heart failure (CHF) Arrhythmia TIA (transient ischemic attack) Hyperlipidemia Chronic kidney disease (CKD) Peripheral vascular disease Congenital heart disease Carotid artery disease Pulmonary embolism Cardiomyopathy Social History Smoking and tobacco/nicotine status: former use of tobacco/nicotine Quit status (tobacco/nicotine): has quit using Year quit tobacco: 2000 Former quit date comment: 2 ppd X 40 years Alcohol intake: former Substance/Drug Use: never Household members: spouse Marital status: Current occupational status: retired and disabled Physical Exam Const: ORIENTATION/CONSCIOUSNESS: Yes awake Cardio: COMMON NORMALS: regular rate, regular rhythm and No murmurs present (Cardio) RATE: regular rate RHYTHM: regular rhythm GI: COMMON NORMALS: Soft to palpation and No hepatosplenomegaly present AUSCULTATION: Yes normoactive bowel sounds PALPATION: Yes Soft to palpation, No Tenderness to palpation present (GI), No Guarding due to palpation present (GI) and Yes No hepatosplenomegaly present Extremity: OTHER: Avulsion flap injury to the palmar surface of the left third finger. Procedures Laceration Laceration 1: Site: hand Side (If applicable): left (3rd finger) Description: flap Depth: simple, single layer Local Anesthetic: lidocaine 1% Amount of anesthesia used (mL): 6 (Digital nerve block) Pre-repair: irrigated extensively and deep structures intact Skin layer closed with: nylon Size (cm): 4-0 Number of sutures: 2 Nerve Block Nerve Block 1: Time out performed: Yes Local Anesthetic: lidocaine 1% Amount of anesthesia used (mL): 6 Side: left Nerve Blocks: digital Procedure Successful: Yes Patient Tolerated Procedure: well Complications: none Course Vital Signs: Vital signs: Vital Signs Temperature 97.8 F 02/02/24 09:09 Pulse Rate 85 02/02/24 11:00 Respiratory Rate 17 02/02/24 09:09 Blood Pressure 149/97 02/02/24 11:00 Pulse Oximetry 94 02/02/24 11:00 Oxygen Delivery Me thod Room Air 02/02/24 09:50 MDM - Wound/Laceration Medical Decision Making Digital nerve block applied apex of the wound position with a single interrupted suture in running locking suture applied good approximation and cosmesis and hemostasis. Wound care instructions given remove suture in 10 days. No radiology studies performed this visit Discharge Plan Discharge Patient Disposition: Home Clinical Impression: Laceration of finger Condition: Stable Prescriptions: New mupirocin 2 % ointment 1 applic topical BID Qty: 22 0RF No Action ibuprofen 200 mg tablet 400 mg PO Q6H PRN (Reason: Pain) fluoxetine 20 mg capsule 20 mg PO DAILY Anoro Ellipta 62.5-25 mcg/actuation blister with device 2 inh inhalation DAILY (DME) Bone Growth Stimulator E0748 See Rx Instructions .Route .MEDSUPPLY Qty: 1 0RF Rx Instructions: As directed amlodipine 5 mg tablet 5 mg PO QAM potassium chloride 20 mEq tablet,ER particles/crystals 20 meq PO BID pantoprazole 40 mg tablet,delayed release (DR/EC) 40 mg PO QAM vit C,Q-Lm-bcdzw-lutein-zeaxan 250-90-40-1 mg Capsule 1 tab PO DAILY isosorbide mononitrate 30 mg tablet extended release 24 hr 30 mg PO DAILY Discharge Orders: Discharge ED (Routine); Ordered 02/02/24 Ordered By: Kenneth Melgoza Referrals: Lelia Hackett FNP [Primary Care Provider] - Discharge Diet: Usual diet Discharge Activity: Increase activity as tolerated Patient Instructions: Laceration (ED), Opioid Safety, Pain Management Activity Restrictions/Additional Instructions: Thank you for choosing [facility] for your healthcare needs today. It is very important that you follow up as instructed or that you return to the Emergency Department should you have concerns or if your condition changes or worsens in any way. You were seen in the emergency room for laceration to your left third finger. Laceration was closed with sutures. Your tetanus was updated. Recommend applying mupirocin topically twice a day to the wound. You should have the sutures removed in approximately 10 days. Return if there is signs of infection Coding Level of Care Code ED Senior Medical Transcriptionist for Navjot Ruiz
[2024-02-02] MEDS: lidocaine 1% 10 ML INJ INJECTION (10:28)
[2024-02-02 11:00] VITALS: BP 149/97; PULSE 85; O2SAT 94
== END 2024-02-02 11:01 | disposition home or self-care (01) ==
PROVIDERS: Emergency Provider Family Medicine; PCP Nurse Practitioner Family
DX: S61.213A Laceration without foreign body of left middle finger without damage to nail, initial encounter (principal); X58.XXXA Exposure to other specified factors, initial encounter; J44.9 Chronic obstructive pulmonary disease, unspecified; I10 Essential (primary) hypertension; Z87.891 Personal history of nicotine dependence
CPT/HCPCS: 12001; 90471; 90714; 99283

== ENCOUNTER → 2024-02-20 15:05 | Outpatient (BNVA) | payer MEDICARE, MEDICAID, SELFPAY | PROVIDERS: PCP Nurse Practitioner Family; Visit Provider Internal Medicine Cardiovascular Disease | DX: I48.0 Paroxysmal atrial fibrillation (principal); R07.89 Other chest pain; I35.0 Nonrheumatic aortic (valve) stenosis; I10 Essential (primary) hypertension; Z87.891 Personal history of nicotine dependence | CPT/HCPCS: 99214 ==